=== PATIENT | male | born 1955 | race Caucasian/White ===

== ENCOUNTER 2023-02-16 06:42 | Outpatient (OUT) | payer MEDICARE, SELFPAY ==
[2023-02-16 07:19] LABS: Basophils Absolute Auto 0.1 10^3/uL (0.0-0.1); Basophils Percent Auto 0.9 % (0.2-2.0); Eosinophils Absolute Auto 0.4 10^3/uL (0.0-0.7); Hematocrit 44.3 % (42.0-54.0); Immature Granulocytes Abs Auto 0.02 10^3/uL (0.00-0.03); Immature Granulocytes Pct Auto 0.3 % (0.0-0.5); Lymphocytes Absolute Auto 2.1 10^3/uL (1.2-3.8); Lymphocytes Percent Auto 30.5 % (20.5-60.0); Mean Corpuscular HGB Conc 33.9 g/dL (29.9-35.2); Mean Corpuscular Hemoglobin 30.9 pg (25.9-34.0); Mean Corpuscular Volume 91.2 fL (80.0-94.0); Mean Platelet Volume 9.5 fL (9.5-13.5); Monocytes Absolute Auto 0.6 10^3/uL (0.3-0.8); Monocytes Percent Auto 8.7 % (1.7-12.0); Neutrophils Absolute Auto 3.6 10^3/uL (1.4-6.5); Neutrophils Percent Auto 53.6 % (43.0-75.0); Platelet Count 257 10^3/uL (150-450); Red Blood Count 4.86 10^6/uL (4.70-6.10); Red Cell Distribution Width 12.7 % (11.0-15.0); White Blood Count 6.8 10^3/uL (4.0-11.0)
[2023-02-16 07:27] LABS: Estimated Average Glucose 171 mg/dL; Glycohemoglobin A1C 7.6 % (4.5-6.2)
[2023-02-16 07:31] LABS: Alanine Aminotransferase 31 U/L (16-63); Albumin Globulin Ratio 1.1; Albumin Level 3.9 g/dL (3.4-5.0); Alkaline Phosphatase 103 U/L (46-116); Anion Gap 12.4; Aspartate Amino Transferase 15 U/L (15-37); BUN Creatinine Ratio 15.2; Bilirubin Total 0.6 mg/dL (0.2-1.0); Calcium 9.4 mg/dL (8.5-10.1); Chloride 101 mmol/L (98-107); Estimated GFR (African America >60 (>=60); Estimated GFR (Non-African Ame 58 (>=60); Globulin 3.5 g/dL; Glucose 194 mg/dL (74-106); Potassium 4.4 mmol/L (3.5-5.1); Sodium 138 mmol/L (136-145); Total Protein 7.4 g/dL (6.4-8.2)
[2023-02-16 08:20] LABS: Microalbumin Urine Random 4.7 mg/dL (<=30.0)
[2023-02-16 08:40] LABS: Prostate Specific Antigen Scrn <0.13 ng/mL (<=4.00)
[2023-02-16 08:49] LABS: Bilirubin Urine NEGATIVE (NEGATIVE); Blood Urine MODERATE (NEGATIVE); Clarity Urine CLEAR (CLEAR); Color Urine LT. YELLOW (YELLOW); Glucose Urine UA NEGATIVE (NEGATIVE); Ketones Urine NEGATIVE (NEGATIVE); Leukocyte Esterase Urine NEGATIVE (NEGATIVE); Nitrite Urine NEGATIVE (NEGATIVE); Protein Urine NEGATIVE (NEG/TRACE); Specific Gravity Urine >=1.030 (1.005-1.025); Urobilinogen Urine 0.2 EU/dL (0.2-1.0); pH Urine 5.5 (5.0-9.0)
[2023-02-16 08:59] LABS: Bacteria Urine NONE SEEN #/HPF (NONE SEEN); WBC Urine NONE SEEN #/HPF (NONE SEEN)
[2023-02-16 09:00] LABS: Crystals Seen? None Seen #/HPF (None Seen); Mucus Urine MODERATE (NONE SEEN); Squamous Epithelial Cell Urine FEW #/LPF (NONE/RARE)
[2023-02-16 09:01] LABS: Cast Seen? NONE SEEN #/LPF (NONE SEEN)
== END 2023-02-16 06:43 ==
LOC: LAB 06:46
PROVIDERS: PCP Nurse Practitioner; Visit Provider Nurse Practitioner
DX: I48.91 Unspecified atrial fibrillation (principal); E55.9 Vitamin D deficiency, unspecified; I10 Essential (primary) hypertension; Z12.5 Encounter for screening for malignant neoplasm of prostate
CPT/HCPCS: 36415; 80053; 81001; 82043; 82306; 83036; 85025; G0103

== ENCOUNTER 2024-02-25 06:40 | Outpatient (OUT) | payer MEDICARE, SELFPAY ==
[2024-02-25 07:11] LABS: Basophils Absolute Auto 0.1 10^3/uL (0.0-0.1); Basophils Percent Auto 0.9 % (0.2-2.0); Eosinophils Absolute Auto 0.6 10^3/uL (0.0-0.7); Eosinophils Percent Auto 8.1 % (0.9-7.0); Hematocrit 42.9 % (42.0-54.0); Hemoglobin 14.4 g/dL (14.0-18.0); Immature Granulocytes Abs Auto 0.02 10^3/uL (0.00-0.03); Immature Granulocytes Pct Auto 0.3 % (0.0-0.5); Lymphocytes Absolute Auto 2.3 10^3/uL (1.2-3.8); Lymphocytes Percent Auto 29.3 % (20.5-60.0); Mean Corpuscular HGB Conc 33.6 g/dL (29.9-35.2); Mean Corpuscular Hemoglobin 31.2 pg (25.9-34.0); Mean Corpuscular Volume 92.9 fL (80.0-94.0); Monocytes Absolute Auto 0.8 10^3/uL (0.3-0.8); Monocytes Percent Auto 10.1 % (1.7-12.0); Neutrophils Percent Auto 51.3 % (43.0-75.0); Platelet Count 273 10^3/uL (150-450); Red Blood Count 4.62 10^6/uL (4.70-6.10); Red Cell Distribution Width 12.4 % (11.0-15.0); White Blood Count 7.7 10^3/uL (4.0-11.0)
[2024-02-25 07:15] LABS: Bilirubin Urine NEGATIVE (NEGATIVE); Blood Urine SMALL (NEGATIVE); Clarity Urine CLEAR (CLEAR); Color Urine YELLOW (YELLOW); Glucose Urine UA NEGATIVE (NEGATIVE); Ketones Urine NEGATIVE (NEGATIVE); Leukocyte Esterase Urine NEGATIVE (NEGATIVE); Nitrite Urine NEGATIVE (NEGATIVE); Protein Urine NEGATIVE (NEG/TRACE); Specific Gravity Urine >=1.030 (1.005-1.025); Urobilinogen Urine 0.2 EU/dL (0.2-1.0)
[2024-02-25 07:21] LABS: Creatinine Urine Random 216.64 mg/dL (20.00-300.00); Microalbum Creatinine Ratio Ur 17.5 mg/g (0.0-29.9); Microalbumin Urine Random 3.8 mg/dL (<=30.0)
[2024-02-25 07:23] LABS: Estimated Average Glucose 160 mg/dL; Glycohemoglobin A1C 7.2 % (4.5-6.2)
[2024-02-25 07:30] LABS: Urine Microscopic Indicated YES
[2024-02-25 07:32] LABS: Bacteria Urine NONE SEEN #/HPF (NONE SEEN); WBC Urine NONE SEEN #/HPF (NONE SEEN)
[2024-02-25 07:33] LABS: Mucus Urine LARGE (NONE SEEN); Squamous Epithelial Cell Urine FEW #/LPF (NONE/RARE)
[2024-02-25 08:20] LABS: Alanine Aminotransferase 30 U/L (16-63); Albumin Globulin Ratio 1.2; Albumin Level 3.8 g/dL (3.4-5.0); Alkaline Phosphatase 89 U/L (46-116); Anion Gap 11.4; Aspartate Amino Transferase 16 U/L (15-37); BUN Creatinine Ratio 14.7; Bilirubin Total 0.8 mg/dL (0.2-1.0); Calcium 9.3 mg/dL (8.5-10.1); Carbon Dioxide 28.9 mmol/L (21.0-32.0); Chloride 103 mmol/L (98-107); Chol HDL Ratio 2.8; Cholesterol 132 mg/dL (<=200); Estimated GFR (African America >60 (>=60); Estimated GFR (Non-African Ame >60 (>=60); Globulin 3.3 g/dL; Glucose 161 mg/dL (74-106); HDL Cholesterol 47 mg/dL (40-60); Potassium 4.3 mmol/L (3.5-5.1); Sodium 139 mmol/L (136-145); Total Protein 7.1 g/dL (6.4-8.2); Triglycerides 135 mg/dL (<=150)
[2024-02-25 08:56] LABS: Prostate Specific Antigen Dx 0.16 ng/mL (<=4.00)
== END 2024-02-25 06:41 | disposition home or self-care (01) ==
LOC: LAB 06:40
PROVIDERS: PCP Nurse Practitioner; Visit Provider Nurse Practitioner
DX: E78.2 Mixed hyperlipidemia (principal); I48.20 Chronic atrial fibrillation, unspecified; Z12.5 Encounter for screening for malignant neoplasm of prostate; E55.9 Vitamin D deficiency, unspecified; E11.9 Type 2 diabetes mellitus without complications; K21.9 Gastro-esophageal reflux disease without esophagitis; I10 Essential (primary) hypertension
CPT/HCPCS: 36415; 80053; 80061; 81001; 82043; 82306; 82570; 83036; 84153; 85025

== ENCOUNTER 2024-07-31 07:49 | Outpatient (OUT) | payer MEDICARE, SELFPAY ==
--- NOTE | 2024-07-31 07:52 | VEIN_ITS ---
The [address] [address] Patient Name: EDGAR BARNEY MRN: [id number] date: 1955 Sex: M Assigned Patient Location: Current Patient Location: Accession/Order Number: [id number] Exam Date: 07/31/2024 07:54 Report Date: 08/02/2024 10:11 At the request of: KALANI MCKINNEY Procedure: VC SEGMENTAL PRESSURES EXAM: VC SEGMENTAL PRESSURES HISTORY: Peripheral arterial disease I73.9 COMPARISON: None. TECHNIQUE: Resting ABIs and segmental limb pressures FINDINGS: Right resting RAFA normal at 1.24. Left resting RAFA normal at 1.18. Toe pressure gradients were seen. Waveforms multiphasic. VEIN/VC SEGMENTAL PRESSURES IMPRESSION: Normal resting ABIs. No pressure gradients. Electronically authenticated by: Mark CÁRDENAS Date: 08/02/2024 10:11
--- OUTSIDE RECORDS SUMMARY | 2024-07-31 08:10 | XMS_ITS | CCD ---
Author Organization [facility] Care Team Providers Care Junior Art Director Name Role Phone CANDIDO BLOOD Admitting Unavailable CANDIDO BLOOD Attending Unavailable AICHHOLZ, DANIELA Primary Care Unavailable AICHHOLZ, DANIELA Referring Unavailable AICHHOLZ, DANIELA J Primary Care Physician [phone] DR ELIZABETH CROW Admitting Unavailabl e MIGNON, DR ELIZABETH Palma Attending Unavailabl e AICHHOLZ, BARIATRIC PHYSICIAN DANIELA Primary Care Unavailable DR ELIZABETH CROW Consulting UnavailDR ENID Gutierrez V Consulting Unavailable DR PEÑA BRONSON Consulting Unavailable AICHHOLZ, BARIATRIC PHYSICIAN DANIELA Admitting Unavailable AICHHOLZ, BARIATRIC PHYSICIAN DANIELA Attending Unavailable AICHHOLZ, BARIATRIC PHYSICIAN DANIELA Primary Care Unavailable AICHHOLZ, BARIATRIC PHYSICIAN DANIELA Consulting Unavailable AICHHOLZ, BARIATRIC PHYSICIAN DANIELA Admitting Unavailable AICHHOLZ, BARIATRIC PHYSICIAN DANIELA Attending Unavailable AICHHOLZ, BARIATRIC PHYSICIAN DANIELA Primary Care Unavailable AICHHOLZ, BARIATRIC PHYSICIAN DANIELA Consulting Unavailable AICHHOLZ, BARIATRIC PHYSICIAN DANIELA Admitting Unavailable AICHHOLZ, BARIATRIC PHYSICIAN DANIELA Attending Unavailable AICHHOLZ, BARIATRIC PHYSICIAN DANIELA Primary Care Unavailable DR ENID LONGORIA V Consulting Unavailable AICHHOLZ, BARIATRIC PHYSICIAN DANIELA Consulting Unavailable LUE ., MILAGRO M Admitting Unavailable LUE ., MILAGRO M Attending Unavailable AICHHOLZ, BARIATRIC PHYSICIAN DANIELA Primary Care Unavailable LUE ., MILAGRO M Consulting Unavailable KRISTOFER ALLEN Consulting Unavailable AICHHOLZ, BARIATRIC PHYSICIAN DANIELA Admitting Unavailable AICHHOLZ, BARIATRIC PHYSICIAN DANIELA Attending Unavailable AICHHOLZ, BARIATRIC PHYSICIAN DANIELA Primary Care Unavailable DR ENID LONGORIA V Consulting Unavailable AICHHOLZ, BARIATRIC PHYSICIAN DANIELA Consulting Unavailable LUE ., MILAGRO M Consulting Unavailable RASHI GRAFF Attending Unavailable Aichholz SENIOR LEAD PROJECT MANAGER, Daniela Unavailable AICHHOLZ, DANIELA Attending Unavailable AICHHOLZ, DANIELA Attending Unavailable Medications Current Medications Medication Drug Class(es) Dates Sig (Normalized) Sig (Original) apixaban 5 mg oral tablet (3 sources) Factor Xa Inhibitor Start: 10-13-2023 End: 10-12-2024 take 1 tablet by mouth in the morning apixaban (Eliquis) 5 MG tablet Take 5 mg by mouth in the morning and 5 mg in the evening. 10/13/2023 10/12/2024 Active Start: 02-25-2022 Eliquis 5 mg o ral tablet Refills(s) 0 Start Date: 02/25/22 Status: Ordered aspirin 81 mg delayed release oral tablet (4 sources) Platelet Aggregation Inhibitor, Nonsteroidal Anti-inflammatory Drug Start: 04-05-2024 End: 10-03-2024 take 1 tablet by mouth once daily aspirin 81 MG EC tablet Indications: Chronic atrial fibrillation (HCC) (CMS/HCC) , Type 2 diabetes mellitus without complication, without long-term current use of insulin (CMS/HCC) Take 1 tablet (81 mg) by mouth Daily 90 tablet 1 07/05/2024 10/03/2024 Active Start: 02-25-2022 take 1 mg by mouth e very four hours aspirin 81 mg oral capsule mg cap(s), Oral, q4hr, Refills(s) 0 Start Date: 02/25/22 Status: Ordered atorvastatin 40 mg oral tablet (4 sources) HMG-CoA Reductase Inhibitor Start: 04-05-2024 End: 10-03-2024 take 1 tablet by mouth at bedtime atorvastatin (Lipitor) 40 MG tablet Indications: Mixed hyperlipidemia (CMS/HCC) Take 1 tablet (40 mg) by mouth at bedtime 90 tablet 1 07/05/2024 10/03/2024 Active Start: 02-25-2022 atorvastatin 4 0 mg Tab Refills(s) 0 Start Date: 02/25/22 Status: Ordered losartan potassium 100 mg oral tablet (4 sources) Angiotensin 2 Receptor Tita Start: 04-05-2024 End: 10-03-2024 take 1 tablet by mouth once daily losartan (Cozaar) 100 MG tablet Indications: Benign essential hypertension (CMS/HCC) Take 1 tablet (100 mg) by mouth Daily 90 tablet 1 07/05/2024 10/03/2024 Active Start: 02-25-2022 losartan 50 mg Tab Refills(s) 0 Start Date: 02/25/22 Status: Ordered metFORMIN hydrochloride 1000 mg oral tablet (4 sources) Biguanide Start: 04-05-2024 End: 10-03-2024 take 1 tablet by mouth in the morning metFORMIN (Glucophage) 1000 MG tablet Indications: Type 2 diabetes mellitus without complication, without long-term current use of insulin (CMS/HCC) Take 1 tablet (1,000 mg) by mouth in the morning and 1 tablet (1,000 mg) in the evening. Take with meals. 180 tablet 1 07/05/2024 10/03/2024 Active Start: 02-25-2022 metformin 1000 mg oral tablet Refills(s) 0 Start Date: 02/25/22 Status: Ordered metoprolol tartrate 50 mg oral tablet (4 sources) beta-Adrenergic Tita Start: 04-05-2024 End: 10-03-2024 take 1 tablet by mouth in the morning metoprolol tartrate (Lopressor) 50 MG tablet Indications: Chronic atrial fibrillation (HCC) (CMS/HCC) , Benign essential hypertension (CMS/HCC) Take 1 tablet (50 mg) by mouth in the morning and 1 tablet (50 mg) before bedtime. 180 tablet 1 07/05/2024 10/03/2024 Active Start: 02-25-2022 Metoprolol tar trate 50 mg Tab Refills(s) 0 Start Date: 02/25/22 Status: Ordered pioglitazone 45 mg oral tablet (4 sources) Peroxisome Proliferator Receptor alpha Agonist, Peroxisome Proliferator Receptor gamma Agonist, Thiazolidinedione Start: 06-12-2024 End: 10-03-2024 take 1 tablet by mouth once daily pioglitazone (Actos) 45 MG tablet Indications: Type 2 diabetes mellitus without complication, without long-term current use of insulin (CMS/HCC) Take 1 tablet (45 mg) by mouth Daily 90 tablet 1 07/05/2024 10/03/2024 Active Start: 02-25-2022 pioglitazone 3 0 mg Tab Refills(s) 0 Start Date: 02/25/22 Status: Ordered Completed/Discontinued Medications Medication Drug Class(es) Dates Sig (Normalized) Sig (Original) cephalexin 500 mg oral capsule (2 sources) Cephalosporin Antibacterial Start: 02-25-2022 take 1 capsule by mouth once daily Keflex 500 mg Cap 500 mg = 1 cap(s), Oral, q12hr, take 1 cap the evening prior to scheduled procedure, take 2nd capsule the day of scheduled procedure, # 2 cap(s), Refills(s) 0, Pharmacy: [facility] [id number], 174, cm, 02/25/22 8:28:00 EDT, Height/Length Dosing, 74... Start Date: 02/25/22 Status: Ordered Problems Active Problems Problem Classification Problem Date Documented Date Episodic/Chronic Cardiac dysrhythmias (5 sources) Unspecified atrial fibrillation; 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: [Paroxysmal atrial fibrillation] Onset: 01-23-2022 Chronic Diabetes mellitus without complication (7 sources) Type 2 diabetes mellitus without complications; 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: [Type 2 diabetes mellitus without complication] Onset: 01-23-2022 Chronic Disorders of lipid metabolism (4 sources) Mixed hyperlipidemia; 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: [Mixed hyperlipidemia] Onset: 09-29-2023 Chronic Esophageal disorders (1 source) Gastroesophageal reflux disease; 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: [Gastro-esophageal reflux disease without esophagitis] Onset: 04-09-2008 01-17-2024 Chronic Essential hypertension (6 sources) Essential (primary) hypertension; 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: [Benign essential hypertension] Onset: 01-21-2022 Chronic Nutritional deficiencies (2 sources) Vitamin D deficiency, unspecified; 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: [Vitamin D deficiency] Onset: 01-23-2022 01-17-2024 Chronic Other aftercare (1 source) Long-term current use of anticoagulant; 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: [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] Onset: 02-25-2022 Episodic Other nutritional; endocrine; and metabolic disorders (1 source) Hypercalcemia; 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: [Hypercalcemia] Onset: 01-17-2024 01-17-2024 Chronic Residual codes; unclassified (1 source) Obstructive sleep apnea syndrome; 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: [Obstructive sleep apnea (adult) (pediatric)] Onset: 04-09-2008 01-17-2024 Chronic Unclassified (1 source) Asymptomatic microscopic hematuria 03-03-2022 Unclassified (1 source) Drug therapy finding 03-03-2022 Unclassified (1 source) Patient encounter status 03-03-2022 Past or Other Problems Problem Classification Problem Date Documented Da te Episodic/Chronic Biliary tract disease (4 sources) Other specified diseases of gallbladder; 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: [OTHER SPEC DISEASES GALLBLADDER] Onset: 03-23-2022 Episodic Genitourinary symptoms and ill-defined conditions (9 sources) Microscopic hematuria; 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: [Asymptomatic microscopic hematuria] Onset: 02-25-2022 Episodic Mood disorders (1 source) Mood disorders Onset: 01-25-2024 01-25-2024 Other aftercare (1 source) Drug therapy finding; 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: [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] Onset: 01-25-2024 01-25-2024 Episodic Other screening for suspected conditions (not mental disorders or infectious disease) (7 sources) Encounter for screening for malignant neoplasm of prostate; 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: [Screening for malignant neoplasm done] Onset: 01-23-2022 Episodic Results Test Name Value Interpretation Reference Range Facility Office Visiton 09-29-2023 Follow-up visit [id number] Serg Velasquez 1955 [facility] Provider Department Center 09/29/2023 RASHI BRITO Family History Problem Relation Age of Onset Coronary artery disease Mother Hypertension Mother Hyperlipidemia Mother Diabetes Father Family Status - Relation Status Age at Mother Father Level of Service:97692 [place] OFFICE/OUTPATIENT ESTABLISHED LOW MDM 20 MIN Reason for Visit and Comments: Follow-up [033666] Normal [facility] Orders Onlyon 09-29-2023 Orders Only [id number] Serg Velasquez 1955 Provider Department Center 09/29/2023 CINDY SALOMON Family History Problem Relation Age of Onset Coronary artery disease Mother Hypertension Mother Hyperlipidemia Mother Diabetes Father Family Status - Relation Status Age at Mother Father Normal [facility] GLYCOHEMOGLOBIN A1Con 2021 ADA RECOMMENDATION SEE BELOW Normal [facility] [place] Comment on above: Result Comment: ADA RECOMMENDED LIMIT 4.0 - 6.0 ADA THERAPEUTIC TARGET < 7.0 ACTION SUGGESTED > 7.0 Performed By: #### A 1C ####[facility] [id number] [place] [address]Dr. Fern Caballero Glucose [Mass/Vol] 177 mg/dL Normal [facility] Comment on above: Performed By: #### A 1C ####[facility] [id number] [place] [address]DrViet Caballero HbA1c (Bld) [Mass fraction] 7.8 % Critically high 4.5-6.2 [facility] Comment on above: Performed By: #### A 1C ####[facility] [id number] [place], [place] [address]OuViet Caballero MRI ABDOMEN WO W CONon 04-02 MRI ABDOMEN WO W CON EXAMINATION: MRI ABDOMEN WO W CON, MRI ABDOMEN WO CON HISTORY: Abnormal findings diagnostic imaging of liver+biliary tract COMPARISON: No relevant comparison available. TECHNIQUE: A comprehensive MRI examination of the abdomen was performed to optimize visualization of suspected pathology. Images were obtained both before and after intravenous administration of 15 ml Dotarem contrast. FINDINGS: LIVER: No enlargement, atrophy, abnormal density, or significant focal lesion. BILIARY: Normal appearance of the intrahepatic and extrahepatic biliary ducts and visualized pancreatic ducts with no filling defect or stricture or occlusion. Heterogeneous 1.3 x 1.0 cm area of decreased signal in the gallbladder fundus seen best on axial SSFP image #21, this area does not demonstrate postcontrast enhancement PANCREAS: No lesion, fluid collection, ductal dilatation, or atrophy. SPLEEN: No enlargement or focal lesion. KIDNEYS: 2.1 cm right renal cortical cyst. No hydronephrosis. ADRENALS: No mass or enlargement. AORTA/VASCULAR: No aneurysm or dissection. RETROPERITONEUM: No mass or adenopathy. BOWEL/MESENTERY: No visible mass, obstruction, or bowel wall thickening. ABDOMINAL WALL: No mass or hernia. BONES: No bony lesion or fracture. LUNG BASES: No visible pleural disease. Lung bases not well assessed with MRI. OTHER: Negative. IMPRESSION: 1.3 cm area of nonenhancing signal abnormality in the gallbladder fundus corresponding to the ultrasound and CT findings. This is nonspecific. Consider one month follow-up ultrasound Electronically authenticated by: ENID LONGORIA Date: 2022-04-02 17:17 Normal [facility] XR FOREIGN BODY EYEon 2021 XR FOREIGN BODY EYE EXAMINATION: XR FOREIGN BODY EYE HISTORY: Foreign body in eye COMPARISON: No relevant comparison available. FINDINGS: ORBITS: Negative for a metallic foreign body. OTHER: Negative. IMPRESSION: 1. No metallic foreign body within the orbits. Electronically authenticated by: PEÑA BRONSON Date: 2022-04-02 07:47 Normal [facility] US SINGLE QUAD RT UPPERon US SINGLE QUAD RT UPPER EXAMINATION: US SINGLE QUAD RT UPPER HISTORY: Disorder of gallbladder COMPARISON: 03/02/2022 CT exam FINDINGS: The liver is normal in size and contour. Diffuse increase in hepatic echotexture. No focal hepatic mass. Area of hypoechogenicity at the gallbladder fossa, focal fatty sparing is favored Hepatopedal flow in the main portal vein with a velocity of 32 cm/s. The gallbladder is normal in size. Area of soft tissue attenuation is identified in the gallbladder fundus measuring 2.2 x 1.6 x 1.5 cm with areas of calcification. The gallbladder wall is thickened measuring 4 mm.. The common bile duct measures 3 mm, normal. The right kidney is normal in appearance measuring 9.8 x 5.2 x 5.7 cm per the cortex measures 1.4 cm, normal. No solid cortical mass or hydronephrosis. Area of anechoic echogenicity measuring 2.1 cm, simple cortical cyst IMPRESSION: 2.2 cm hypoechoic mass with calcification in the gallbladder fundus corresponding to the CT findings. Malignancy should be considered. Underlying gallbladder wall thickening measuring 4 mm Electronically authenticated by: ENID LONGORIA Date: 2022-03-23 08:19 Normal [facility] Consent for Procedure/Surger yon 03-04-2022 Consent for Procedure/Surgery [id number]# 1.00CD:127 Normal [facility] RAD - CT Reporton 03-04-2022 RAD - CT Report [id number]# 1.00CD:127 Normal [facility] Screenson 03-04-2022 Screens [id number]# 1.00CD:127 Normal [facility] Screens [id number]# 1.00CD:127 Normal [facility] Ambulatory Visit Summaryon 0 03-03-2022 Ambulatory Visit Summary SERG VELASQUEZ :1955 Visit Date:03/03/2022 Ambulatory Visit Instructions Your Diagnosis Asymptomatic microscopic hematuria Your Care Team Attending Physician - Nick CHAVES, Milagro Meyer Primary Care Physician - DANIELA MENDOZA CNP This Is Your Medications List cephalexin (Keflex 500 mg Cap) Contact prescribing physician if questions or concerns apixaban (Eliquis 5 mg oral tablet) aspirin (aspirin 81 mg oral capsule) atorvastatin (atorvastatin 40 mg Tab) losartan (losartan 50 mg Tab) metformin (metformin 1000 mg oral tablet) metoprolol (Metoprolol tartrate 50 mg Tab) pioglitazone (pioglitazone 30 mg Tab) Procedures Performed Colonoscopy, Hernia. Discharge Vitals Heart Rate (Peripheral) 75 Blood Pressure 126/81 Height 174.0 cm Height 174 cm Weight 74.0 kg Weight 74 kg BMI 24.44 Medications What How Much When Instructions Unchanged cephalexin (Keflex 500 mg Cap) 1 Capsules By Mouth Every 12 hours take 1 cap the evening prior to scheduled procedure, take 2nd capsule the day of scheduled procedure Unchanged apixaban (Eliquis 5 mg oral tablet) Contact prescribing physician if questions or concerns Unchanged aspirin (aspirin 81 mg oral capsule) By Mouth Every 4 hours Contact prescribing physician if questions or concerns Unchanged atorvastatin (atorvastatin 40 mg Tab) Contact prescribing physician if questions or concerns Unchanged losartan (losartan 50 mg Tab) Contact prescribing physician if questions or concerns Unchanged metformin (metformin 1000 mg oral tablet) Contact prescribing physician if questions or concerns Unchanged metoprolol (Metoprolol tartrate 50 mg Tab) Contact prescribing physician if questions or concerns Unchanged pioglitazone (pioglitazone 30 mg Tab) Contact prescribing physician if questions or concerns Allergies No Known Medication Allergies Problems Ongoing - Any problem that you are currently receiving treatment for. Anticoagulated Asymptomatic microscopic hematuria Microscopic hematuria Prostate cancer screening Education Materials Hematuria, Adult Hematuria is blood in the urine. Blood may be visible in the urine, or it may be identified with a test. This condition can be caused by infections of the bladder, urethra, kidney, or prostate. Other possible causes include: ? Kidney stones. ? Cancer of the urinary tract. ? Too much calcium in the urine. ? Conditions that are passed from parent to child (inherited conditions). ? Exercise that requires a lot of energy. Infections can usually be treated with medicine, and a kidney stone usually will pass through your urine. If neither of these is the cause of your hematuria, more tests may be needed to identify the cause of your symptoms. It is very important to tell your health care provider about any blood in your urine, even if it is painless or the blood stops without treatment. Blood in the urine, when it happens and then stops and then happens again, can be a symptom of a very serious condition, including cancer. There is no pain in the initial stages of many urinary cancers. Follow these instructions at home: Medicines ? Take gfhd-esh-ekmpnts and prescription medicines only as told by your health care provider. ? If you were prescribed an antibiotic medicine, take it as told by your health care provider. Do not stop taking the antibiotic even if you start to feel better. Eating and drinking ? Drink enough fluid to keep your urine clear or pale yellow. It is recommended that you drink 3?4 quarts (2.8?3.8 L) a day. If you have been diagnosed with an infection, it is recommended that you drink cranberry juice in addition to large amounts of water. ? Avoid caffeine, tea, and carbonated beverages. These tend to irritate the bladder. ? Avoid alcohol because it may irritate the prostate (men). General instructions ? If you have been diagnosed with a kidney stone, follow your health care provider's instructions about straining your urine to catch the stone. ? Empty your bladder often. Avoid holding urine for long periods of time. ? If you are female: ? After a bowel movement, wipe from front to back and use each piece of toilet paper only once. ? Empty your bladder before and after sex. ? Pay attention to any changes in your symptoms. Tell your health care provider about any changes or any new symptoms. ? It is your responsibility to get your test results. Ask your health care provider, or the department performing the test, when your results will be ready. ? Keep all follow-up visits as told by your health care provider. This is important. Contact a health care provider if: ? You develop back pain. ? You have a fever. ? You have nausea or vomiting. ? Your symptoms do not improve after 3 days. ? Your symptoms get worse. Get help right away if: ? You develop severe vomi (more content not included)... Normal [facility] Lab Reportson 03-03-2022 Lab Reports [id number] #1.00CD:127 Normal [facility] Patient Educationon 03-03-20 Patient Education Urology Hematuria, Adult Hematuria is blood in the urine. Blood may be visible in the urine, or it may be identified with a test. This condition can be caused by infections of the bladder, urethra, kidney, or prostate. Other possible causes include: ? Kidney stones. ? Cancer of the urinary tract. ? Too much calcium in the urine. ? Conditions that are passed from parent to child (inherited conditions). ? Exercise that requires a lot of energy. Infections can usually be treated with medicine, and a kidney stone usually will pass through your urine. If neither of these is the cause of your hematuria, more tests may be needed to identify the cause of your symptoms. It is very important to tell your health care provider about any blood in your urine, even if it is painless or the blood stops without treatment. Blood in the urine, when it happens and then stops and then happens again, can be a symptom of a very serious condition, including cancer. There is no pain in the initial stages of many urinary cancers. Follow these instructions at home: Medicines ? Take uunq-oml-pqxwnfw and prescription medicines only as told by your health care provider. ? If you were prescribed an antibiotic medicine, take it as told by your health care provider. Do not stop taking the antibiotic even if you start to feel better. Eating and drinking ? Drink enough fluid to keep your urine clear or pale yellow. It is recommended that you drink 3?4 quarts (2.8?3.8 L) a day. If you have been diagnosed with an infection, it is recommended that you drink cranberry juice in addition to large amounts of water. ? Avoid caffeine, tea, and carbonated beverages. These tend to irritate the bladder. ? Avoid alcohol because it may irritate the prostate (men). General instructions ? If you have been diagnosed with a kidney stone, follow your health care provider's instructions about straining your urine to catch the stone. ? Empty your bladder often. Avoid holding urine for long periods of time. ? If you are female: ? After a bowel movement, wipe from front to back and use each piece of toilet paper only once. ? Empty your bladder before and after sex. ? Pay attention to any changes in your symptoms. Tell your health care provider about any changes or any new symptoms. ? It is your responsibility to get your test results. Ask your health care provider, or the department performing the test, when your results will be ready. ? Keep all follow-up visits as told by your health care provider. This is important. Contact a health care provider if: ? You develop back pain. ? You have a fever. ? You have nausea or vomiting. ? Your symptoms do not improve after 3 days. ? Your symptoms get worse. Get help right away if: ? You develop severe vomiting and are unable take medicine without vomiting. ? You develop severe pain in your back or abdomen even though you are taking medicine. ? You pass a large amount of blood in your urine. ? You pass blood clots in your urine. ? You feel very weak or like you might faint. ? You faint. Summary ? Hematuria is blood in the urine. It has many possible causes. ? It is very important that you tell your health care provider about any blood in your urine, even if it is painless or the blood stops without treatment. ? Take eyyy-dqj-hiryvvr and prescription medicines only as told by your health care provider. ? Drink enough fluid to keep your urine clear or pale yellow. This information is not intended to replace advice given to you by your health care provider. Make sure you discuss any questions you have with your health care provider. Document Released: 08/30/2006 Document Revised: 01/24/2020 Document Reviewed: 10/02/2017 [employer] Patient Education ? 2019 CDP. Zahida [facility] Urology Office/Clinic Noteon 03-03-2022 Urology Office/Clinic Note Chief Complaint Pt is here for cystoscopy HPI Staff Ulrich is a 67 y.o. male here for a cystoscopy. ABX taken. History of Present Illness reviewed medical history no associated fever, chills, pain or blood. Review of Systems PHQ Score Initial Depression Screen Score: 0 ROS - Provider Constitutional: denies weight loss, denies hot flashes. Eyes: denies eye problems. Gastrointestinal: denies nausea, denies vomiting. Cardiovascular: denies chest pain or angina. Integumentary: no dryness Musculoskeletal: denies musculoskeletal symptoms. ENMT: denies otolaryngeal symptoms. Respiratory: no shortness of breath. Heme/Lymph: denies easy bleeding tendency, denies easy bruising tendency. Psychiatric: no confusion, no anxiety. Genitourinary: denies dysuria, denies hematuria, denies discharge, denies urinary frequency, denies urinary hesitancy, denies nocturia, denies incontinence, denies genital sores, denies decreased libido, and denies erectile dysfunction. Physical Exam Vitals & Measurements HR: 75(Peripheral) BP: 126/81 HT: 174.0 cm HT: 174 cm WT: 74.0 kg WT: 74 kg BMI: 24.44 Procedure Operative Information Anesthesia Type: Local Procedure: Local Cystoscopy Complications: None Surgical risks, benefits, details of the procedure have been explained to the patient. Full informed consent has been obtained. Intraoperative Information Prepped: Patient is brought back to the endoscopy suite. Patient is placed in supine position. Patient prepped in the usual fashion with Betadine solution. 2% Xylocaine Jelly is placed per Urethra. After waiting several minutes, the Cystoscope is introduced. The Urethra is: Normal The Prostatic Urethra is: Unobstructed, mild bilobar hypertrophy with elevated bladder neck, no intravesical component The Bladder: Normal, Trabeculated: None (0) No bladder tumors or lesions The Ureteral orifices: Show efflux of clear urine Removal: Cystoscope is removed. The patient tolerated it well. Postoperative Information Patient is discharged home with antibiotic coverage. Follow up arranged. Assessment/Plan 67 yo M with repeat asymptomatic microscopic hematuria 1. Asymptomatic microscopic hematuria (R31.21: Asymptomatic microscopic hematuria) CTU at [facility] on 03-02-2022 negative for filling defects or potential etiology for microhematuria Urine cytology negative Cystoscopy today negative No other concerning urologic issues. Cont rda screening with PCP, has been wnl Follow up prn Follow-up With When Contact Information Nick CHAVES, Milagro Meyer, URL, URO Only if needed [address] [place] [address]- [phone] Additional Instructions: Patient Education Hematuria, Adult I, Virgen Mcclelland, personally scribed for Dr. Romero on 03/03/2022 10:04:11. . Documentation recorded by the scribVirgen palma, accurately reflects the services(s) I performed and decisions made by me. Authenticated by Dr. Romero on 03/03/2022 10:21:55. Problem List/Past Medical History Ongoing Anticoagulated Asymptomatic microscopic hematuria Microscopic hematuria Prostate cancer screening Historical No qualifying data Procedure/Surgical History Colonoscopy, Hernia. Medications aspirin 81 mg oral capsule, Oral, q4hr atorvastatin 40 mg Tab Eliquis 5 mg oral tablet Keflex 500 mg Cap, 500 mg= 1 cap(s), Oral, q12hr losartan 50 mg Tab metformin 1000 mg oral tablet Metoprolol tartrate 50 mg Tab pioglitazone 30 mg Tab Allergies No Known Medication Allergies Social History Tobacco Former smoker, quit more than 30 days ago Tobacco Use:., 02/25/2022 Family History Diabetes mellitus type 2: Mother and Father. Heart disease: Mother. High blood pressure: Mother. High cholesterol: Mother. Immunizations Vaccine Date Status SARS-CoV-2 mRNA (tozinameran 5y-11y) vac 07/28/2021 Recorded SARS-CoV-2 mRNA (tozinameran 5y-11y) vac 11/20/2020 Recorded Normal [facility] Comment on above: Result Comment: Elec tronically Signed By: Milagro Romero MD\.br\Date and Time Signed: 03/03/22 10:22 EDT\.br\Electronically Co-Signed By: Virgen Mcclelland\.br\Date and Time Co-Signed: 03/03/22 10:04 EDT CREATININEon 03-02-2022 Creatinine [Mass/Vol] 1.23 mg/dL Normal 0.70-1.30 [facility] Comment on above: Performed By: #### C LYNN ####[facility] [address] [address]Dr. Fern Caballero EGFR-AF ISRAELI >60 Normal >=60 [facility] Comment on above: Performed By: #### C LYNN ####[facility] [address] [address]Dr. Fern Caballero EGFR-NON AF ISRAELI 59 mL/min/1.73m2 Critically low >=60 [facility] Comment on above: Performed By: #### C LYNN ####[facility] [address] [place], [place] [address]Dr. Fern Caballero CT ABD/PELV WO W CONon 03-02 CT ABD/PELV WO W CON CT ABD/PELV WO W CO N EXAM DATE: 03/02/2022 5:27 AM MDT COMPARISON: KUB 02/10/2022 INDICATION: Microscopic hematuria TECHNIQUE: Helically acquired multidetector CT of the abdomen and pelvis acquired without intravenous contrast and then in the nephro-pyelographic phase after the uneventful administration of 50 mL of Omnipaque 300 injected intravenously. Excretory phase was also obtained. No oral contrast was administered. Images were acquired in the axial plane and reformatted in coronal and sagittal planes. Dose reduction technique used: Automatic exposure control and/or adjustment of the mA and/or kV according to patient size and/or use of degenerative reconstruction technique. FINDINGS: URINARY COLLECTING SYSTEM: Renal stones: None. Ureteral stones: None. Bladder stones: None. Solid / enhancing renal mass: Right superior pole renal cyst measures up to 2.1 cm. Additional subcentimeter bilateral renal hypodensities are not definitively cystic, likely due to small size. No definitive solid enhancing mass. Renal enhancement: Symmetric enhancement of the kidneys. Hydronephrosis: None. Hydroureter: None. Renal collecting system: No intraluminal filling defects identified. Ureters: No intraluminal filling defects in the opacified segments of the ureters. Segments of the ureter that are not opacified do not show any wall thickening, suspicion of an enhancing mass, or focal or segmental dilatation. Urinary bladder: No focal or asymmetric bladder wall thickening, focal filling defects, or enhancing polypoid lesions. REMAINING ABDOMEN AND PELVIS: Lower Chest: Punctate right coronary artery calcification. Liver: Unremarkable. Bile Ducts: Unremarkable. Gallbladder: Masslike gallbladder fundal thickening measures up to 1.5 cm. Pancreas: Unremarkable. Spleen: Unremarkable. Adrenal Glands: Unremarkable. GI Tract: Unremarkable. Visualized appendix is unremarkable. Peritoneal Cavity: No free fluid or free air. Prostate and Seminal Vesicles: Left prostate calcification. Lymph Nodes: No lymphadenopathy. Major Vascular Structures: Vascular calcifications are present at the aorta and iliac vessels; no aneurysmal dilation. Soft Tissues: There is a 2.0 cm soft tissue density at the anterior left pelvis near the inguinal canal. Musculoskeletal: Unremarkable. IMPRESSION: 1. No cause for hematuria. No urolithiasis, renal mass, urinary tract dilation, or uroepithelial mass in the kidneys, ureters, or urinary bladder. Recommend follow-up with urology 2. Bilateral subcentimeter renal hypodensities are indeterminant due to small, subcentimeter size. 3. Masslike thickening of the gallbladder fundus suggestive of benign etiology such as adenomyomatosis. Gallbladder malignancy is considered less likely but not excluded on CT. Recommend further evaluation with dedicated right upper quadrant ultrasound. 4. Soft tissue density in the anterior left pelvis. Recommend for correlation with patient history such as prior left inguinal hernia repair with mesh. 5. RCA coronary artery calcification. Electronically authenticated by: KRISTOFER ALLEN Date: 2022-03-02 14:33 Normal [facility] Urine Cytology ( Labs)on 0 03-02-2022 Urine Cytology Diagnosis Info Invalid Interpretation Code [facility] Comment on above: Result Comment: A:Ur ine,Urine:Voided Interpretation - MicroScopic Description - Adequacy - Gross Description Site ID:A color Yellow fixative Alcohol Specimen designated Urine received in alcohol preservative and labeled with the patient?s name, consists of 110ml clear yellow fluid. One non-rv mechanic cytology slide prepared. Electronically signed by : on: 03/02/2022 13:28:25 Performed By: #### 1 [id number] ####[facility] [address] [place] [address] Formson 02-26-2022 Forms [id number] 7#1.00CD:127 Normal [facility] Physician Referralon 022 Physician Referral [id number] 6#[id number]:127 Normal [facility] Screenson 02-26-2022 Screens [id number] #1.00CD:127 Normal [facility] Urology Office/Clinic Noteon 02-26-2022 Urology Office/Clinic Note Chief Complaint Referred for microscopic hematuria HPI Staff Serg is here today as a new patient referred on Jan 27 2022 for asymptomatic microscopic hematuria, Pt saw PCP for a medicare annual check up on 01/12/22 , Previous urinalysis w microscopy on 01/07/21 showed moderate blood, urinalysis done on 01/21/21 showed small blood then on 01/21/22 still showed small blood. Previous PSA done on 01/07/21 was 0.13. Current PSA done on 01/21/22 was 0.13. Pt had IVP done in 1989. Pt could not give UA sample. Dysuria: _Denies Incomplete bladder emptying: _Denies Hematuria: _Denies Frequency: _Denies Urgency: _Denies Nocturia: _1 time a night due to water intake Stream: _Denies Leaking: _Denies Post void dripping: _Denies Wearing pads/ Depends: _Denies Urge incontinence: _Denies Stress incontinence: _Denies Incontinence without Sensory Awareness: _Denies Abdominal pain: _Denies Flank pain: _Denies Sexual complaints: _ History of Present Illness Tests Reviewed: Reviewed UA, external records and labs from PCP, new pt paperwork I have reviewed and verified the staff HPI to be accurate for this encounter. There have been no associated fever, chills, flank pain, or blood in the urine. Denies any urinary infections since last encounter. Review of Systems PHQ Score Initial Depression Screen Score: 0 ROS - Provider Constitutional: denies weight loss, denies hot flashes. Eyes: denies eye problems. Gastrointestinal: denies nausea, denies vomiting. Cardiovascular: denies chest pain or angina. Integumentary: no dryness Musculoskeletal: denies musculoskeletal symptoms. ENMT: denies otolaryngeal symptoms. Respiratory: no shortness of breath. Heme/Lymph: denies easy bleeding tendency, denies easy bruising tendency. Psychiatric: no confusion, no anxiety. Genitourinary: see HPI Physical Exam Vitals & Measurements HR: 65(Peripheral) BP: 151/78 HT: 174 cm HT: 174.0 cm WT: 74.0 kg WT: 74.0 kg BMI: 24.44 General Appearance: alert, no distress, well nourished, well developed male. Head: normocephalic . Eyes: normal orbit and globe. ENMT: normal examination of external ears. Chest: symmetric chest rise, respirations non labored. Cardiovascular: regular rate and rhythm. Abdomen: soft, non distended, no tenderness Genitourinary: Flank Pain: none. Bladder: nonpalpable. Prostate: normal prostate, mildly enlarged, smooth, flat, symmetric, no hard nodule observed. Skin: warm, dry, no bruising. Psychiatric: cooperative, affect appropriate for age, normal judgement, euthymic mood. Assessment/Plan 67 yo M with hx of DM2 and Afib s/p cardioversion on ASA and Eliquis presents for new pt evaluation of AMH Hx L IHR with mesh 1. Asymptomatic microscopic hematuria (R31.21: Asymptomatic microscopic hematuria) Pt saw his PCP for a annual check up on 01/12/22. 01/21/22- small, rbc 2-5 01/12/22- small, rbc 2-5 01/07/21- moderate, rbc 2-5 01/21/21- small, rbc 0-2 Pt was not able to give us a urine sample today, just voided. Pt was a former smoker < 20yrs, quit in . Denies gross hematuria. IVP back in for microhematuria- negative No self/family hx of related malignancies Discussed definition, implication and risk factors for microscopic hematuria. 3 reports of minimal microhematuria (RBC 2-5) over past year. Given history of tobacco use and high risk based solely on age per AUA guidelines, recommend proceeding with workup. Both patient and his agree to proceed. -Will order CT urogram, cystoscopy and urine cytology (today) given recurrence. The risks and benefits for cystoscopy have been discussed. The risks include bleeding, infection, and irritation of the bladder and urinary channel, among others. The patient, after being informed of procedural details and after questions have been answered, wishes to proceed. Full informed consent has been obtained. Will order Local anesthesia. 2. Anticoagulated (Z79.01: residential (current) use of anticoagulants) Eliquis and ASA for Afib. Currently rate and rhythm controlled. Elevated risk of periop complications 3. Prostate cancer screening (Z12.5: Encounter for screening for malignant neoplasm of prostate) PSA 01/21/22 -0.13 01/07/21 - 0.13 Followed by PCP. MARYANNE today benign IPSS- 1 no urinary complaints at this time. Cont screening with PCP Follow-up With When Contact Information Milagro Romero MD, URL, URO Additional Instructions: Schedule cysto, review CTU/cytology results Patient Education Hematuria, Adult I, Ruby Cervantes, personally scribed for Dr. Romero on 02/25/2022 08:56:11. . Documentation recorded by the scribe, Ruby Cervantes, accurately reflects the services(s) I performed and decisions made by me. Authenticated by Dr. Romero on 02/25/2022 23:25:29. Problem List/Past Medical History Ongoing No qualifying data Historical No qualifying data Procedure/S (more content not included)... [facility] Comment on above: Result Comment: Elec tronically Signed By: Milagro Romero MD\.br\Date and Time Signed: 02/25/22 23:26 EDT\.br\Electronically Co-Signed By: Ruby Cervantes\.br\Date and Time Co-Signed: 02/25/22 08:56 EDT Ambulatory Visit Summaryon 0 02-25-2022 Ambulatory Visit Summary SERG VELASQUEZ :1955 Visit Date:02/25/2022 Ambulatory Visit Instructions Your Diagnosis Asymptomatic microscopic hematuria Anticoagulated Prostate cancer screening Tests Performed CT Urogram -- Results Pending -- Please visit your patient portal for your results or contact your primary care physician. Your Care Team Attending Physician - Milagro Romero MD Primary Care Physician - DANIELA MENDOZA CNP This Is Your Medications List cephalexin (Keflex 500 mg Cap) Contact prescribing physician if questions or concerns apixaban (Eliquis 5 mg oral tablet) aspirin (aspirin 81 mg oral capsule) atorvastatin (atorvastatin 40 mg Tab) losartan (losartan 50 mg Tab) metformin (metformin 1000 mg oral tablet) metoprolol (Metoprolol tartrate 50 mg Tab) pioglitazone (pioglitazone 30 mg Tab) Procedures Performed Colonoscopy, Hernia. Discharge Vitals Heart Rate (Peripheral) 65 Blood Pressure 151/78 Height 174 cm Height 174.0 cm Weight 74.0 kg Weight 74.0 kg BMI 24.44 What to do next Scheduled Follow-Up Appointments Wednesday 9:30 AM EDT With: Milagro Romero MD Where: [facility] Patient Educationon 02-26-20 Patient Education Urology Hematuria, Adult Hematuria is blood in the urine. Blood may be visible in the urine, or it may be identified with a test. This condition can be caused by infections of the bladder, urethra, kidney, or prostate. Other possible causes include: ? Kidney stones. ? Cancer of the urinary tract. ? Too much calcium in the urine. ? Conditions that are passed from parent to child (inherited conditions). ? Exercise that requires a lot of energy. Infections can usually be treated with medicine, and a kidney stone usually will pass through your urine. If neither of these is the cause of your hematuria, more tests may be needed to identify the cause of your symptoms. It is very important to tell your health care provider about any blood in your urine, even if it is painless or the blood stops without treatment. Blood in the urine, when it happens and then stops and then happens again, can be a symptom of a very serious condition, including cancer. There is no pain in the initial stages of many urinary cancers. Follow these instructions at home: Medicines ? Take yvmb-hgs-xvoutda and prescription medicines only as told by your health care provider. ? If you were prescribed an antibiotic medicine, take it as told by your health care provider. Do not stop taking the antibiotic even if you start to feel better. Eating and drinking ? Drink enough fluid to keep your urine clear or pale yellow. It is recommended that you drink 3?4 quarts (2.8?3.8 L) a day. If you have been diagnosed with an infection, it is recommended that you drink cranberry juice in addition to large amounts of water. ? Avoid caffeine, tea, and carbonated beverages. These tend to irritate the bladder. ? Avoid alcohol because it may irritate the prostate (men). General instructions ? If you have been diagnosed with a kidney stone, follow your health care provider's instructions about straining your urine to catch the stone. ? Empty your bladder often. Avoid holding urine for long periods of time. ? If you are female: ? After a bowel movement, wipe from front to back and use each piece of toilet paper only once. ? Empty your bladder before and after sex. ? Pay attention to any changes in your symptoms. Tell your health care provider about any changes or any new symptoms. ? It is your responsibility to get your test results. Ask your health care provider, or the department performing the test, when your results will be ready. ? Keep all follow-up visits as told by your health care provider. This is important. Contact a health care provider if: ? You develop back pain. ? You have a fever. ? You have nausea or vomiting. ? Your symptoms do not improve after 3 days. ? Your symptoms get worse. Get help right away if: ? You develop severe vomiting and are unable take medicine without vomiting. ? You develop severe pain in your back or abdomen even though you are taking medicine. ? You pass a large amount of blood in your urine. ? You pass blood clots in your urine. ? You feel very weak or like you might faint. ? You faint. Summary ? Hematuria is blood in the urine. It has many possible causes. ? It is very important that you tell your health care provider about any blood in your urine, even if it is painless or the blood stops without treatment. ? Take rnhd-mvr-qxdllzl and prescription medicines only as told by your health care provider. ? Drink enough fluid to keep your urine clear or pale yellow. This information is not intended to replace advice given to you by your health care provider. Make sure you discuss any questions you have with your health care provider. Document Released: 08/30/2006 Document Revised: 01/24/2020 Document Reviewed: 10/02/2017 [employer] Patient Education ? 2019 [employer] Normal [facility] Urine Cytology ([facility])on 0 02-25-2022 Method of Extraction Voided Normal [facility] Comment on above: Performed By: #### 1 [id number] ####[facility] [address] [place] [address] Number of Jars 1 Invalid Interpretation Code [facility] Comment on above: Performed By: #### 1 [id number] ####[facility] [address] [place] [address] Specimen Clean Catch Normal [facility] Comment on above: Performed By: #### 1 [id number] ####[facility] [address] [place] [address] Type of Service Technical Only Normal [facility] Comment on above: Performed By: #### 1 [id number] ####[facility] [address] [place] [address] XR KUB 1 VIEWon 02-10-2022 XR KUB 1 VIEW EXAMINATION: XR KUB 1 VIEW HISTORY: Microscopic hematuria COMPARISON: No relevant comparison available. FINDINGS: KIDNEY/URETER - RIGHT: No visible renal or ureteral calcifications. KIDNEY/URETER - LEFT: No visible renal or ureteral calcifications. PELVIS: No visible ureteral calcifications. Any visible calcifications favor phleboliths. BOWEL: No abnormal dilation or deviation. BONES: No acute abnormality. OTHER: Negative. No abnormal gaseous collections. IMPRESSION: No urinary tract calculi Electronically authenticated by: ENID LONGORIA Date: 2022-02-10 08:00 Normal [facility] CBC AUTO DIFFon 01-21-2022 BASO # 0.1 103/ul Normal 0.0-0.1 [facility] Comment on above: Performed By: #### C BC #### [facility] [address] [place] [address] Dr. Fern Caballero Basophils/100 WBC (Bld) 1.0 % Normal 0.2-2.0 [facility] Comment on above: Performed By: #### C BC #### [facility] [address] [place] [address] Dr. Fern Caballero EO # 0.2 103/ul Normal 0.0-0.7 [facility] Comment on above: Performed By: #### C BC #### [facility] [address] [place] [address] Dr. Fern Caballero Eosinophils/100 WBC (Bld) 3.0 % Normal 0.9-7.0 [facility] Comment on above: Performed By: #### C BC #### [facility] [address] [place] [address] Dr. Fern Caballero Erythrocyte distribution width (RBC) [Ratio] 12.7 % Normal 11.0-15.0 [facility] Comment on above: Performed By: #### C BC #### [facility] [address] [place] [address] Dr. Fern Caballero Hematocrit (Bld) [Volume fraction] 45.2 % Normal 42.0-54.0 [facility] Comment on above: Performed By: #### C BC #### [facility] [address] [place] [address] Dr. Fern Caballero Hemoglobin (Bld) [Mass/Vol] 15.0 g/dL Normal 14.0-18.0 [facility] Comment on above: Performed By: #### C BC #### [facility] [address] [place] [address] Dr. Fern Caballero IG # 0.03 10e3/ul Normal 0.00-0.03 [facility] Comment on above: Performed By: #### C BC #### [facility] [address] [place] [address] Dr. Fern Caballero IG % 0.4 % Normal 0.0-0.5 [facility] Comment on above: Performed By: #### C BC #### [facility] [address] [place] [address] Dr. Fern Caballero LYMPH # 2.4 103/ul Normal 1.2-3.8 [facility] Comment on above: Performed By: #### C BC #### [facility] [address] [place] [address] Dr. Fern Caballero Lymphocytes/100 WBC (Bld) 30.7 % Normal 20.5-60.0 [facility] Comment on above: Performed By: #### C BC #### [facility] [address] [place] [address] Dr. Fern Caballero MANUAL DIFF REQ NO Normal [facility] Comment on above: Performed By: #### C BC #### [facility] [address] [place] [address] Dr. Fern Caballero MCH (RBC) [Entitic mass] 30.7 pg Normal 25.9-34.0 [facility] Comment on above: Performed By: #### C BC #### [facility] [address] [place] [address] Dr. Fern Caballero MCHC (RBC) [Mass/Vol] 33.2 g/dL Normal 29.9-35.2 [facility] Comment on above: Performed By: #### C BC #### [facility] [address] [place] [address] Dr. Fern Caballero MCV (RBC) [Entitic vol] 92.4 fL Normal 80.0-94.0 [facility] Comment on above: Performed By: #### C BC #### [facility] [address] [place] [address] Dr. Fern Caballero MONO # 0.9 103/ul Critically high 0.3-0.8 [facility] Comment on above: Performed By: #### C BC #### [facility] [address] [place] [address] Dr. Fern Caballero Monocytes/100 WBC (Bld) 10.8 % Normal 1.7-12.0 [facility] Comment on above: Performed By: #### C BC #### [facility] [address] [place] [address] Dr. Fern Caballero NEUT # 4.3 103/ul Normal 1.4-6.5 [facility] Comment on above: Performed By: #### C BC #### [facility] [address] [place] [address] Dr. Fern Caballero Neutrophils/100 WBC (Bld) 54.1 % Normal 43.0-75.0 [facility] Comment on above: Performed By: #### C BC #### [facility] [address] [place] [address] Dr. Fern Caballero Platelet mean volume (Bld) [Entitic vol] 10.3 fL Normal 9.5-13.5 [facility] Comment on above: Performed By: #### C BC #### [facility] [address] [place] [address] Dr. Fern Caballero PLT 286 103/ul Normal 150-450 [facility] Comment on above: Performed By: #### C BC #### [facility] [address] [place], [place] [id number] Dr. Fern Caballero RBC 4.89 106/ul Normal 4.70-6.10 [facility] Comment on above: Performed By: #### C BC #### [facility] [address] [place] [address] Dr. Fern Caballero WBC 7.9 103/ul Normal 4.0-11.0 [facility] Comment on above: Performed By: #### C BC #### [facility] [address] [address] [address] Fern Caballero GLYCOHEMOGLOBIN A1Con 2021 ADA RECOMMENDATION SEE BELOW Normal [facility] [place] Comment on above: Result Comment: ADA RECOMMENDED LIMIT 4.0 - 6.0 ADA THERAPEUTIC TARGET < 7.0 ACTION SUGGESTED > 7.0 Performed By: #### A 1C ####[facility] [id number] [address]Dr. Fern Caballero Glucose [Mass/Vol] 171 mg/dL Normal [facility] Comment on above: Performed By: #### A 1C ####[facility] [id number] [address]Dr. Fern Caballero HbA1c (Bld) [Mass fraction] 7.6 % Critically high 4.5-6.2 [facility] Comment on above: Performed By: #### A 1C ####[facility] [id number] [address]Dr. Fern Caballero LIPID PROFILEon 01-21-2022 CHOL-HDL RATIO NORM SEE BELOW Normal [facility] Comment on above: Result Comment: 3.3 - 4.4 LOW RISK 4.4 - 7.1 AVERAGE RISK 7.1 - 11.0 MODERATE RISK >11.0 HIGH RISK Performed By: #### C MP, LIPID #### [facility] [address] [address] [address] Fern Caballero Cholesterol [Mass/Vol] 122 mg/dL Normal <=200 [facility] Comment on above: Performed By: #### C MP, LIPID #### [facility] [address] [address] [address] Fern Caballero Cholesterol in HDL [Mass/Vol] 36 mg/dL Critically low 40-60 [facility] Comment on above: Performed By: #### C MP, LIPID #### [facility] [address] [address] [address] Fern Caballero Cholesterol in LDL [Mass/Vol] 56.4 mg/dL Normal [facility] Comment on above: Performed By: #### C MP, LIPID #### [facility] [address] [place] [address] Dr. Fern Caballero Cholesterol.total/Ch olesterol in HDL [Mass ratio] 3.4 {ratio} Normal [facility] Comment on above: Performed By: #### C MP, LIPID #### [facility] [address] [place] [address] Dr. Fern Caballero HDL NORMAL > or = 60 mg/dl - LOW CARDIOVASCULAR RISK <40 mg/dl - HIGH CARDIOVASCULAR RISK Normal [facility] Comment on above: Performed By: #### C MP, LIPID #### [facility] [address] [place] [address] Dr. Fern Caballero LDL CALC NORMAL SEE BELOW Normal [facility] Comment on above: Result Comment: <100 mg/dl OPTIMAL 100 - 129 mg/dl NEAR OR ABOVE OPTIMAL 130 - 159 mg/dl BORDERLINE HIGH 160 - 189 mg/dl HIGH >190 mg/dl VERY HIGH Performed By: #### C MP, LIPID #### [facility] [address] [place] [address] Dr. Fern Caballero Triglyceride [Mass/Vol] 148 mg/dL Normal <=150 [facility] Comment on above: Performed By: #### C MP, LIPID #### [facility] [address] [place] [address] Dr. Fern Caballero VLDL CALC 29.6 mg/dL Normal [facility] Comment on above: Performed By: #### C MP, LIPID #### [facility] [address] [place] [address] Dr. Fern Caballero MICROALBUMIN, RAND URon 01-11 mALB 3.2 mg/L Normal <=30.0 [facility] Comment on above: Performed By: #### M ALBR #### [facility] [address] [place] [address] Dr. Fern Caballero PROF 14(COMP METB)on 022 Albumin [Mass/Vol] 4.1 g/dL Normal 3.4-5.[address] [facility] Comment on above: Performed By: #### C MP, LIPID #### [facility] [address] [place] [address] Dr. Fern Caballero Albumin/Globulin [Mass ratio] 1.3 {ratio} Normal [facility] Comment on above: Performed By: #### C MP, LIPID #### [facility] [address] [address] [address] Fern Caballero ALP [Catalytic activity/Vol] 81 U/L Normal 46-116 [facility] Comment on above: Performed By: #### C MP, LIPID #### [facility] [address] [place] [address] Dr. Fern Caballero ALT [Catalytic activity/Vol] 43 U/L Normal 16-63 [facility] Comment on above: Performed By: #### C MP, LIPID #### [facility] [address] [place] [address] Dr. Fern Caballero Anion gap [Moles/Vol] 10.5 mmol/L Normal [facility] Comment on above: Performed By: #### C MP, LIPID #### [facility] [address] [place] [address] Dr. Fern Caballero AST [Catalytic activity/Vol] 20 U/L Normal 15-37 [facility] Comment on above: Performed By: #### C MP, LIPID #### [facility] [address] [place] [address] Dr. Fern Caballero Bilirubin [Mass/Vol] 0.7 mg/dL Normal 0.2-1.0 [facility] Comment on above: Performed By: #### C MP, LIPID #### [facility] [address] [place] [address] Dr. Fern Caballero Calcium [Mass/Vol] 9.5 mg/dL Normal 8.5-10.[address] [facility] Comment on above: Performed By: #### C MP, LIPID #### [facility] [address] [place] [address] Dr. Fern Caballero Chloride [Moles/Vol] 101 mmol/L Normal 98-107 [facility] Comment on above: Performed By: #### C MP, LIPID #### [facility] [address] [place], [place] [id number] Dr. Fern Caballero CO2 [Moles/Vol] 27.9 mmol/L Normal 21.0-32.0 [facility] Comment on above: Performed By: #### C MP, LIPID #### [facility] [address] [place] [address] Dr. Fern Caballero Creatinine [Mass/Vol] 1.19 mg/dL Normal 0.70-1.30 [facility] Comment on above: Performed By: #### C MP, LIPID #### [facility] [address] [place] [address] Dr. Fern Caballero EGFR-AF ISRAELI >60 Normal >=60 [facility] Comment on above: Performed By: #### C MP, LIPID #### [facility] [address] [place] [address] Dr. Fern Caballero EGFR-NON AF ISRAELI >60 Normal >=60 [facility] Comment on above: Performed By: #### C MP, LIPID #### [facility] [address] [place] [address] Dr. Fern Caballero Globulin (S) [Mass/Vol] 3.2 g/dL Normal [facility] Comment on above: Performed By: #### C MP, LIPID #### [facility] [address] [place] [address] Dr. Fern Caballero Glucose [Mass/Vol] 175 mg/dL Critically high 74-106 [facility] Comment on above: Performed By: #### C MP, LIPID #### [facility] [address] [place] [address] Dr. Fern Caballero Potassium [Moles/Vol] 4.4 mmol/L Normal 3.5-5.1 [facility] Comment on above: Performed By: #### C MP, LIPID #### [facility] [address] [place] [address] Dr. Fern Caballero Protein [Mass/Vol] 7.3 g/dL Normal 6.4-8.2 [facility] [place] Comment on above: Performed By: #### C MP, LIPID #### [facility] [address] [place] [address] Dr. Fern Caballero Sodium [Moles/Vol] 135 mmol/L Critically low 136-145 [facility] Comment on above: Performed By: #### C MP, LIPID #### [facility] [address] [place] [address] Dr. Fern Caballero Urea nitrogen [Mass/Vol] 18.0 mg/dL Normal 7.0-18.0 [facility] Comment on above: Performed By: #### C MP, LIPID #### [facility] [address] [place] [address] Dr. Fern Caballero Urea nitrogen/Creatinine [Mass ratio] 15.1 mg/mg Normal [facility] Comment on above: Performed By: #### C MP, LIPID #### [facility] [address] [place] [address] Dr. Fern Caballero UA RANDOM W/MICROSCOPICon BACTERIA NONE SEEN Normal NONE SEEN [facility] Comment on above: Performed By: #### U AMIC #### [facility] [address] [place] [address] Dr. Fern Caballero Bilirubin Ql (U) Negative Normal NEGATIVE [facility] Comment on above: Performed By: #### U AMIC #### [facility] [address] [place] [address] Dr. Fern Caballero CAST NONE SEEN Normal NONE SEEN [facility] Comment on above: Performed By: #### U AMIC #### [facility] [address] [place] [address] Dr. Fern Caballero Clarity (U) CLEAR Normal CLEAR [facility] Comment on above: Performed By: #### U AMIC #### [facility] [address] [place] [address] Dr. Fern Caballero Color (U) LT. YELLOW Normal YELLOW [facility] Comment on above: Performed By: #### U AMIC #### [facility] [address] [place] [address] Dr. Fern Caballero Crystals LM Nom (Urine sed) NONE SEEN Normal NONE SEEN [facility] Comment on above: Performed By: #### U AMIC #### [facility] [address] [address] [address] Fern Caballero Epithelial cells LM Ql (Urine sed) RARE Normal NONE SEEN /RARE [facility] Comment on above: Performed By: #### U AMIC #### [facility] [address] [place] [address] Dr. Fern Caballero Glucose Ql (U) Negative Normal NEGATIVE [facility] Comment on above: Performed By: #### U AMIC #### [facility] [address] [address] [address] Fern Caballero Hemoglobin Ql (U) SMALL Abnormal NEGATIVE [facility] Comment on above: Performed By: #### U AMIC #### [facility] [address] [place] [address] Dr. Fern Caballero Ketones Ql (U) Negative Normal NEGATIVE [facility] Comment on above: Performed By: #### U AMIC #### [facility] [address] [place] [address] Dr. Fern Caballero LEUKOCYTES Negative Normal NEGATIVE [facility] Comment on above: Performed By: #### U AMIC #### [facility] [address] [address] [address] Fern Caballero MUCOUS NONE SEEN Normal NONE SEEN [facility] Comment on above: Performed By: #### U AMIC #### [facility] [address] [place] [address] Dr. Fern Caballero Nitrite Ql (U) Negative Normal NEGATIVE [facility] Comment on above: Performed By: #### U AMIC #### [facility] [address] [place] [address] Dr. Fern Caballero pH (U) 5.5 [pH] Normal 5-9 [facility] Comment on above: Performed By: #### U AMIC #### [facility] [address] [place] [address] Dr. Fern Caballero RBC 2-5 Abnormal 0-2 [facility] Comment on above: Performed By: #### U AMIC #### [facility] [address] [place] [address] Dr. Fren Caballero SPEC GRAVITY >=1.030 Abnormal 1.005-<=1.025 [facility] Comment on above: Performed By: #### U AMIC #### [facility] [address] [address] [address] Fern Caballero UA PROTEIN Negative Normal NEGATIVE/ TRACE [facility] Comment on above: Performed By: #### U AMIC #### [facility] [address] [id number] Fern Caballero Urobilinogen Qn (U) 0.2 {Prudencio'U}/dL Normal 0.2 - 1. 0 [facility] Comment on above: Performed By: #### U AMIC #### [facility] [address] [address] [address] Fern Caballero WBC NONE SEEN Normal NONE SEEN [facility] Comment on above: Performed By: #### U AMIC #### [facility] [id number] Fern Caballero VITAMIN D 25 OHon 01-21-2022 VIT D 25-OH 34.0 ng/mL Normal [facility] Comment on above: Performed By: #### V LANE PSASC ####[facility] [address] [id number] Fern Caballero VIT D RANGES SEE BELOW Normal [facility] Comment on above: Result Comment: <20 ng/mL Vit D deficient 20 - <30 ng/mL Vit D insufficient 30 - 100 ng/mL Vit D sufficient >100 ng/mL Potential Toxicity Performed By: #### V LANE PSASC ####[facility] [address] [id number] Fern Caballero Cardiovascular Lab Reporton 01-18-2021 Cardiovascular Lab Report [facility] MR #: [id number] Department of Physician: Sanam So M.D. Division of Service Date: 01/17/2021 Cardiology Birthdate: 1955 Adult Cardiovascular Room #: [address] [address] Cardiovascular Laboratory Report PROCEDURE: Synchronized cardioversion for atrial fibrillation. INDICATION: Atrial fibrillation with rapid ventricular rate. CLINICAL PRESENTATION: The patient is a 66-year-old male with history of paroxysmal atrial fibrillation, hypertension, type 2 diabetes, hyperlipidemia. He has a history of atrial fibrillation, had a prior cardioversion in 2016. He recently had fatigue and palpitations and was found to be back in atrial fibrillation. He had a Holter monitor, which showed episodes of atrial fibrillation with rapid ventricular rate. He is referred for a cardioversion procedure. FINAL IMPRESSION: Successful cardioversion at 360 joules biphasic. PLAN: 1. Continue current medical therapy. The patient is already on Eliquis anticoagulation 5 mg twice daily. If he has a further recurrence of atrial fibrillation, then discuss atrial fibrillation with electrophysiology. 2. Outpatient followup with Cardiology. PROCEDURE TECHNIQUE: The patient was brought to the catheterization lab in a fasting state. Informed written consent was obtained. He was given conscious sedation with a total of Versed 4 mg and fentanyl 100 mcg. First, I tried a synchronized cardioversion at 150 joules. This was unsuccessful. Then, we repeated at 360 joules biphasic and this was successfully converted to normal sinus rhythm. He tolerated the procedure well. There were no apparent complications. The patient was already on Eliquis anticoagulation, so transesophageal echocardiogram was not needed. Electronically Signed by: Candido Blood M.D. 01/20/2021 05:00 P Candido Blood M.D. Date Dict: 01/17/2021/12:37 P/Candido Blood M.D. Date Trans: 01/18/2021 03:02 A/christine [id number] cc: Daniela Mendoza N.P. [facility] [address] [address] Elayne Infante, BARIATRIC PHYSICIAN [address] [facility] [address] [place] [address] [facility] Vital Signs Date Time Vital Sign Value Performing Clinician Hallie garrison 03-03-2022 09:12-0400 Blood Pressure Location Milagro Lue [facility] [place] 03-03-2022 09:12-0400 Diastolic blood pressure 81 mm[Hg] Milagro Lue [facility] [place] 03-03-2022 09:12-0400 Heart rate 75 /min Milagro Lue [facility] [place] 03-03-2022 09:12-0400 Systolic blood pressure 126 mm[Hg] Milagro Lue [facility] [place] 02-25-2022 08:26-0400 Blood Pressure Location [facility] [place] 02-25-2022 08:26-0400 Diastolic blood pressure 78 mm[Hg] Milagro Lue [facility] [place] 02-25-2022 08:26-0400 Heart rate 65 /min [facility] 02-25-2022 08:26-0400 Systolic blood pressure 151 mm[Hg] Milagro Lue [facility] Encounters Encounter Date Encounter Type Care Provider Facility Start: 07-25-2024 End: 07-25-2024 ambulatory DANIELA MENDOZA Not Available Start: 07-05-2024 End: 07-05-2024 Refill Daniela Mendoza [employer]GER Work Phone: [facility] Comment on above: Chronic atrial fibri llation (HCC) ([facility]/HCC); Type 2 diabetes mellitus without complication, without long-term current use of insulin (CMS/HCC); Mixed hyperlipidemia (CMS/HCC); Benign essential hypertension (CMS/HCC) Start: 01-25-2024 Patient encounter procedure Daniela Phylliscelinadontrell SENIOR LEAD PROJECT MANAGER Work Phone: [facility] Start: 01-25-2024 End: 01-25-2024 ambulatory DANIELA AICHHOLZ Not Available Start: 09-29-2023 End: 09-29-2023 ambulatory [facility] Start: 07-15-2022 End: 07-16-2022 ambulatory BARIATRIC PHYSICIAN DANIELA AICHHOLZ Facility:[facility] Start: 04-02-2022 End: 04-03-[address] ELIZABETH CROW Facility:[facility] Start: 03-23-2022 End: 03-24-2022 ambulatory BARIATRIC PHYSICIAN DANIELA PHYLLISHDONTRELL Facility:[facility] Start: 03-03-2022 End: 03-03-2022 Patient encounter procedure Milagro Romero [facility] [employer] Start: 03-02-2022 End: 03-03-2022 ambulatory MILAGRO ROMERO . Facility:[facility] Start: 02-25-2022 End: 02-25-2022 Patient encounter procedure Milagro Romero [facility] [place] Start: 02-10-2022 End: 02-11-2022 ambulatory BARIATRIC PHYSICIAN DANIELA AICHHOLZ Facility:[facility] Start: 01-21-2022 End: 01-22-2022 ambulatory BARIATRIC PHYSICIAN DANIELA AICHHOLZ Facility:[facility] Start: 01-17-2021 End: 01-18-2021 ambulatory CANDIDO BLOOD Facility:[facility] Procedures Date Procedure Procedure Detail Performing Clinician Start: 01-21-[address] DOUGIE CROW Comment on above: Performed By: #### V ITAD, PSASC ####[facility] [address] [place], [place] [address]Zf. Fern Caballero Start: 04-17-2015 Colonoscopy Daniela montiel [employer]AD PROJECT MANAGER Work Phone: Colonoscopy Milagro Nick Hernia of abdominal cavity (disorder) Milagro Romero Plan of Treatment Date Care Activity Detail Author Start: 04-17-2025 Screening for malign ant neoplasm of colon [facility] Start: 07-25-2024 End: 07-25-2024 Patient encounter procedure 07/25/2024 8:40 AM EST Office Visit [facility] [address] [place] [phone] Daniela Menodza NP [address] [place] [phone] [facility] Start: 05-14-2024 Influenza vaccination Influenza Vacc ine (#1) [facility] Start: 1955 Screening for malign ant neoplasm of colon [facility] Immunizations Immunization Date Immunization Notes Care Provider Fa cility 07-21-2023 Influenza, High-dose Seasonal, Quadrivalent, Preservative Free Daniela Mendoza [employer] PRO[employer] MANAGER Work Phone: [facility] 07-21-2023 influenza virus vacc ine, unspecified formulation Daniela Mendoza [employer]ENIOR LEAD PROJECT MANAGER Work Phone: [facility] 01-21-2023 zoster vaccine recombinant Daniela Reji [employer]IOR LEAD PROJECT MANAGER Work Phone: [facility] 10-22-2022 Pneumococcal Conjuga te PCV 20 Daniela Mendoza [employer]ENIOR LEAD PROJECT MANAGER Work Phone: [facility] 10-22-2022 zoster vaccine recombinant Daniela Drewz SENIOR LEAD PROJECT MANAGER Work Phone: [facility] 07-28-2021 SARS-CoV-2 mRNA (tozinameran 5y-11y) vaccine Milagro Padillaminerva [facility] 11-20-2020 SARS-CoV-2 mRNA (tozinameran 5y-11y) vaccine Milagro Romero [facility] 07-11-2015 influenza, seasonal, injectable, preservative free Daniela Aichholz [employer]IOR LEAD PROJECT MANAGER Work Phone: [facility] 06-18-2015 influenza, seasonal, injectable Daniela Aichholz SENIOR LEAD PROJECT MANAGER Work Phone: [facility] 06-05-2014 influenza, seasonal, injectable, preservative free Daniela Aichholz [employer]ENIOR LEAD PROJECT MANAGER Work Phone: [facility] 06-05-2014 pneumococcal polysaccharide vaccine, 23 valent Daniela Aichholz SENIOR LEAD PROJECT MANAGER Work Phone: [facility] 06-27-2013 influenza, seasonal, injectable, preservative free Daniela Aichholz SENIOR LEAD PROJECT MANAGER Work Phone: [facility] 09-09-2012 seasonal influenza, intradermal, preservative free Daniela Aichholz SENIOR LEAD PROJECT MANAGER Work Phone: [facility] 07-14-2011 influenza virus vacc ine, whole virus Daniela Aichholz SENIOR LEAD PROJECT MANAGER Work Phone: [facility] 09-13-2005 tetanus and diphther ia toxoids, adsorbed, preservative free, for adult use (5 Lf of tetanus toxoid and 2 Lf of diphtheria toxoid) Daniela Aichholz SENIOR LEAD PROJECT MANAGER Work Phone: [facility] 09-13-2005 tetanus toxoid, redu brittany diphtheria toxoid, and acellular pertussis vaccine, adsorbed Daniela Aichholz SENIOR LEAD PROJECT MANAGER Work Phone: [facility] Payers Date Payer Category Payer Medicare MEDICARE [id number] 2019 Unknown [id number] 1957 Medicare [id number] 1957 Private Health Insurance [facility] [id number] 1955 Unknown [id number] 1955 Unknown [id number] 1955 Unknown [id number] 1955 Unknown [id number] 1955 Unknown [id number] 1955 Unknown [id number] 1955 Unknown [id number] 1955 Unknown [id number] 1955 Unknown [id number] Social History Date Type Detail Facility Start: 02-25-2022 End: 01-25-2024 Tobacco smoking status Ex-smoker (finding) [facility] Start: 01-25-2024 Sex Assigned At Male [facility] End: 09-13-1989 History of tobacco use Current smoker [facility] End: 09-13-1989 History of tobacco use Cigarette Smoker [facility] Start: 01-25-2024 Tobacco use and exposure Smokeless tobacco non-user [facility] Start: 01-25-2024 Alcoholic beverage intake Lifetime non-drinker (finding) [facility] Start: 01-25-2024 History of Social function [facility] Start: 1955 Sex assigned at Not on file [facility] NEGATED: Highlighted rowStart: NINF History of tobacco use Passive smoker [facility] Functional Status Date Assessment Result Facility 03-03-2022 Functional Status N/A [facility] [place] 02-25-2022 Functional Status N/A [facility] Progress note 09-29-2023 Note Date & Type Note Facility 09-29-2023 Note [id number]= 3- HTN , DM, Age Continue eliquis anticoagulation, denied bleeding tendencies Continue lopressor 50 mg bid- currently EKG shows in rhythm- Sinus bradycardia [facility] Progress note 09-29-2023 Note Date & Type Note Facility 09-29-2023 Note Continue lipitor 40 mg Script for annual labs provided [facility] Progress note 09-29-2023 Note Date & Type Note Facility 09-29-2023 Note Hypertension is well controlled Continue losartan, metoprolol [facility] Progress note 09-29-2023 Note Date & Type Note Facility 09-29-2023 Note [facility] PROGR ESS NOTE HPI: Serg Velasquez is a 68 y.o. male here for f/U paroxysmal a fib, HTN, HPL HPI 68 y.o. male with a past medical history including a.fib with history of CV 2015 and 01/20/2021, HTN, HLD. Presents to cardiology clinic for routine follow-up. Currently pt is doing very well without concerning symptoms. Remains rather active and walks daily. Denied any activity limiting symptoms. Review of Systems Constitutional: Negative. Respiratory: Negative. Cardiovascular: Negative. Neurological: Negative. All other systems reviewed and are negative. Visit Vitals BP 130/80 (BP Location: Left arm, Patient Position: Sitting, BP Cuff Size: Adult) Pulse 58 Resp 12 Ht 1.727 m (5' 8 ) Wt 77.6 kg (171 lb) SpO2 98% BMI 26.00 kg/m??? Smoking Status Former BSA 1.93 m??? No Known Allergies Medications: Current Outpatient Medications on File Prior to Visit Medication Sig Dispense Refill apixaban (Eliquis) 5 mg tablet Take 1 tablet (5 mg) by mouth in the morning and at bedtime. 60 tablet 11 aspirin 81 mg capsule Take by mouth. atorvastatin (Lipitor) 40 mg tablet Take 40 mg by mouth at bedtime. losartan (Cozaar) 50 mg tablet Take 50 mg by mouth in the morning and at bedtime. metFORMIN (Glucophage) 1,000 mg tablet Take 1,000 mg by mouth with breakfast and with evening meal. metoprolol tartrate (Lopressor) 50 mg tablet Take 50 mg by mouth in the morning and at bedtime. pioglitazone (Actos) 45 mg tablet Take 45 mg by mouth in the morning. No current facility-administered medications on file prior to visit. Physical Exam: Constitutional: Appearance: Normal appearance. Without apparent distress HENT: Head: Normocephalic and atraumatic. Nose: Nose normal. Mouth/Throat: Mouth: Mucous membranes are moist. Eyes: Extraocular Movements: Extraocular movements intact. Conjunctiva/sclera: Conjunctivae normal. Neck: Vascular: No JVD. Cardiovascular: Rate and Rhythm: Normal rate and regular rhythm. Pulses: Dorsalis pedis pulses are 3 on the right side and 3on the left side. Posterior tibial pulses are 3 on the right side and 3 on the left side. Heart sounds: Normal heart sounds, S1 normal and S2 normal. Pulmonary: Effort: Pulmonary effort is normal. Breath sounds: Normal breath sounds. Abdominal: General: Bowel sounds are normal. Palpations: Abdomen is soft. Musculoskeletal: General: Normal range of motion. Cervical back: Normal range of motion. Right lower leg: No edema. Left lower leg: No edema. Skin: General: Skin is warm and dry. Capillary Refill: Capillary refill takes less than 2 seconds. Neurological: General: No focal deficit present. Mental Status: he is alert and oriented to person, place, and time. Psychiatric: Mood and Affect: Mood normal. Behavior: Behavior normal. Thought Content: Thought content normal. Judgment: Judgment normal. Labs: 02/16/23 CBC normal BUN 19, CR 1.25- normal GFR 58 A1C- 7.6 elevated Liver function normal Last lab values have been reviewed CV Testing: EKG today- sinus bradycardia- 50 bpm NM stress test 01/29/2021: no ischemia ABIs 01/08/21: normal to B/L lower extremities ECHO 12/18/19: EF 60-65%, abnormal septum movement consistent with RV volume and/or pressure overload, normal RV function with moderately enlarged RV, normal right sided pressures, LA mildly enlarged, mild MR, mild to mod TR ECHO 05/2016 Global left ventricular systolic function is normal (Visually estimated EF 60-65%). Normal right ventricular systolic function. The right ventricle is mildly enlarged. Mild tricuspid regurgitation. Doppler studies suggest normal right sided pressures. Atria are normal in size. No echocardiogram results found for the past 12 months Assessment/Plan: Primary hypertension Hypertension is well controlled Continue losartan, metoprolol Mixed hyperlipidemia Continue lipitor 40 mg Script for annual labs provided Atrial fibrillation (CMS/[facility]) [id number]= 3- HTN, DM, Age Continue eliquis anticoagulation, denied bleeding tendencies Continue lopressor 50 mg bid- currently EKG shows in rhythm- Sinus bradycardia RTC 6months to [address] Mims- EP [facility] Hospital Discharge instructions 03-03-2022 Note Date & Type Note Facility 03-03-2022 Hospital Discharg e instructions Patient Education 03/03/2022 09:53:00 Hematuria, Adult Hematuria, Adult Hematuria is blood in the urine. Blood may be visible in the urine, or it may be identified with a test. This condition can be caused by infections of the bladder, urethra, kidney, or prostate. Other possible causes include: Kidney stones. Cancer of the urinary tract. Too much calcium in the urine. Conditions that are passed from parent to child (inherited conditions). Exercise that requires a lot of energy. Infections can usually be treated with medicine, and a kidney stone usually will pass through your urine. If neither of these is the cause of your hematuria, more tests may be needed to identify the cause of your symptoms. It is very important to tell your health care provider about any blood in your urine, even if it is painless or the blood stops without treatment. Blood in the urine, when it happens and then stops and then happens again, can be a symptom of a very serious condition, including cancer. There is no pain in the initial stages of many urinary cancers. Follow these instructions at home: Medicines Take dpgn-ezd-[id number] and prescription medicines only as told by your health care provider. If you were prescribed an antibiotic medicine, take it as told by your health care provider. Do not stop taking the antibiotic even if you start to feel better. Eating and drinking Drink enough fluid to keep your urine clear or pale yellow. It is recommended that you drink 3 4 quarts (2.8 3.8 L) a day. If you have been diagnosed with an infection, it is recommended that you drink cranberry juice in addition to large amounts of water. Avoid caffeine, tea, and carbonated beverages. These tend to irritate the bladder. Avoid alcohol because it may irritate the prostate (men). General instructions If you have been diagnosed with a kidney stone, follow your health care provider's instructions about straining your urine to catch the stone. Empty your bladder often. Avoid holding urine for long periods of time. If you are female: ?After a bowel movement, wipe from front to back and use each piece of toilet paper only once. ?Empty your bladder before and after sex. Pay attention to any changes in your symptoms. Tell your health care provider about any changes or any new symptoms. It is your responsibility to get your test results. Ask your health care provider, or the department performing the test, when your results will be ready. Keep all follow-up visits as told by your health care provider. This is important. Contact a health care provider if: You develop back pain. You have a fever. You have nausea or vomiting. Your symptoms do not improve after 3 days. Your symptoms get worse. Get help right away if: You develop severe vomiting and are unable take medicine without vomiting. You develop severe pain in your back or abdomen even though you are taking medicine. You pass a large amount of blood in your urine. You pass blood clots in your urine. You feel very weak or like you might faint. You faint. Summary Hematuria is blood in the urine. It has many possible causes. It is very important that you tell your health care provider about any blood in your urine, even if it is painless or the blood stops without treatment. Take hbfp-qzp-sktixpv and prescription medicines only as told by your health care provider. Drink enough fluid to keep your urine clear or pale yellow. This information is not intended to replace advice given to you by your health care provider. Make sure you discuss any questions you have with your health care provider. Document Released: 08/30/2006 Document Revised: 01/24/2020 Document Reviewed: 10/02/2017 [employer] Patient Education 2019 [place] Follow Up Care 02/25/2022 09:04:37 With:Nick CHAVES, SHAHRZAD Palacios, URO Address: [address] [place] [address] [phone] When: only if needed [facility] Hospital Discharge instructions 02-25-2022 Note Date & Type Note Facility 02-25-2022 Hospital Discharg e instructions Patient Education 02/25/2022 08:47:16 Hematuria, Adult Hematuria, Adult Hematuria is blood in the urine. Blood may be visible in the urine, or it may be identified with a test. This condition can be caused by infections of the bladder, urethra, kidney, or prostate. Other possible causes include: Kidney stones. Cancer of the urinary tract. Too much calcium in the urine. Conditions that are passed from parent to child (inherited conditions). Exercise that requires a lot of energy. Infections can usually be treated with medicine, and a kidney stone usually will pass through your urine. If neither of these is the cause of your hematuria, more tests may be needed to identify the cause of your symptoms. It is very important to tell your health care provider about any blood in your urine, even if it is painless or the blood stops without treatment. Blood in the urine, when it happens and then stops and then happens again, can be a symptom of a very serious condition, including cancer. There is no pain in the initial stages of many urinary cancers. Follow these instructions at home: Medicines Take kyzj-xij-hbwjnec and prescription medicines only as told by your health care provider. If you were prescribed an antibiotic medicine, take it as told by your health care provider. Do not stop taking the antibiotic even if you start to feel better. Eating and drinking Drink enough fluid to keep your urine clear or pale yellow. It is recommended that you drink 3 4 quarts (2.8 3.8 L) a day. If you have been diagnosed with an infection, it is recommended that you drink cranberry juice in addition to large amounts of water. Avoid caffeine, tea, and carbonated beverages. These tend to irritate the bladder. Avoid alcohol because it may irritate the prostate (men). General instructions If you have been diagnosed with a kidney stone, follow your health care provider's instructions about straining your urine to catch the stone. Empty your bladder often. Avoid holding urine for long periods of time. If you are female: ?After a bowel movement, wipe from front to back and use each piece of toilet paper only once. ?Empty your bladder before and after sex. Pay attention to any changes in your symptoms. Tell your health care provider about any changes or any new symptoms. It is your responsibility to get your test results. Ask your health care provider, or the department performing the test, when your results will be ready. Keep all follow-up visits as told by your health care provider. This is important. Contact a health care provider if: You develop back pain. You have a fever. You have nausea or vomiting. Your symptoms do not improve after 3 days. Your symptoms get worse. Get help right away if: You develop severe vomiting and are unable take medicine without vomiting. You develop severe pain in your back or abdomen even though you are taking medicine. You pass a large amount of blood in your urine. You pass blood clots in your urine. You feel very weak or like you might faint. You faint. Summary Hematuria is blood in the urine. It has many possible causes. It is very important that you tell your health care provider about any blood in your urine, even if it is painless or the blood stops without treatment. Take cyzs-lev-ksbnult and prescription medicines only as told by your health care provider. Drink enough fluid to keep your urine clear or pale yellow. This information is not intended to replace advice given to you by your health care provider. Make sure you discuss any questions you have with your health care provider. Document Released: 08/30/2006 Document Revised: 01/24/2020 Document Reviewed: 10/02/2017 [employer] Patient Education 2020 CDP. Follow Up Care 01/28/2022 12:08:00 With:Nick CHAVES, Milagro M., URL, URO Address: When: Unknown [facility] Evaluation + Plan note Note Date & Type Note Facility Evaluation + Plan note Future Appointments Appointment Date:03/03/2022 09:30:00 AM Scheduled Provider:Milagro Romero MD Location:[facility] Appointment Type:URO Procedure 15 min Diagnostic Tests PendingUrine Cytology ([facility]) 02/25/22 [facility] Evaluation note Note Date & Type Note Facility Evaluation note Diagnosis Encounter for subsequent annual wellness visit (AWV) in Medicare patient- Primary Mixed hyperlipidemia (CMS/HCC) Mixed hyperlipidemia Vitamin D deficiency Type 2 diabetes mellitus without complication, without long-term current use of insulin (CMS/HCC) Gastroesophageal reflux disease without esophagitis Esophageal reflux Chronic atrial fibrillation (HCC) (CMS/HCC) Atrial fibrillation Benign essential hypertension (CMS/HCC) Essential hypertension, benign Screening for prostate cancer Special screening for malignant neoplasm of prostate Chronic atrial fibrillation (HCC) (CMS/HCC) Atrial fibrillation Type 2 diabetes mellitus without complication, without long-term current use of insulin (CMS/HCC) Mixed hyperlipidemia (CMS/HCC) Mixed hyperlipidemia Benign essential hypertension (CMS/HCC) Essential hypertension, benign documented in this encounter [facility] Hospital course Narrative Note Date & Type Note Facility Hospital course Narrative No data available for this section [facility] Progress note Note Date & Type Note Facility Progress note No data available for this section [facility] Summary Purpose Family History No Family History Records FoundNo Family History Records FoundNo Family History Records FoundNo Family History Records FoundNo Family History Records Found Advance Directives No Advanced Directives Records FoundNo Advanced Directives Records FoundNo Advanced Directives Records FoundNo Advanced Directives Records FoundNo Advanced Directives Records Found Additional Source Comments (unrecognized sect ion and content) No Status Records FoundNo Status Records FoundNo Status Records FoundNo Status Records FoundNo Status Records Found INFORMATION SOURCE (unrecogn ized section and content) DATE CREATED AUTHOR 02/08/2021 [facility] DATE CREATED AUTHOR AUTHOR'S ORGANIZ ATION 03/04/2022 [facility] DATE CREATED AUTHOR AUTHOR'S ORGANIZ ATION 07/20/2022 [facility] DATE CREATED AUTHOR AUTHOR'S ORGANIZ ATION 10/03/2023 [facility] DATE CREATED AUTHOR AUTHOR'S ORGANIZ ATION 07/26/2024 [facility] Care Team (unrecognized sect ion and content) Junior Art Director Relationship Specialty Start Date End Date Daniela Mendoza NP [address] [place] [address] Nurse Practitioner Family Medicine 07/19/23 FOR RECORDS PERTAINING TO PATIENTS WHO ARE OR HAVE BEEN ENROLLED IN A CHEMICAL DEPENDENCY/SUBSTANCEABUSE PROGRAM, SOME INFORMATION MAY BE OMITTED. This clinical summary was aggregated from multiple sources. Caution should be exercised in using it in the provision of clinical care. This summary normalizes information from multiple sources, and as a consequence, information in this document may materially change the coding, format and clinical context of patient data. In addition, data may be omitted in some cases. CLINICAL DECISIONS SHOULD BE BASED ON THE PRIMARY CLINICAL RECORDS. [employer] provides no warranty or guarantee of the accuracy or completeness of information in this document.
== END 2024-07-31 07:50 | disposition home or self-care (01) ==
LOC: VC 07:49
PROVIDERS: PCP Nurse Practitioner; Visit Provider Nurse Practitioner
DX: I73.9 Peripheral vascular disease, unspecified (principal)
CPT/HCPCS: 93923

== ENCOUNTER 2025-03-06 06:39 | Outpatient (OUT) | payer MEDICARE, SELFPAY ==
--- OUTSIDE RECORDS SUMMARY | 2025-03-06 06:44 | XMS_ITS | CCD ---
Author Organization [facility] CliniSysd Care Team Providers Care Data Reporting Analyst Name Role Phone CANDIDO BLOOD Admitting Unavailable CANDIDO BLOOD Attending Unavailable AICHHOLZ, DANIELA Primary Care Unavailable AICHHOLZ, DANIELA Referring Unavailable AICHHOLZ, DANIELA J Primary Care Physician DR ELIZABETH CROW Admitting Unavailabl e MIGNON, DR ELIZABETH Justin Attending Unavailabl e AICHHOLZ, HOUSE DESIGNER DANIELA Primary Care Unavailable MIGNON, DR ELIZABETH Justin Consulting UnavailDR ENID Gutierrez V Consulting Unavailable DR PEÑA BRONSON Consulting Unavailable AICHHOLZ, HOUSE DESIGNER DANIELA Admitting Unavailable AICHHOLZ, HOUSE DESIGNER DANIELA Attending Unavailable AICHHOLZ, HOUSE DESIGNER DANIELA Primary Care Unavailable AICHHOLZ, HOUSE DESIGNER DANIELA Consulting Unavailable AICHHOLZ, HOUSE DESIGNER DANIELA Admitting Unavailable AICHHOLZ, HOUSE DESIGNER DANIELA Attending Unavailable AICHHOLZ, HOUSE DESIGNER DANIELA Primary Care Unavailable AICHHOLZ, HOUSE DESIGNER DANIELA Consulting Unavailable AICHHOLZ, HOUSE DESIGNER DANIELA Admitting Unavailable AICHHOLZ, HOUSE DESIGNER DANIELA Attending Unavailable AICHHOLZ, HOUSE DESIGNER DANIELA Primary Care Unavailable DR ENID LONGORIA V Consulting Unavailable AICHHOLZ, HOUSE DESIGNER DANIELA Consulting Unavailable LUE ., MILAGRO M Admitting Unavailable LUE ., MILAGRO M Attending Unavailable AICHHOLZ, HOUSE DESIGNER DANIELA Primary Care Unavailable LUE ., MILAGRO M Consulting Unavailable KRISTOFER ALLEN Consulting Unavailable AICHHOLZ, HOUSE DESIGNER DANIELA Admitting Unavailable AICHHOLZ, HOUSE DESIGNER DANIELA Attending Unavailable AICHHOLZ, HOUSE DESIGNER DANIELA Primary Care Unavailable DR ENID LONGORIA V Consulting Unavailable AICHHOLZ, HOUSE DESIGNER DANIELA Consulting Unavailable LUE ., MILAGRO M Consulting Unavailable Aichholz SUPERVISOR COUNSELING AND GUIDANCE, Daniela Unavailable Jorge CHAVES, Zeeshan Primary Care Provider RASHI GRAFF Attending Unavailable DAVIS MIMS Attending Unavailable DANIELA MENDOZA Attending Unavailable DANIELA MENDOZA Attending Unavailable Medications Current Medications Medication Drug Class(es) Dates Sig (Normalized) Sig (Original) apixaban 5 mg oral tablet (13 sources) Factor Xa Inhibitor Start: 10-13-2023 End: 10-12-2024 take 1 tablet by mouth in the morning apixaban (Eliquis) 5 MG tablet Take 5 mg by mouth in the morning and 5 mg in the evening. 10/13/2023 Active Start: 02-25-2022 Eliquis 5 mg o ral tablet Refills(s) 0 Start Date: 02/25/22 Status: Ordered atorvastatin 40 mg oral tablet (15 sources) HMG-CoA Reductase Inhibitor Start: 04-05-2024 End: 04-02-2025 take 1 tablet by mouth at bedtime atorvastatin (Lipitor) 40 MG tablet Indications: Mixed hyperlipidemia (CMS/HCC) Take 1 tablet (40 mg) by mouth at bedtime 90 tablet 1 01/02/2025 04/02/2025 Active Start: 02-25-2022 atorvastatin 4 0 mg Tab Refills(s) 0 Start Date: 02/25/22 Status: Ordered losartan potassium 100 mg oral tablet (14 sources) Angiotensin 2 Receptor Tita Start: 04-05-2024 End: 10-03-2024 take 1 tablet by mouth once daily losartan (Cozaar) 100 MG tablet Indications: Benign essential hypertension (CMS/HCC) Take 1 tablet (100 mg) by mouth Daily 90 tablet 1 07/05/2024 Active Start: 02-25-2022 losartan 50 mg Tab Refills(s) 0 Start Date: 02/25/22 Status: Ordered metFORMIN hydrochloride 1000 mg oral tablet (15 sources) Biguanide Start: 04-05-2024 End: 01-01-2025 take 1 tablet by mouth in the morning metFORMIN (Glucophage) 1000 MG tablet Indications: Type 2 diabetes mellitus without complication, without long-term current use of insulin Take 1 tablet (1,000 mg) by mouth in the morning and 1 tablet (1,000 mg) in the evening. Take with meals. 180 tablet 1 10/03/2024 Active Start: 02-25-2022 metformin 1000 mg oral tablet Refills(s) 0 Start Date: 02/25/22 Status: Ordered metoprolol tartrate 50 mg oral tablet (15 sources) beta-Adrenergic Tita Start: 04-05-2024 End: 04-02-2025 take 1 tablet by mouth in the morning metoprolol tartrate (Lopressor) 50 MG tablet Indications: Chronic atrial fibrillation (HCC) (CMS/HCC) , Benign essential hypertension (CMS/HCC) Take 1 tablet (50 mg) by mouth in the morning and 1 tablet (50 mg) before bedtime. 180 tablet 1 01/02/2025 04/02/2025 Active Start: 02-25-2022 Metoprolol tar trate 50 mg Tab Refills(s) 0 Start Date: 02/25/22 Status: Ordered pioglitazone 45 mg oral tablet (15 sources) Peroxisome Proliferator Receptor alpha Agonist, Peroxisome Proliferator Receptor gamma Agonist, Thiazolidinedione Start: 01-06-2024 End: 10-03-2024 take 1 tablet by mouth once daily pioglitazone (Actos) 45 MG tablet Indications: Type 2 diabetes mellitus without complication, without long-term current use of insulin Take 1 tablet (45 mg) by mouth Daily 90 tablet 1 07/05/2024 Active Start: 02-25-2022 pioglitazone 3 0 mg Tab Refills(s) 0 Start Date: 02/25/22 Status: Ordered Completed/Discontinued Medications Medication Drug Class(es) Dates Sig (Normalized) Sig (Original) aspirin 81 mg delayed release oral tablet (13 sources) Platelet Aggregation Inhibitor, Nonsteroidal Anti-inflammatory Drug Start: 04-05-2024 End: 01-01-2025 take 1 tablet by mouth once daily aspirin 81 MG EC tablet Indications: Chronic atrial fibrillation (HCC) (CMS/HCC) , Type 2 diabetes mellitus without complication, without long-term current use of insulin (CMS/HCC) Take 1 tablet (81 mg) by mouth Daily 90 tablet 1 07/05/2024 10/03/2024 Discontinued (Reorder) Start: 02-25-2022 take 1 mg by mouth e very four hours aspirin 81 mg oral capsule mg cap(s), Oral, q4hr, Refills(s) 0 Start Date: 02/25/22 Status: Ordered cephalexin 500 mg oral capsule (2 sources) Cephalosporin Antibacterial Start: 02-25-2022 take 1 capsule by mouth once daily Keflex 500 mg Cap 500 mg = 1 cap(s), Oral, q12hr, take 1 cap the evening prior to scheduled procedure, take 2nd capsule the day of scheduled procedure, # 2 cap(s), Refills(s) 0, Pharmacy: [facility] [id number], 174, cm, 02/25/22 8:28:00 EDT, Height/Length Dosing, 74... 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 thrombophilia] Onset: 07-25-2024 07-25-2024 Chronic Diabetes mellitus without complication (20 sources) Type 2 diabetes mellitus without complications; 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: [Type 2 diabetes mellitus without complication] Onset: 01-23-2022 Chronic Disorders of lipid metabolism (17 sources) Mixed hyperlipidemia; 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: [Mixed hyperlipidemia] Onset: 09-29-2023 07-05-2024 Chronic Esophageal disorders (13 sources) Gastroesophageal reflux disease; 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: [Gastro-esophageal reflux disease without esophagitis] Onset: 04-09-2008 01-17-2024 Chronic Essential hypertension (20 sources) Essential (primary) hypertension; 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: [Benign essential hypertension] Onset: 01-21-2022 Chronic Nutritional deficiencies (14 sources) Vitamin D deficiency, unspecified; 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: [Vitamin D deficiency] Onset: 01-23-2022 01-17-2024 Chronic Other aftercare (1 source) Long-term current use of anticoagulant; 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: [jail (current) use of anticoagulants] Onset: 02-25-2022 Episodic Other nutritional; endocrine; and metabolic disorders (11 sources) Hypercalcemia; 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: [Hypercalcemia] Onset: 01-17-2024 01-17-2024 Chronic Other screening for suspected conditions (not mental disorders or infectious disease) (20 sources) Encounter for screening for malignant neoplasm of prostate; 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: [Screening for malignant neoplasm done] Onset: 01-23-2022 Episodic Peripheral and visceral atherosclerosis (11 sources) Peripheral vascular disease; 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: [Peripheral vascular disease, unspecified] Onset: 07-25-2024 4 Chronic Residual codes; unclassified (13 sources) Obstructive sleep apnea syndrome; 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: [Obstructive sleep [...] 03-23-2022 Episodic Genitourinary symptoms and ill-defined conditions (19 sources) Microscopic hematuria; 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: [Asymptomatic microscopic hematuria] Onset: 02-25-2022 Episodic Immunizations and screening for infectious disease (11 sources) Needs influenza immunization; 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: [Encounter for immunization] Onset: 07-25-2024 07-25-2024 Episodic Mood disorders (11 sources) Mood disorders Onset: 01-25-2024 Resolved: 01-30-2025 01-25-2024 Other aftercare (13 sources) Drug therapy finding; 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: [extermination inspector (current) use of anticoagulants] Onset: 01-25-2024 01-25-2024 Episodic Results Test Name Value Interpretation Reference Range Facility HbA1c (Bld) [Mass fraction]o n 01-30-2025 Interpretation and review of laboratory results Abnormal [facility] - Hematology and Cell countson 01-30-2025 HbA1c (Bld) [Mass fraction] 7.8 % [facility] Healthcare Office Visiton 08-29-2024 Follow-up visit [id number] Serg Velasquez 1955 M Date Provider Department Center 08/29/2024 DAVIS BROOKE [facility] Family History Problem Relation Age of Onset Coronary artery disease Mother Hypertension Mother Hyperlipidemia Mother Diabetes Father Family Status - Relation Status Age at Mother Father Level of Service:92943 MA OFFICE/OUTPATIENT NEW MODERATE MDM 45 MINUTES Normal [facility] HbA1c (Bld) [Mass fraction]o n 07-25-2024 Interpretation and review of laboratory results Abnormal [facility] - Hematology and Cell countson 07-25-2024 HbA1c (Bld) [Mass fraction] 8.1 % [facility] Office Visiton 09-29-2023 Follow-up visit [id number] Serg Velasquez T 1955 M Date Provider Department Center 09/29/2023 RASHI BRITO [facility] Family History Problem Relation Age of Onset Coronary artery disease Mother Hypertension Mother Hyperlipidemia Mother Diabetes Father Family Status - Relation Status Age at Mother Father Level of Service:43566 MA OFFICE/OUTPATIENT ESTABLISHED LOW MDM 20 MIN Reason for Visit and Comments: Follow-up [374737] Normal [facility] Orders Onlyon 09-29-2023 Orders Only [id number] Serg Velasquez T 1955 M Date Provider Department Center 09/29/2023 CINDY SALOMON Family History Problem Relation Age of Onset Coronary artery disease Mother Hypertension Mother Hyperlipidemia Mother Diabetes Father Family Status - Relation Status Age at Mother Father Normal [facility] GLYCOHEMOGLOBIN A1Con 2021 ADA RECOMMENDATION SEE BELOW Normal [facility] Comment on above: Result Comment: ADA RECOMMENDED LIMIT 4.0 - 6.0 ADA THERAPEUTIC TARGET < 7.0 ACTION SUGGESTED > 7.0 Performed By: #### A 1C ####[facility] [address] [place] [address]Dr. Fern Caballero Glucose [Mass/Vol] 177 mg/dL Normal [facility] Comment on above: Performed By: #### A 1C ####[facility] [address] [id number]. Fern Caballero HbA1c (Bld) [Mass fraction] 7.8 % Critically high 4.5-6.2 [facility] Comment on above: Performed By: #### A 1C ####[facility] [address] [place] [address]Dr. Fern Caballero MRI ABDOMEN WO W CONon 04-02 [...] ENID LONGORIA Date: 2022-04-02 17:17 Normal [facility] XR FOREIGN BODY EYEon 2021 XR FOREIGN BODY EYE EXAMINATION: XR FOREIGN BODY EYE HISTORY: Foreign body in eye COMPARISON: No relevant comparison available. FINDINGS: ORBITS: Negative for a metallic foreign body. OTHER: Negative. IMPRESSION: 1. No metallic foreign body within the orbits. Electronically authenticated by: PEÑA BRONSON Date: 2022-04-02 07:47 Normal [facility] US SINGLE QUAD RT UPPERon [...] by: ENID LONGORIA Date: 2022-03-23 08:19 Normal [facility] Consent for Procedure/Surger yon 03-04-2022 Consent for Procedure/Surgery [id number]# 1.00CD:127 Normal [facility] RAD - CT Reporton 03-04-2022 RAD - CT Report [id number]# 1.00CD:127 Normal [facility] Screenson 03-04-2022 Screens [id number]# 1.00CD:127 Normal [facility] Screens [id number]# 1.00CD:127 Normal [facility] Ambulatory Visit Summaryon 0 03-03-2022 Ambulatory Visit [...] these instructions at home: Medicines ? Take jycv-lbe-ialxhfw and prescription medicines only as told by [...] severe vomi (more content not included)... Normal [facility] Lab Reportson 03-03-2022 Lab Reports [id number] #1.00CD:127 Normal [facility] Patient Educationon 03-03-20 Patient Education Urology Hematuria, [...] these instructions at home: Medicines ? Take yrmw-xhu-upcrcjg and prescription medicines only as told by [...] the blood stops without treatment. ? Take kzsn-dyo-lyactte and prescription medicines only as told by your health care provider. ? Drink enough fluid to keep your urine clear or pale yellow. This information is not intended to replace advice given to you by your health care provider. Make sure you discuss any questions you have with your health care provider. Document Released: 08/30/2006 Document Revised: 01/24/2020 Document Reviewed: 10/02/2017 [employer] Patient Education ? 2019 [employer]. Normal [facility] Urology Office/Clinic Noteon 03-03-2022 Urology Office/Clinic Note Chief Complaint Pt is here for cystoscopy HPI Staff Serg is a 67 y.o. male here for [...] hematuria (R31.21: Asymptomatic microscopic hematuria) CTU at [facility] on 03-02-2022 negative for filling defects or potential etiology for microhematuria Urine cytology negative Cystoscopy today negative No other concerning urologic issues. 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 Romero on 03/03/2022 10:04:11. . Documentation recorded by the scribeVirgen, accurately reflects the services(s) I performed and [...] (tozinameran 5y-11y) vac 07/28/2021 Recorded SARS-CoV-2 mRNA (cj 5y-11y) vac 11/20/2020 Recorded Normal [facility] Comment on above: Result Comment: Elec tronically Signed By: Milagro Romero MD\.br\Date and Time Signed: 03/03/22 10:22 EDT\.br\Electronically Co-Signed By: Virgen Mcclelland\.br\Date and Time Co-Signed: 03/03/22 10:04 EDT CREATININEon 03-02-2022 Creatinine [Mass/Vol] 1.23 mg/dL Normal 0.70-1.30 [facility] Comment on above: Performed By: #### C LYNN ####[facility] [address] [address]Dr. Fern Caballero EGFR-AF FAROESE >60 Normal >=60 [facility] Comment on above: Performed By: #### C LYNN ####[facility] [address] [place] [address]Dr. Fern Federico EGFR-NON AF FAROESE 59 mL/min/1.73m2 Critically low >=60 [facility] Comment on above: Performed By: #### C LYNN ####[facility] [address] [place] [address]Dr. Fern Cab[address]ero CT ABD/PELV WO W CONon 03-02 CT ABD/PELV WO W CON CT ABD/PELV WO W CO N EXAM DATE: 03/02/2022 5:27 AM MDT COMPARISON: KUMolina 02/10/2022 INDICATION: Microscopic hematuria TECHNIQUE: Helically acquired [...] by: KRISTOFER ALLEN Date: 2022-03-02 14:33 Normal [facility] Urine Cytology ([facility])on 0 03-02-2022 Urine Cytology Diagnosis Info Invalid Interpretation Code [facility] Comment on above: Result Comment: A:Ur ine,Urine:Voided Interpretation - MicroScopic Description - Adequacy - Gross Description Site ID:A color Yellow fixative Alcohol Specimen designated Urine received in alcohol preservative and labeled with the patient?s name, consists of 110ml clear yellow fluid. One non-manager beauty cytology slide prepared. Electronically signed by : on: 03/02/2022 13:28:25 Performed By: #### 1 [id number] ####[facility] [address] [place] [address] Formson 02-26-2022 Forms [id number]#1.00CD:127 Normal [facility] Physician Referralon 022 Physician Referral [id number]#1.00CD:127 Normal [facility] Screenson 02-26-2022 Screens [id number] #1.00CD:127 Normal [facility] Urology Office/Clinic Noteon 02-26-2022 Urology Office/Clinic Note [...] Will order Local anesthesia. 2. Anticoagulated (Z79.01: jail (current) use of anticoagulants) Eliquis and ASA [...] 02/25/2022 08:56:11. . Documentation recorded by the scribeRuby, accurately reflects the services(s) I performed and decisions made by me. Authenticated by Dr. Romero on 02/25/2022 23:25:29. Problem List/Past Medical History Ongoing No qualifying data Historical No qualifying data Procedure/S (more content not included)... Normal [facility] Comment on above: Result Comment: Elec tronically [...] What to do next Scheduled Follow-Up Appointments Wednesday. 2021 9:30 AM EDT With: Milagro Romero MD Where: [facility] Patient Educationon 02-26-20 22 Patient Education Urology Hematuria, Adult Hematuria is [...] these instructions at home: Medicines ? Take lisi-udv-cgxntmp and prescription medicines only as told by [...] the blood stops without treatment. ? Take root-mxd-lyztpvk and prescription medicines only as told by your health care provider. ? Drink enough fluid to keep your urine clear or pale yellow. This information is not intended to replace advice given to you by your health care provider. Make sure you discuss any questions you have with your health care provider. Document Released: 08/30/2006 Document Revised: 01/24/2020 Document Reviewed: 10/02/2017 [employer] Patient Education ? 2019 [employer] Normal [facility] Urine Cytology ([facility])on 0 02-25-2022 Method of Extraction Voided Normal [facility] Comment on above: Performed By: #### 1 [id number] ####[facility] [address] [place] [address] Number of Jars 1 Invalid Interpretation Code [facility] Comment on above: Performed By: #### 1 [id number] ####[facility] [address] [place] [address] Specimen Clean Catch Normal [facility] Comment on above: Performed By: #### 1 [id number] ####[facility] [address] [place] [address] Type of Service Technical Only Normal [facility] Comment on above: Performed By: #### 1 [id number] ####[facility] [address] [place] [address] XR KUB 1 VIEWon 02-10-2022 XR KUB [...] by: ENID LONGORIA Date: 2022-02-10 08:00 Normal [facility] CBC AUTO DIFFon 01-21-2022 BASO # 0.1 103/ul Normal 0.0-0.1 [facility] Comment on above: Performed By: #### C BC #### [facility] [address] [address] [address] Fern Caballero Basophils/100 WBC (Bld) 1.0 % Normal 0.2-2.0 [facility] Comment on above: Performed By: #### C BC #### [facility] [address] [address] [address] Fern Caballero EO # 0.2 103/ul Normal 0.0-0.7 [facility] Comment on above: Performed By: #### C BC #### [facility] [address] [place] [address] Dr. Fern Caballero Eosinophils/100 WBC (Bld) 3.0 % Normal 0.9-7.0 [facility] Comment on above: Performed By: #### C BC #### [facility] [address] [place] [address] Dr. Fern Caballero Erythrocyte distribution width (RBC) [Ratio] 12.7 % Normal 11.0-15.0 [facility] Comment on above: Performed By: #### C BC #### [facility] [address] [place] [address] Dr. Fern Caballero Hematocrit (Bld) [Volume fraction] 45.2 % Normal 42.0-54.0 [facility] Comment on above: Performed By: #### C BC #### [facility] [address] [place] [address] Dr. Fern Caballero Hemoglobin (Bld) [Mass/Vol] 15.0 g/dL Normal 14.0-18.0 [facility] Comment on above: Performed By: #### C BC #### [facility] [address] [place] [address] Dr. Fern Caballero IG # 0.03 10e3/ul Normal 0.00-0.03 [facility] Comment on above: Performed By: #### C BC #### [facility] [address] [place] [address] Dr. Fern Caballero IG % 0.4 % Normal 0.0-0.5 [facility] Comment on above: Performed By: #### C BC #### [facility] [address] [address] [address] Fern Caballero LYMPH # 2.4 103/ul Normal 1.2-3.8 [facility] Comment on above: Performed By: #### C BC #### [facility] [address] [place] [address] Dr. Fern Caballero Lymphocytes/100 WBC (Bld) 30.7 % Normal 20.5-60.0 [facility] Comment on above: Performed By: #### C BC #### [facility] [address] [place] [address] Dr. Fern Caballero MANUAL DIFF REQ NO Normal [facility] Comment on above: Performed By: #### C BC #### [facility] [address] [place] [address] Dr. Fern Caballero MCH (RBC) [Entitic mass] 30.7 pg Normal 25.9-34.0 [facility] Comment on above: Performed By: #### C BC #### [facility] [address] [place] [address] Dr. Fern Caballero MCHC (RBC) [Mass/Vol] 33.2 g/dL Normal 29.9-35.2 [facility] Comment on above: Performed By: #### C BC #### [facility] [address] [place] [address] Dr. Fern Caballero MCV (RBC) [Entitic vol] 92.4 fL Normal 80.0-94.0 [facility] Comment on above: Performed By: #### C BC #### [facility] [address] [place] [address] Dr. Fern Caballero MONO # 0.9 103/ul Critically high 0.3-0.8 [facility] Comment on above: Performed By: #### C BC #### [facility] [address] [place] [address] Dr. Fern Caballero Monocytes/100 WBC (Bld) 10.8 % Normal 1.7-12.0 [facility] Comment on above: Performed By: #### C BC #### [facility] [address] [address] [address] Fern Caballero NEUT # 4.3 103/ul Normal 1.4-6.5 [facility] Comment on above: Performed By: #### C BC #### [facility] [address] [address] [address] Fern Caballero Neutrophils/100 WBC (Bld) 54.1 % Normal 43.0-75.0 [facility] Comment on above: Performed By: #### C BC #### [facility] [address] [address] [address] Fern Caballero Platelet mean volume (Bld) [Entitic vol] 10.3 fL Normal 9.5-13.5 [facility] Comment on above: Performed By: #### C BC #### [facility] [address] [place] [address] Dr. Fern Caballero PLT 286 103/ul Normal 150-450 [facility] Comment on above: Performed By: #### C BC #### [facility] [address] [place] [address] Dr. Fern Caballero RBC 4.89 106/ul Normal 4.70-6.10 [facility] Comment on above: Performed By: #### C BC #### [facility] [address] [place] [address] Dr. Fern Caballero WBC 7.9 103/ul Normal 4.0-11.0 [facility] Comment on above: Performed By: #### C BC #### [facility] [address] [place] [address] Dr. Fern Caballero GLYCOHEMOGLOBIN A1Con 2021 ADA RECOMMENDATION SEE BELOW Normal [facility] Comment on above: Result Comment: ADA RECOMMENDED LIMIT 4.0 - 6.0 ADA THERAPEUTIC TARGET < 7.0 ACTION SUGGESTED > 7.0 Performed By: #### A 1C ####[facility] [id number] [place] [address]Dr. Fern Caballero Glucose [Mass/Vol] 171 mg/dL Normal [facility] Comment on above: Performed By: #### A 1C ####[facility] [id number] [place], [place] [address]MxDr. Fern Caballero HbA1c (Bld) [Mass fraction] 7.6 % Critically high 4.5-6.2 [facility] Comment on above: Performed By: #### A 1C ####[facility] [id number] [place] [address]Dr. Fern Caballero LIPID PROFILEon 01-21-2022 CHOL-HDL RATIO NORM SEE BELOW Normal [facility] Comment on above: Result Comment: 3.3 - 4.4 LOW RISK 4.4 - 7.1 AVERAGE RISK 7.1 - 11.0 MODERATE RISK >11.0 HIGH RISK Performed By: #### C MP, LIPID #### [facility] [address] [address] [address] Fern Caballero Cholesterol [Mass/Vol] 122 mg/dL Normal <=200 [facility] Comment on above: Performed By: #### C MP, LIPID #### [facility] [address] [address] [address] Fern Caballero Cholesterol in HDL [Mass/Vol] 36 mg/dL Critically low 40-60 [facility] Comment on above: Performed By: #### C MP, LIPID #### [facility] [address] [address] [address] Fern Caballero Cholesterol in LDL [Mass/Vol] 56.4 mg/dL Normal [facility] Comment on above: Performed By: #### C MP, LIPID #### [facility] [address] [address] [address] Fern Caballero Cholesterol.total/Ch olesterol in HDL [Mass ratio] 3.4 {ratio} Normal [facility] Comment on above: Performed By: #### C MP, LIPID #### [facility] [address] [address] [address] Fern Caballero HDL NORMAL > or = 60 mg/dl - LOW CARDIOVASCULAR RISK <40 mg/dl - HIGH CARDIOVASCULAR RISK Normal [facility] Comment on above: Performed By: #### C MP, LIPID #### [facility] [address] [address] [address] Fern Caballero LDL CALC NORMAL SEE BELOW Normal [facility] Comment on above: Result Comment: <100 mg/dl OPTIMAL 100 - 129 mg/dl NEAR OR ABOVE OPTIMAL 130 - 159 mg/dl BORDERLINE HIGH 160 - 189 mg/dl HIGH >190 mg/dl VERY HIGH Performed By: #### C MP, LIPID #### [facility] [address] [address] [address] Fern Caballero Triglyceride [Mass/Vol] 148 mg/dL Normal <=150 [facility] Comment on above: Performed By: #### C MP, LIPID #### [facility] [address] [address] [address] Fern Caballero VLDL CALC 29.6 mg/dL Normal [facility] Comment on above: Performed By: #### C MP, LIPID #### [facility] [address] [place] [address] Dr. Fern Caballero MICROALBUMIN, RAND URon 01-11 mALB 3.2 mg/L Normal <=30.0 [facility] Comment on above: Performed By: #### M ALBR #### [facility] [address] [place] [address] Dr. Fern Caballero PROF 14(COMP METB)on 022 Albumin [Mass/Vol] 4.1 g/dL Normal 3.4-5.0 [facility] Comment on above: Performed By: #### C MP, LIPID #### [facility] [address] [place] [address] Dr. Fern Caballero Albumin/Globulin [Mass ratio] 1.3 {ratio} Normal [facility] Comment on above: Performed By: #### C MP, LIPID #### [facility] [address] [place] [address] Dr. Fern Caballero ALP [Catalytic activity/Vol] 81 U/L Normal 46-116 [facility] Comment on above: Performed By: #### C MP, LIPID #### [facility] [address] [place] [address] Dr. Fern Caballero ALT [Catalytic activity/Vol] 43 U/L Normal 16-63 [facility] Comment on above: Performed By: #### C MP, LIPID #### [facility] [address] [address] [address] Fern Caballero Anion gap [Moles/Vol] 10.5 mmol/L Normal [facility] Comment on above: Performed By: #### C MP, LIPID #### [facility] [address] [address] [address] Fern Caballero AST [Catalytic activity/Vol] 20 U/L Normal 15-37 [facility] Comment on above: Performed By: #### C MP, LIPID #### [facility] [address] [address] [address] Fern Caballero Bilirubin [Mass/Vol] 0.7 mg/dL Normal 0.2-1.0 [facility] Comment on above: Performed By: #### C MP, LIPID #### [facility] [address] [place] [address] Dr. Fern Caballero Calcium [Mass/Vol] 9.5 mg/dL Normal 8.5-10.1 [facility] Comment on above: Performed By: #### C MP, LIPID #### [facility] [address] [place] [address] Dr. Fern Caballero Chloride [Moles/Vol] 101 mmol/L Normal 98-107 [facility] Comment on above: Performed By: #### C MP, LIPID #### [facility] [address] [address] [address] Fern Caballero CO2 [Moles/Vol] 27.9 mmol/L Normal 21.0-32.0 [facility] Comment on above: Performed By: #### C MP, LIPID #### [facility] [address] [place] [address] Dr. Fern Caballero Creatinine [Mass/Vol] 1.19 mg/dL Normal 0.70-1.30 [facility] Comment on above: Performed By: #### C MP, LIPID #### [facility] [address] [place] [address] Dr. Fern Caballero EGFR-AF FAROESE >60 Normal >=60 [facility] Comment on above: Performed By: #### C MP, LIPID #### [facility] [address] [address] [address] Fern Caballero EGFR-NON AF FAROESE >60 Normal >=60 [facility] Comment on above: Performed By: #### C MP, LIPID #### [facility] [address] [address] [address] Fern Caballero Globulin (S) [Mass/Vol] 3.2 g/dL Normal [facility] Comment on above: Performed By: #### C MP, LIPID #### [facility] [address] [address] [address] Fern Caballero Glucose [Mass/Vol] 175 mg/dL Critically high 74-106 [facility] Comment on above: Performed By: #### C MP, LIPID #### [facility] [address] [address] [address] Fern Caballero Potassium [Moles/Vol] 4.4 mmol/L Normal 3.5-5.1 [facility] Comment on above: Performed By: #### C MP, LIPID #### [facility] [address] [address] [address] Fern Caballero Protein [Mass/Vol] 7.3 g/dL Normal 6.4-8.2 [facility] Comment on above: Performed By: #### C MP, LIPID #### [facility] [address] [address] [address] Fern Caballero Sodium [Moles/Vol] 135 mmol/L Critically low 136-145 [facility] Comment on above: Performed By: #### C MP, LIPID #### [facility] [address] [address] [address] Fern Caballero Urea nitrogen [Mass/Vol] 18.0 mg/dL Normal 7.0-18.0 [facility] Comment on above: Performed By: #### C MP, LIPID #### [facility] [address] [address] [address] Fern Caballero Urea nitrogen/Creatinine [Mass ratio] 15.1 mg/mg Normal [facility] Comment on above: Performed By: #### C MP, LIPID #### [facility] [address] [address] [address] Fern Caballero UA RANDOM W/MICROSCOPICon BACTERIA NONE SEEN Normal NONE SEEN [facility] Comment on above: Performed By: #### U AMIC #### [facility] [address] [place] [address] Dr. Fern Caballero Bilirubin Ql (U) Negative Normal NEGATIVE [facility] Comment on above: Performed By: #### U AMIC #### [facility] [address] [place] [address] Dr. Fern Caballero CAST NONE SEEN Normal NONE SEEN [facility] Comment on above: Performed By: #### U AMIC #### [facility] [address] [place] [address] Dr. Fern Caballero Clarity (U) CLEAR Normal CLEAR [facility] Comment on above: Performed By: #### U AMIC #### [facility] [address] [place] [address] Dr. Fern Caballero Color (U) LT. YELLOW Normal YELLOW [facility] Comment on above: Performed By: #### U AMIC #### [facility] [address] [address] [address] Fern Caballero Crystals LM Nom (Urine sed) NONE SEEN Normal NONE SEEN [facility] Comment on above: Performed By: #### U AMIC #### [facility] [address] [place] [address] Dr. Fern Caballero Epithelial cells LM Ql (Urine sed) RARE Normal NONE SEEN /RARE [facility] Comment on above: Performed By: #### U AMIC #### [facility] [address] [place] [address] Dr. Fern Caballero Glucose Ql (U) Negative Normal NEGATIVE [facility] Comment on above: Performed By: #### U AMIC #### [facility] [address] [place] [address] Dr. Fern Caballero Hemoglobin Ql (U) SMALL Abnormal NEGATIVE [facility] Comment on above: Performed By: #### U AMIC #### [facility] [address] [address] [address] Fern Caballero Ketones Ql (U) Negative Normal NEGATIVE [facility] Comment on above: Performed By: #### U AMIC #### [facility] [address] [address] [address] Fern Caballero LEUKOCYTES Negative Normal NEGATIVE [facility] Comment on above: Performed By: #### U AMIC #### [facility] [address] [address] [address] Fern Caballero MUCOUS NONE SEEN Normal NONE SEEN [facility] Comment on above: Performed By: #### U AMIC #### [facility] [address] [place] [address] Dr. Fern Caballero Nitrite Ql (U) Negative Normal NEGATIVE [facility] Comment on above: Performed By: #### U AMIC #### [facility] [address] [place] [address] Dr. Fern Caballero pH (U) 5.5 [pH] Normal 5-9 [facility] Comment on above: Performed By: #### U AMIC #### [facility] [address] [address] [address] Fern Caballero RBC 2-5 Abnormal 0-2 [facility] Comment on above: Performed By: #### U AMIC #### [facility] [address] [place] [address] Dr. Fenr Caballero SPEC GRAVITY >=1.030 Abnormal 1.005-<=1.025 [facility] Comment on above: Performed By: #### U AMIC #### [facility] [address] [place] [address] Dr. Fern Caballero UA PROTEIN Negative Normal NEGATIVE/ TRACE [facility] Comment on above: Performed By: #### U AMIC #### [facility] [address] [place] [address] Dr. Fern Caballero Urobilinogen Qn (U) 0.2 {Prudencio'U}/dL Normal 0.2 - 1. 0 [facility] Comment on above: Performed By: #### U AMIC #### [facility] [address] [place], [place] [address] Dr. Fern Caballero WBC NONE SEEN Normal NONE SEEN [facility] Comment on above: Performed By: #### U AMIC #### [facility] [address] [place], [place] [address] Dr. Fern Caballero VITAMIN D 25 OHon 01-21-2022 VIT D 25-OH 34.0 ng/mL Normal [facility] Comment on above: Performed By: #### V ITAD, PSASC ####[facility] [address] [place], [place] [address]ZqDr. Fern Caballero VIT D RANGES SEE BELOW Normal [facility] Comment on above: Result Comment: <20 ng/mL Vit D deficient 20 - <30 ng/mL Vit D insufficient 30 - 100 ng/mL Vit D sufficient >100 ng/mL Potential Toxicity Performed By: #### V ITAD, PSASC ####[facility] [address] [place], [place] [address]HtDr. Fern Caballero Cardiovascular Lab Reporton 01-18-2021 Cardiovascular Lab Report [facility] Patient Name: [facility] Serg Lara MR #: [id number] Department of Physician: Sanam So M.D. Division of Service Date: 01/17/2021 Cardiology Birthdate: 1955 Adult Cardiovascular Room #: [place] [address] Cardiovascular Laboratory Report PROCEDURE: Synchronized cardioversion for [...] Blood M.D. Date Trans: 01/18/2021 03:02 A/christine [id number] cc: Daniela Mendoza N.P. [facility] [address] [address] Elayne Infante, HOUSE DESIGNER [address] [id number] Normal [facility] Vital Signs Date Time Vital Sign Value Performing Clinician Facility 01-30-2025 10: Body mass index (BMI) [Ratio] 25.51 kg/m2 Daniela Mendoza [employer] Work Phone: [facility] 01-30-2025 10:22040 Body temperature 98.49 [degF] Daniela Mendoza [employer] Work Phone: [facility] 01-30-2025 10:22040 Body weight 76.11 kg Daniela Mendoza [employer] Work Phone: [facility] 01-30-2025 10:22-040 Diastolic blood pressure 78 mm[Hg] Daniela Mendoza [employer] Work Phone: [facility] 01-30-2025 10:22-0400 Heart rate 57 /min Daniela Aichholz [employer] Work Phone: [facility] 01-30-2025 10:22-0400 Respiratory rate 18 /min Daniela Aichholz [employer] Work Phone: [facility] 01-30-2025 10:22-0400 SaO2% (BldA) [Mass fraction] 97 % Daniela Aichholz [employer] Work Phone: [facility] 01-30-2025 10:22-0400 Systolic blood pressure 124 mm[Hg] Daniela Aichholz [employer] Work Phone: [facility] 07-25-2024 08:32-0500 Body height 172.7 cm Daniela Aichholz [employer] Work Phone: [facility] 07-25-2024 08:32-0500 Body mass index (BMI) [Ratio] 25.73 kg/m2 Daniela Aichholz [employer] Work Phone: [facility] 07-25-2024 08:32-0500 Body temperature 98.49 [degF] Daniela Aichholz [employer]PER[employer] Work Phone: [facility] 07-25-2024 08:32-0500 Body weight 76.75 kg Daniela Aichholz [employer] Work Phone: [facility] 07-25-2024 08:32-0500 Diastolic blood pressure 78 mm[Hg] Daniela Aichholz [employer] Work Phone: [facility] 07-25-2024 08:32-0500 Heart rate 60 /min Daniela Aichholz [employer] Work Phone: [facility] 07-25-2024 08:32-0500 Respiratory rate 18 /min Daniela Aichholz [employer] Work Phone: [facility] 07-25-2024 08:32-0500 SaO2% (BldA) [Mass fraction] 100 % Daniela Aichholz [employer]PER[employer] Work Phone: [facility] 07-25-2024 08:32-0500 Systolic blood pressure 140 mm[Hg] Daniela Reji [employer]PER[employer] Work Phone: [facility] 03-03-2022 09:12-0400 Blood Pressure Location Milagro Lue [facility] 03-03-2022 09:12-0400 Diastolic blood pressure 81 mm[Hg] Milagro Lue [facility] 03-03-2022 09:12-0400 Heart rate 75 /min Milagro Lue [facility] 03-03-2022 09:12-0400 Systolic blood pressure 126 mm[Hg] Milagro Lue [facility] 02-25-2022 08:26-0400 Blood Pressure Location [facility] 02-25-2022 08:26-0400 Diastolic blood pressure 78 mm[Hg] Milagro Lue [facility] 02-25-2022 08:26-0400 Heart rate 65 /min [facility] 02-25-2022 08:26-0400 Systolic blood pressure 151 mm[Hg] Milagro Lue [facility] Encounters Encounter Date Encounter Type Care Provider Facility Start: 01-30-2025 End: 01-30-2025 Bamboo flowsheet Daniela Mendoza [employer]ANCE Work Phone: [facility] Start: 01-30-2025 End: 01-30-2025 Bamboo flowsheet Danielanils Mendoza [employer]PER[employer]UIDANCE Work Phone: [facility] Start: 01-30-2025 End: 01-30-2025 Patient encounter procedure Daniela Reji [employer] Work Phone: [facility] Comment on above: Encounter for subseq uent annual wellness visit (AWV) in Medicare patient (Primary Dx); Benign essential hypertension (CMS/HCC); Chronic atrial fibrillation (HCC) (CMS/HCC); Type 2 diabetes mellitus without complication, without long-term current use of insulin; Mixed hyperlipidemia (CMS/HCC); Screening for prostate cancer; Vitamin D deficiency; Paroxysmal atrial fibrillation (CMS/HCC) Start: 01-30-2025 End: 01-30-2025 ambulatory DANIELA AICHHOLZ Not Available Start: 01-01-2025 End: 01-02-2025 Refill Zeeshan Patel MD Work Phone: [facility] Comment on above: Mixed hyperlipidemia (CMS/HCC); Chronic atrial fibrillation (HCC) (CMS/HCC); Benign essential hypertension (CMS/HCC) Start: 10-03-2024 End: 10-03-2024 Refill Daniela Phyllishayanz [employer]ANCE Work Phone: [facility] Comment on above: Chronic atrial fibri llation (HCC) (CMS/HCC); Type 2 diabetes mellitus without complication, without long-term current use of insulin (CMS/HCC) Start: 08-29-2024 End: 08-29-2024 ambulatory DVAIS [facility] Start: 08-14-2024 End: 08-14-2024 Telephone encounter Danielanils Mendoza [employer]ANCE Work Phone: [facility] Start: 07-25-2024 End: 07-25-2024 Bamboo flowsheet Daniela Aichholz [employer]PER[employer]UIDANCE Work Phone: [facility] Start: 07-25-2024 End: 07-25-2024 Bamboo flowsheet Daniela Aichholz [employer]PER[employer]ANCE Work Phone: [facility] Start: 07-25-2024 End: 07-25-2024 Office outpatient visit 25 minutes Danielanils Russellz [employer] Work Phone: [facility] Comment on above: Type 2 diabetes olivier itus without complication, without long- term current use of insulin (CMS/HCC) (Primary Dx); Other thrombophilia (CMS/HCC); Peripheral vascular disease, unspecified (CMS/HCC); Obstructive sleep apnea syndrome; Benign essential hypertension (CMS/HCC); Chronic atrial fibrillation (HCC) (CMS/HCC); Anticoagulated; Needs flu shot; Gastroesophageal reflux disease without esophagitis Start: 07-25-2024 End: 07-25-2024 ambulatory DANIEAL AICHHOLZ Not Available Start: 07-05-2024 End: 07-05-2024 Refill Daniela Aichholz [employer] Work Phone: [facility] Comment on above: Chronic atrial fibri llation (HCC) (CMS/HCC); Type 2 diabetes mellitus without complication, without long-term current use of insulin (CMS/HCC); Mixed hyperlipidemia (CMS/HCC); Benign essential hypertension (CMS/HCC) Start: 06-12-2024 End: 06-12-2024 Refill Daniela Aichholz [employer]ANCE Work Phone: [facility] Comment on above: Type 2 diabetes olivier itus without complication, without long- term current use of insulin (CMS/HCC) Start: 01-25-2024 Patient encounter procedure Daniela Aichholz [employer]ANCE Work Phone: [facility] Start: 09-29-2023 End: 09-29-2023 ambulatory [facility] Start: 07-15-2022 End: 07-16-2022 ambulatory HOUSE DESIGNER DANIELA AICHHOLZ Facility:[facility] Start: 04-02-2022 End: 04-03-[address] ELIZABETH CROW Facility:[facility] Start: 03-23-2022 End: 03-24-2022 ambulatory WIL DANIELA PHYLLISCelinaDONTRELL Facility:[facility] Start: 03-03-2022 End: 03-03-2022 Patient encounter procedure Milagro JarrettViet Padillamargoth [facility] Start: 03-02-2022 End: 03-03-2022 ambulatory MILAGRO Jarrett MILLAMargoth . Facility:[facility] Start: 02-25-2022 End: 02-25-2022 Patient encounter procedure Milagro JarrettViet Padillamargoth [facility] Start: 02-10-2022 End: 02-11-2022 ambulatory WIL URIARTE PHYLLISCelinaDONTRELL Facility:[facility] Start: 01-21-2022 End: 01-22-2022 ambulatory WIL URIARTE PHYLLISCelinaAYANCheri Facility:[facility] Start: 01-17-2021 End: 01-18-2021 ambulatory CANDIDO BLOOD Facility:[facility] Procedures Date Procedure Procedure Detail Performing Clinician Start: 01-30-2025 Hemoglobin glycosyla pete a1c Daniela Drewz [employer]ANCE Work Phone: Start: 07-25-2024 Hemoglobin glycosyla pete a1c Daniela Phylliscelinaholz [employer]PER[employer]UIDANCE Work Phone: Start: 01-21-[address] DOUGIE CROW Comment on above: Performed By: #### V ITAD, PSASC ####[facility] [address] [place], [place] [address]BmViet Caballero Start: 04-17-2015 Colonoscopy Daniela Ferdinand montiel [employer]PER[employer]UIDANCE Work Phone: Colonoscopy Milagro Romero Hernia of abdominal cavity (disorder) Milagro Romero Plan of Treatment Date Care Activity Detail Author Start: 02-05-2026 End: 02-05-2026 Patient encounter procedure 02/05/2026 10:00 AM EDT Office Visit [facility] [address] [place] [address] Daniela Mendoza, LUCILA [address] [place] [address] [facility] Start: 01-30-2026 Medicare Annual Well ness (AWV) Medicare Annual Wellness (AWV) [facility] Start: 08-02-2025 End: 08-02-2025 Patient encounter procedure 08/02/2025 9:00 AM EST Office Visit [facility] [address] [place] [address] Daniela Mendoza, LUCILA [address] [place] [phone] [facility] Start: 05-02-2025 Hemoglobin A1c measurement Diabetes: Hemoglobin A1C [facility] Start: 04-17-2025 Screening for malign ant neoplasm of colon [facility] Start: 02-24-2025 Urine screening for protein Diabetes: Urine Protein Screening [facility] Start: 01-30-2025 End: 01-30-2026 25-hydroxyvitamin D3 [Mass/volume] in Serum or Plasma Vitamin D 25 hydroxy Lab Routine Vitamin D deficiency Expected: 01/30/2025 (Approximate), Expires: 01/30/2026 [facility] Comment on above: Expected: 01/30/2025 (Approximate), Expires: 01/30/2026 Start: 01-30-2025 End: 01-30-2026 CBC W Auto Differential panel - Blood CBC and differential Lab Routine Chronic atrial fibrillation (HCC) ([facility]/HCC) Expected: 01/30/2025 (Approximate), Expires: 01/30/2026 [facility] Comment on above: Expected: 01/30/2025 (Approximate), Expires: 01/30/2026 Start: 01-30-2025 End: 01-30-2026 Comprehensive metabolic 2000 panel - Serum or Plasma Comprehensive metabolic panel Lab Routine Benign essential hypertension (CMS/HCC) Type 2 diabetes mellitus without complication, without long-term current use of insulin Mixed hyperlipidemia (CMS/HCC) Vitamin D deficiency Expected: 01/30/2025 (Approximate), Expires: 01/30/2026 [facility] Comment on above: Expected: 01/30/2025 (Approximate), Expires: 01/30/2026 Start: 01-30-2025 End: 01-30-2026 Lipid 1996 panel - Serum or Plasma Lipid panel Lab Routine Mixed hyperlipidemia (CMS/HCC) Expected: 01/30/2025 (Approximate), Expires: 01/30/2026 [facility] Comment on above: Expected: 01/30/2025 (Approximate), Expires: 01/30/2026 Start: 01-30-2025 End: 01-30-2026 Microalbumin/Creatinine panel in random Urine Microalbumin / creatinine, urine ratio Lab Routine Benign essential hypertension (CMS/HCC) Type 2 diabetes mellitus without complication, without long-term current use of insulin Expected: 01/30/2025 (Approximate), Expires: 01/30/2026 [facility] Comment on above: Expected: 01/30/2025 (Approximate), Expires: 01/30/2026 Start: 01-30-2025 End: 01-30-2026 Prostate specific Ag [Mass/volume] in Serum or Plasma PSA Lab Routine Screening for prostate cancer Expected: 01/30/2025 (Approximate), Expires: 01/30/2026 [facility] Work Phone: Comment on above: Expected: 01/30/2025 (Approximate), Expires: 01/30/2026 Start: 01-30-2025 End: 01-30-2026 Urinalysis complete panel - Urine Urinalysis with reflex microscopic (clean catch) Lab Routine Benign essential hypertension (CMS/HCC) Type 2 diabetes mellitus without complication, without long-term current use of insulin Mixed hyperlipidemia (CMS/HCC) Expected: 01/30/2025 (Approximate), Expires: 01/30/2026 [facility] Comment on above: Expected: 01/30/2025 (Approximate), Expires: 01/30/2026 Start: 01-30-2025 End: 01-30-2025 Patient encounter procedure [facility] Comment on above: Benign essential hyp ertension ([facility]/HCC) (Primary Dx); Chronic atrial fibrillation (HCC) ([facility]); Type 2 diabetes mellitus without complication, without long-term current use of insulin; Encounter for subsequent annual wellness visit (AWV) in Medicare patient; Mixed hyperlipidemia ([facility]); Screening for prostate cancer; Vitamin D deficiency; Colon cancer screening Start: 01-24-2025 Medicare Annual Well ness (AWV) Medicare Annual Wellness (AWV) [facility] Start: 10-25-2024 Hemoglobin A1c measurement Diabetes: Hemoglobin A1C [facility] Start: 07-25-2024 End: 07-25-2025 Hemoglobin A1c/Hemoglobin.total in Blood Hemoglobin A1c Lab Routine Type 2 diabetes mellitus without complication, without long-term current use of insulin ([facility]) Expected: 07/25/2024 (Approximate), Expires: 07/25/2025 [facility] Work Phone: Comment on above: Expected: 07/25/2024 (Approximate), Expires: 07/25/2025 Start: 07-25-2024 End: 07-25-2024 Patient encounter procedure 07/25/2024 8:40 AM EST Office Visit [facility] [address] [place] [id number] Daniela Mendoza NP [address] [place] [address] [facility] Start: 05-14-2024 Influenza vaccination Influenza Vacc ine (#1) [facility] Start: 1965 Glaucoma screening Diabetes: R etinopathy Screening [facility] Start: 1955 Screening for malign ant neoplasm of colon [facility] Immunizations Immunization Date Immunization Notes Care Provider Fa cility 07-25-2024 Seasonal trivalent influenza vaccine, adjuvanted, preservative free Daniela Mendoza [employer] Work Phone: [facility] 07-21-2023 Influenza, High-dose Seasonal, Quadrivalent, Preservative Free Daniela Mendoza [employer] Work Phone: [facility] 07-21-2023 influenza virus vacc ine, unspecified formulation Daniela Aichholz [employer] Work Phone: [facility] 01-21-2023 zoster vaccine recombinant Daniela Aichholz [employer] Work Phone: [facility] 10-22-2022 Pneumococcal Conjuga te PCV 20 Daniela Aichholz [employer] Work Phone: [facility] 10-22-2022 zoster vaccine recombinant Daniela Aichholz [employer] Work Phone: [facility] 07-28-2021 Jane SARS-CoV-2 Daniela Aich dontrell [employer] Work Phone: [facility] 07-28-2021 SARS-CoV-2 mRNA (tozinameran 5y-11y) vaccine Milagro Lue [facility] 11-20-2020 Jane SARS-CoV-2 Daniela Aich dontrell [employer] Work Phone: [facility] 11-20-2020 SARS-CoV-2 mRNA (tozinameran 5y-11y) vaccine Milagro Lue [facility] 07-11-2015 influenza, seasonal, injectable, preservative free Daniela Aichholz [employer] Work Phone: [facility] 06-18-2015 influenza, seasonal, injectable Daniela Aichholz [employer] Work Phone: [facility] 06-05-2014 influenza, seasonal, injectable, preservative free Daniela Aichholz [employer] Work Phone: [facility] 06-05-2014 pneumococcal polysaccharide vaccine, 23 valent Daniela Aichholz [employer] Work Phone: [facility] 06-27-2013 influenza, seasonal, injectable, preservative free Daniela Aichholz [employer] Work Phone: [facility] 09-09-2012 seasonal influenza, intradermal, preservative free Daniela Mendoza [employer] Work Phone: [facility] 07-14-2011 influenza virus vacc ine, whole virus Daniela Mendoza [employer] Work Phone: [facility] 09-13-2005 tetanus and diphther ia toxoids, adsorbed, preservative free, for adult use (5 Lf of tetanus toxoid and 2 Lf of diphtheria toxoid) Daniela Mendoza [employer] Work Phone: [facility] 09-13-2005 tetanus toxoid, redu brittany diphtheria toxoid, and acellular pertussis vaccine, adsorbed Daniela Mendoza [employer] Work Phone: [facility] Payers Date Payer Category Payer Medicare [id number] 2019 Unknown [id number] 1957 Medicare [id number] 1957 Private Health Insurance ACC [id number] 1955 Unknown [id number] 1955 Unknown [id number] 2.16.84 [id number] 1955 Unknown [id number] 2.16.84 [id number] 1957 Unknown [id number] 2.16.84 [id number] 1957 Unknown [id number] 2.16.84 [id number] 1957 Unknown [id number] 2.16.84 [id number] 1957 Unknown [id number] 2.16.84 [id number] 1957 Unknown [id number] 2.16.84 [id number] 1955 Unknown [id number] Social History Date Type Detail Facility Start: 02-25-2022 End: 07-25-2024 Tobacco smoking status Ex-smoker (finding) [facility] Start: 01-25-2024 End: 01-24-2025 Sex Assigned At Male [facility] End: 09-13-1989 History of tobacco use Current smoker [facility] End: 09-13-1989 History of tobacco use Cigarette Smoker [facility] Start: 01-25-2024 End: 07-25-2024 Tobacco use and exposure Smokeless tobacco non-user [facility] Start: 01-25-2024 End: 01-30-2025 Alcoholic beverage intake Lifetime non-drinker (finding) [facility] Start: 01-25-2024 End: 01-24-2025 History of Social function [facility] Start: 1955 Sex assigned at Not on file [facility] How often do you nee d to have someone help you when you read instructions, pamphlets, or other written material from your doctor or pharmacy [SILS] Never [facility] Within the last year , have you been afraid of your partner or ex-partner? No [facility] How often do you get together with friends or relatives? Patient declined [facility] Are you now , , , , never or living with a partner? [facility] NEGATED: Highlighted rowStart: NINF History of tobacco use Passive smoker [facility] Functional Status Date Assessment Result Facility 01-30-2025 Patient Health Quest ionnaire 2 item (PHQ-2) [Reported] [facility] 03-03-2022 Functional Status N/A [facility] 02-25-2022 Functional Status N/A [facility] Clinical Notes 02-25-2022 to 01-30-2025 Daniela Mendoza NP - 01/30/2025 11:32 AM Naveen Mendoza NP - 01/30/2025 10:00 AM Naveen Mendoza NP - 01/30/2025 6:20 AM Naveen Mendoza NP - 01/30/2025 6:20 AM EDTPatient Instructions Note Date & Type Note Facility 01-30-2025 History of Present illness Narrative Associated Problem(s): Paroxysmal atrial fibrillation ([facility]/HCC) On eliquis, cardiology is talking about taking him off eliquis and placing loop recorder Cont b tita Images from the original note were not included. Serg Velasquez is a 70 y.o. 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 He has type 2 diabetes mellitus. His disease course has been stable. There are no hypoglycemic associated symptoms. Pertinent negatives for hypoglycemia include no dizziness, nervousness/anxiousness, seizures or tremors. Pertinent negatives for diabetes include no chest pain, no foot paresthesias, no polydipsia, no polyphagia and no polyuria. There are no hypoglycemic complications. Symptoms are stable. Diabetic complications include heart disease. Pertinent negatives for diabetic complications include no nephropathy, peripheral neuropathy or PVD. Risk factors for coronary artery disease include diabetes mellitus, dyslipidemia, hypertension and male sex. Current diabetic treatment includes oral agent (dual therapy). He is following a generally healthy diet. His overall blood glucose range is 130-140 mg/dl. An FAZAL inhibitor/angiotensin II receptor tita is not being taken. Eye exam is current. Hypertension This is a chronic problem. The current episode started more than 1 year ago. The problem is unchanged. The problem is controlled. Pertinent negatives include no chest pain, palpitations, peripheral edema or shortness of breath. There are no associated agents to hypertension. Risk factors for coronary artery disease include diabetes mellitus, dyslipidemia and male gender. Past treatments include beta blockers and angiotensin blockers. The current treatment provides significant improvement. There are no compliance problems. Hypertensive end-organ damage includes CAD/[place]. There is no history of heart failure or PVD. SUBJECTIVE: MEDICATIONS: Current Outpatient Medications Medication Instructions apixaban (ELIQUIS) 5 mg, 2 times daily aspirin 81 mg, Daily atorvastatin (LIPITOR) 40 mg, Oral, Nightly losartan (COZAAR) 100 mg, Oral, Daily metFORMIN (GLUCOPHAGE) 1,000 mg, Oral, 2 times daily with meals metoprolol tartrate (LOPRESSOR) 50 mg, Oral, 2 times daily pioglitazone (ACTOS) 45 mg, Oral, Daily ALLERGIES: No Known Allergies REVIEW OF SYMPTOMS: Review of Systems Constitutional: Negative for activity change, appetite change and unexpected weight change. HENT: Negative for ear pain, nosebleeds, sneezing, trouble swallowing and voice change. Eyes: Negative for pain, discharge and visual disturbance. Respiratory: Negative for apnea, chest tightness, shortness of breath and wheezing. Cardiovascular: Negative for chest pain, palpitations and leg swelling. Gastrointestinal: Negative for abdominal distention, blood in stool, constipation and diarrhea. Genitourinary: Negative for decreased urine volume, difficulty urinating, dysuria and hematuria. Skin: Negative for color change. Neurological: Negative for dizziness, tremors and seizures. Psychiatric/Behavioral: Negative for agitation, decreased concentration, hallucinations, self-injury and suicidal ideas. The patient is not nervous/anxious. Hematological: Negative for adenopathy. Does not bruise/bleed easily. Endocrine: Negative for cold intolerance, heat intolerance, polydipsia, polyphagia and polyuria. Allergic/Immunologic: Negative for environmental allergies and food allergies. PAST MEDICAL HISTORY History reviewed. No pertinent past medical history. History reviewed. No pertinent surgical history. family history is not on file. OBJECTIVE: Visit Vitals BP 124/78 (BP Location: Left arm, Patient Position: Sitting, BP Cuff Size: Adult long) Pulse 57 Temp 98.5 F (Temporal) Resp 18 Wt 167 lb 12.8 oz SpO2 97% BMI 25.51 kg/m Smoking Status Former BSA 1.91 m Physical Exam Vitals and nursing note reviewed. Constitutional: Appearance: Normal appearance. HENT: Head: Normocephalic. Right Ear: External ear normal. Left Ear: External ear normal. Nose: Nose normal. Mouth/Throat: Mouth: Mucous membranes are moist. Pharynx: Oropharynx is clear. Eyes: Extraocular Movements: Extraocular movements intact. Conjunctiva/sclera: Conjunctivae normal. Neck: Vascular: No carotid bruit. Cardiovascular: Rate and Rhythm: Normal rate and regular rhythm. Pulses: Normal pulses. Heart sounds: Normal heart sounds. No murmur heard. Pulmonary: Effort: Pulmonary effort is normal. Breath sounds: Normal breath sounds. No wheezing or rhonchi. Abdominal: General: Bowel sounds are normal. Palpations: Abdomen is soft. Musculoskeletal: Cervical back: Neck supple. Right lower leg: No edema. Left lower leg: No edema. Skin: General: Skin is warm and dry. Capillary Refill: Capillary refill takes 2 to 3 seconds. Neurological: General: No focal deficit present. Mental Status: He is alert. Psychiatric: Mood and Affect: Mood normal. Behavior: Behavior normal. Thought Content: Thought content normal. Judgment: Judgment normal. ASSESSMENT AND PLAN: Follow up in about 6 months (around 08/02/2025) for Recheck. Problem List Items Addressed This Visit Benign essential hypertension (CMS/HCC) - Primary Please check blood pressure daily and record DASH diet Limit caffeine Take medication as directed Contact office if chest pain, pressure, dizziness, shortness of breath, swelling legs Recommend slow position changes Relevant Orders Comprehensive metabolic panel Urinalysis with reflex microscopic (clean catch) Microalbumin / creatinine, urine ratio RESOLVED: Chronic atrial fibrillation (HCC) (CMS/HCC) Continue with Eliquis, as well as lopressor Follows with cardiology Relevant Orders CBC and differential DM w/o complication type II Check blood sugars daily, notify if <70 or >200. Take medications (pills or insulin) as directed. Monitor for s/s of hypoglycemia (sweaty, dizziness, nausea, vomiting, or shakiness). Watch for increase in thirst, urination, or appetite. Inspect feet frequently monitoring for open wounds , and also recommend yearly eye exam. Pt should attempt to remain as physically active as chronic conditions allow, as well as trying to follow a diet low in carbohydrates, and simple sugars. Current meds: statin, losartan, metformin, pioglitazone A1c: 7.8% 01/30/25 Would like to see less than 7.5%, consider jardiance, however cost may be a factor, will think about it Relevant Orders POCT glycosylated hemoglobin (Hb A1C) docked device (Completed) Comprehensive metabolic panel Urinalysis with reflex microscopic (clean catch) Microalbumin / creatinine, urine ratio Mixed hyperlipidemia (CMS/HCC) On statin therapy Check labs yearly and prn dose changes Relevant Orders Comprehensive metabolic panel Lipid panel Urinalysis with reflex microscopic (clean catch) Vitamin D deficiency Check labs Relevant Orders Comprehensive metabolic panel Vitamin D 25 hydroxy Screening for prostate cancer Relevant Orders PSA Encounter for subsequent annual wellness visit (AWV) in Medicare patient Reviewed Ht/Wt/BMI Recommend eye exam yearly Recommend dental exams twice a year Balance work/leisure activities Exercises is recommended most days of the week (appropriate as chronic conditions allow) Follow up yearly and prn Paroxysmal atrial fibrillation (CMS/HCC) On eliquis, cardiology is talking about taking him off eliquis and placing loop recorder Cont b tita Associated Problem(s): Vitamin D deficiency Check labs Associated Problem(s): Mixed hyperlipidemia (CMS/HCC) On statin therapy Check labs yearly and prn dose changes Associated Problem(s): Encounter for subsequent annual wellness visit (AWV) in Medicare patient Reviewed Ht/Wt/BMI Recommend eye exam yearly Recommend dental exams twice a year Balance work/leisure activities Exercises is recommended most days of the week (appropriate as chronic conditions allow) Follow up yearly and prn Associated Problem(s): DM w/o complication type II Check blood sugars daily, notify if <70 or >200. Take medications (pills or insulin) as directed. Monitor for s/s of hypoglycemia (sweaty, dizziness, nausea, vomiting, or shakiness). Watch for increase in thirst, urination, or appetite. Inspect feet frequently monitoring for open wounds , and also recommend yearly eye exam. Pt should attempt to remain as physically active as chronic conditions allow, as well as trying to follow a diet low in carbohydrates, and simple sugars. Current meds: statin, losartan, metformin, pioglitazone A1c: 7.8% 01/30/25 Would like to see less than 7.5%, consider jardiance, however cost may be a factor, will think about it Associated Problem(s): Chronic atrial fibrillation (HCC) (CMS/HCC) (Resolved 01/30/2025) Continue with Eliquis, as well as lopressor Follows with cardiology Associated Problem(s): Benign essential hypertension (CMS/HCC) Please check blood pressure daily and record DASH diet Limit caffeine Take medication as directed Contact office if chest pain, pressure, dizziness, shortness of breath, swelling legs Recommend slow position changes documented in this encounter [facility] 01-30-2025 Instructions Daniela Mendoza NP - 01/30/2025 10:00 AM EDT Get labs fasting documented in this encounter [facility] 08-29-2024 Note [place] [facility] Consult Note [place] [facility] - [facility] Reason for visit: afib HPI: Serg Velasquez is a 69 y.o. year old with past medical history of HTN, HLD, paroxsymal atrial fibrillation on elliquis, s/p cardioversion in 2015 and most recent in 01/2021. Has maintained sinus rhythm since with no AAD. Currently takes Eliquis 5 mg BID. Patient states he is feeling well and stays active. He denies chest pain, SOB, palpitations, lightheadedness/syncope, and bleeding on Eliquis. Says his BP at home averages around 135/82. PMH: Past Medical History: Diagnosis Date Atrial fibrillation (CMS/HCC) Diabetes mellitus (CMS/HCC) Hyperlipidemia Hypertension PSH: Past Surgical History: Procedure Laterality Date CARDIOVERSION 07/22/2016 CHOLECYSTECTOMY HERNIA REPAIR SH: Social Determinants of Health Tobacco Use: Medium Risk (07/25/2024) Received from [facility] Patient History Smoking Tobacco Use: Former Smokeless Tobacco Use: Never Passive Exposure: Never Alcohol Use: Not on file Financial Resource Strain: Not on file Food Insecurity: Not on file Transportation Needs: Not on file Physical Activity: Not on file Stress: Not on file Social Connections: Not on file Intimate Partner Violence: Unknown (11/04/2023) [place] Safety & Environment Fear of Current or Ex-Partner: Not on file Emotionally Abused: Not on file Physically Abused: Not on file Sexually Abused: Not on file Physically or Sexually Abused: Not on file Depression: Not at risk (01/25/2024) Received from [facility] PHQ-2 Patient Health Questionnaire-2 Score: 0 Housing Stability: Not on file Utilities: Not on file Health Literacy: Not on file Allergies: No Known Allergies Weight: 75.3kg Visit Vitals BP 140/78 (BP Location: Right arm, Patient Position: Sitting) Pulse 60 Ht 1.727 m (5' 8 ) Wt 75.3 kg (166 lb) SpO2 96% BMI 25.24 kg/m??? Smoking Status Former BSA 1.9 m??? Meds: Current Outpatient Medications on File Prior to Visit Medication Sig Dispense Refill apixaban (Eliquis) 5 mg tablet Take 1 tablet (5 mg) by mouth in the morning and at bedtime. 180 tablet 3 aspirin 81 mg capsule Take by mouth. [...] facility-administered medications on file prior to visit. ROS: Review of Systems All other systems reviewed and are negative. Physical Exam: Constitutional General Appearance: well-nourished, well-developed, appears stated age Level of Distress: comfortable Psychiatric Mental Status: alert, normal affect Orientation: oriented to time, place, and person Insight: good judgement Eyes Lids and Conjunctivae: non-injected, no xanthelasma ENMT Ears: no lesions on external ear Nose: no lesions on external nose Oropharynx: no cyanosis, no pallor Neck Neck: supple, trachea midline Carotid Arteries: bilateral normal upstroke, no bruits Jugular Veins: normal jugular venous pressure Thyroid: not enlarged Lungs Respiratory Effort: unlabored Chest Exam: normal curvature, no thoracic deformity Auscultation: clear, no wheezing, no rales, no rhonchi Cardiovascular Rate And Rhythm: regular Heart Sounds: normal S1, normal s2, no gallop Systolic Murmur: not heard Diastolic Murmur: not heard Extremities: no cyanosis, no edema, no peripheral signs of emboli Peripheral Pulses Radial Pulse: normal Abdomen Inspection and Palpation: soft, non distended, no bruit, non tender Musculoskeletal Inspection: no joint swelling Neurologic Gait: normal gait Skin Inspection and Palpation: warm and dry Nails: no clubbing Labs: Labs 02/25/24 Hemoglobin 14.4., hematocrit 42.9, sodium 139, potassium 4.3, creatinine 1.16, hgA1c 7.2, AST 16, ALT 30 Lipids 02/25/24- cholesterol 132, LDL 58, HDL 47, tri 135 EKG: No results found for this or any previous visit (from the past 4464 hour(s)). Echo: 12/18/2019 Conclusions Left Ventricle: The left ventricle is normal size. Global left ventricular systolic function is normal. EF range is estimated at 60 % -65 %. Left ventricular wall thickness is normal. The septum is abnormal, consistent with RV volume and/or pressure overload. Unable to assess diastolic dysfunction. Right Ventricle: The right ventricle is moderately enlarged. Normal right ventricular systolic function. Doppler studies suggest normal right sided pressures. Left Atrium: The left atrium is mildly enlarged. Mitral Valve: Mild mitral regurgitation. Tricuspid Valve: Mild-moderate tricuspid regurgitation (more content not included)... [facility] 08-14-2024 Miscellaneous Notes Please contact patient regarding if he checked with his insurance about either adding Farxiga or possibly Jardiance to his medication for treatment of his diabetes? [place] documented in this encounter [facility] 08-14-2024 Telephone encounter Note Please contact patient regarding if he checked with his insurance about either adding Farxiga or possibly Jardiance to his medication for treatment of his diabetes? [place] [facility] 07-25-2024 History of Present illness Narrative Associated Problem(s): Obstructive sleep apnea syndrome Does not wear a machine Images from the original note were not included. Serg Velasquez is a 69 y.o. male presents with chief complaint of No chief complaint on file. HPI: Diabetes He presents for his follow-up diabetic visit. He has type 2 diabetes mellitus. His disease course has been stable. There are no hypoglycemic associated symptoms. Pertinent negatives for hypoglycemia include no dizziness, headaches, nervousness/anxiousness, seizures or tremors. Associated symptoms include polydipsia and polyphagia. Pertinent negatives for diabetes include no blurred vision, no chest pain, no fatigue, no polyuria, no visual change and no weakness. There are no hypoglycemic complications. Symptoms are stable. Diabetic complications include PVD. Risk factors for coronary artery disease include diabetes mellitus, dyslipidemia and hypertension. Current diabetic treatment includes oral agent (dual therapy). He is compliant with treatment all of the time. Exercise: no organized exercise, is active around the house. His overall blood glucose range is 140-180 mg/dl. An FAZAL inhibitor/angiotensin II receptor tita is being taken. He does not see a other sports coach or instructor.Eye exam is current. Hypertension This is a chronic problem. The current episode started more than 1 year ago. The problem is unchanged. The problem is controlled. Pertinent negatives include no blurred vision, chest pain, headaches, orthopnea, palpitations, peripheral edema or shortness of breath. There are no associated agents to hypertension. Risk factors for coronary artery disease include diabetes mellitus, dyslipidemia and male gender. Past treatments include beta blockers and angiotensin blockers. The current treatment provides significant improvement. There are no compliance problems. Hypertensive end-organ damage includes CAD/[place] and PVD. SUBJECTIVE: MEDICATIONS: Current Outpatient Medications Medication Instructions apixaban (ELIQUIS) 5 mg, Oral, 2 times daily aspirin 81 mg, Oral, Daily atorvastatin (LIPITOR) 40 mg, Oral, Nightly losartan (COZAAR) 100 mg, Oral, Daily metFORMIN (GLUCOPHAGE) 1,000 mg, Oral, 2 times daily with meals metoprolol tartrate (LOPRESSOR) 50 mg, Oral, 2 times daily pioglitazone (ACTOS) 45 mg, Oral, Daily ALLERGIES: No Known Allergies REVIEW OF SYMPTOMS: Review of Systems Constitutional: Negative for activity change, appetite change, chills, fatigue, fever and unexpected weight change. HENT: Negative for congestion, ear pain, nosebleeds, rhinorrhea, sinus pressure, sneezing, sore throat, trouble swallowing and voice change. Eyes: Negative for blurred vision, pain, discharge and visual disturbance. Respiratory: Negative for apnea, cough, chest tightness, shortness of breath and wheezing. Cardiovascular: Negative for chest pain, palpitations, orthopnea and leg swelling. Gastrointestinal: Negative for abdominal distention, abdominal pain, blood in stool, constipation, diarrhea, nausea and vomiting. Genitourinary: Negative for decreased urine volume, difficulty urinating, dysuria, flank pain and hematuria. Musculoskeletal: Negative for arthralgias, back pain, joint swelling and myalgias. Skin: Negative for color change, rash and wound. Neurological: Negative for dizziness, tremors, seizures, weakness, numbness and headaches. Psychiatric/Behavioral: Negative for agitation, decreased concentration, hallucinations, self-injury, sleep disturbance and suicidal ideas. The patient is not nervous/anxious. Hematological: Negative for adenopathy. Does not bruise/bleed easily. Endocrine: Positive for polydipsia and polyphagia. Negative for cold intolerance, heat intolerance and polyuria. Allergic/Immunologic: Negative for environmental allergies and food allergies. PAST MEDICAL HISTORY History reviewed. No pertinent past medical history. History reviewed. No pertinent surgical history. family history is not on file. OBJECTIVE: Visit Vitals BP 140/78 (BP Location: Left arm, Patient Position: Sitting, BP Cuff Size: Adult long) Pulse 60 Temp 98.5 F (Temporal) Resp 18 Ht 5' 8 Wt 169 lb 3.2 oz SpO2 100% BMI 25.73 kg/m Smoking Status Former BSA 1.92 m Physical Exam Vitals and nursing note reviewed. Constitutional: Appearance: Normal appearance. HENT: Head: Normocephalic. Right Ear: External ear normal. Left Ear: External ear normal. Nose: Nose normal. Mouth/Throat: Mouth: Mucous membranes are moist. Pharynx: Oropharynx is clear. Eyes: Extraocular Movements: Extraocular movements intact. Conjunctiva/sclera: Conjunctivae normal. Cardiovascular: Rate and Rhythm: Normal rate and regular rhythm. Pulses: Normal pulses. Heart sounds: Normal heart sounds. Pulmonary: Effort: Pulmonary effort is normal. Breath sounds: Normal breath sounds. Abdominal: General: Bowel sounds are normal. Palpations: Abdomen is soft. Musculoskeletal: Cervical back: Neck supple. Skin: General: Skin is warm and dry. Capillary Refill: Capillary refill takes 2 to 3 seconds. Neurological: General: No focal deficit present. Mental Status: He is alert. Psychiatric: Mood and Affect: Mood normal. Behavior: Behavior normal. Thought Content: Thought content normal. Judgment: Judgment normal. ASSESSMENT AND PLAN: Follow up in about 6 months (around 01/22/2025) for Recheck. Problem List Items Addressed This Visit Benign essential hypertension (CMS/HCC) Please check blood pressure daily and record DASH diet Limit caffeine Take medication as directed Contact office if chest pain, pressure, dizziness, shortness of breath, swelling legs Recommend slow position changes Chronic atrial fibrillation (HCC) (CMS/HCC) Continue with Eliquis, as well as lopressor Follows with cardiology DM w/o complication type II (CMS/HCC) - Primary Check blood sugars daily, notify if <70 or >200. Take medications (pills or insulin) as directed. Monitor for s/s of hypoglycemia (sweaty, dizziness, nausea, vomiting, or shakiness). Watch for increase in thirst, urination, or appetite. Inspect feet frequently monitoring for open wounds , and also recommend yearly eye exam. Pt should attempt to remain as physically active as chronic conditions allow, as well as trying to follow a diet low in carbohydrates, and simple sugars. A1c is 8.1%, needs to have tighter blood sugar control, check sugars Will check with insurance on dobbs of SGLT-2 Relevant Orders POCT glycosylated hemoglobin (Hb A1C) docked device (Completed) Hemoglobin A1c Obstructive sleep apnea syndrome Does not wear a machine GERD (gastroesophageal reflux disease) Recommendations: freq small meals, nothing to eat or drink at least 2 hours prior to bed, limit caffeine, alcohol, as well as spicy foods Meds to limit or avoid if possible: NSAIDS Elevate HOB if possible Takes meds as needed Anticoagulated Continue with eliquis for treatment of afib Other thrombophilia (CMS/HCC) Peripheral vascular disease, unspecified (CMS/HCC) Continue with blood pressure and diabetes control Also is on eliquis as well Legs feel fatigued Will order RAFA's Needs flu shot Relevant Orders Flu vaccine, trivalent, adjuvanted, PF ([id number]) (Fluad trivalent single dose syringe) (Completed) Associated Problem(s): Peripheral vascular disease, unspecified (CMS/HCC) Continue with blood pressure and diabetes control Also is on eliquis as well Legs feel fatigued Will order RAFA's Associated Problem(s): Anticoagulated Continue with eliquis for treatment of afib Associated Problem(s): DM w/o complication type II (CMS/HCC) Check blood sugars daily, notify if <70 or >200. Take medications (pills or insulin) as directed. Monitor for s/s of hypoglycemia (sweaty, dizziness, nausea, vomiting, or shakiness). Watch for increase in thirst, urination, or appetite. Inspect feet frequently monitoring for open wounds , and also recommend yearly eye exam. Pt should attempt to remain as physically active as chronic conditions allow, as well as trying to follow a diet low in carbohydrates, and simple sugars. A1c is 8.1%, needs to have tighter blood sugar control, check sugars Will check with insurance on dobbs of SGLT-2 Associated Problem(s): GERD (gastroesophageal reflux disease) Recommendations: freq small meals, nothing to eat or drink at least 2 hours prior to bed, limit caffeine, alcohol, as well as spicy foods Meds to limit or avoid if possible: NSAIDS Elevate HOB if possible Takes meds as needed Associated Problem(s): Chronic atrial fibrillation (HCC) (CMS/HCC) Continue with Eliquis, as well as lopressor Follows with cardiology Associated Problem(s): Benign essential hypertension (CMS/HCC) Please check blood pressure daily and record DASH diet Limit caffeine Take medication as directed Contact office if chest pain, pressure, dizziness, shortness of breath, swelling legs Recommend slow position changes documented in this encounter [facility] 07-25-2024 Instructions Daniela Mendoza NP - 07/25/2024 8:40 AM EST Check in insurance if Farxiga 5mg daily or Jardiance 10mg daily: see how much does this cost for 30 day or 90 day Will check vascular test to see about legs documented in this encounter [facility] 09-29-2023 Note [id number] 3- HTN , DM, Age Continue eliquis anticoagulation, denied bleeding tendencies Continue lopressor 50 mg bid- currently EKG shows in rhythm- Sinus bradycardia [facility] 09-29-2023 Note Continue lipitor 40 mg Script for annual labs provided [facility] 09-29-2023 Note Hypertension is well controlled Continue losartan, metoprolol [facility] 09-29-2023 Note [facility] CARDIOLOGY PROGR ESS NOTE [...] Script for annual labs provided Atrial fibrillation ([facility]) [id number]= 3- HTN, DM, Age Continue eliquis anticoagulation, denied bleeding tendencies Continue lopressor 50 mg bid- currently EKG shows in rhythm- Sinus bradycardia RTC 6months to [address] Mims- LAZARO [facility] 03-03-2022 Hospital Discharge instructions Patient Education 03/03/2022 09:53:00 Hematuria, Adult [...] Follow these instructions at home: Medicines Take apqz-rur-fbgltiq and prescription medicines only as told by [...] or the blood stops without treatment. Take bjnr-ibs-cvfclmv and prescription medicines only as told by your health care provider. Drink enough fluid to keep your urine clear or pale yellow. This information is not intended to replace advice given to you by your health care provider. Make sure you discuss any questions you have with your health care provider. Document Released: 08/30/2006 Document Revised: 01/24/2020 Document Reviewed: 10/02/2017 [employer] Patient Education 2020 [employer]. Follow Up Care 02/25/2022 09:04:37 With:Nick CHAVES, SHAHRZAD Palacios, URO Address: [address] [place] [address]- [phone] When: only if needed [facility] 02-25-2022 Hospital Discharge instructions Patient Education 02/25/2022 08:47:16 Hematuria, Adult [...] Follow these instructions at home: Medicines Take nfbn-aqt-hpthafu and prescription medicines only as told by [...] or the blood stops without treatment. Take vley-oii-wucovbp and prescription medicines only as told by your health care provider. Drink enough fluid to keep your urine clear or pale yellow. This information is not intended to replace advice given to you by your health care provider. Make sure you discuss any questions you have with your health care provider. Document Released: 08/30/2006 Document Revised: 01/24/2020 Document Reviewed: 10/02/2017 [employer] Patient Education 2019 [employer]. Follow Up Care 01/28/2022 12:08:00 With:Nick CHAVES, Milagro Meyer, URL, URO Address: When: Unknown [facility] Evaluation + Plan note Future Appointments Appointment Date:03/03/2022 09:30:00 AM Scheduled Provider:Milagro Romero MD Location:[facility] Appointment Type:URO Procedure 15 min Diagnostic Tests PendingUrine Cytology ([facility]) 02/25/22 [facility] Evaluation note Diagnosis Encounter for subsequent annual [...] Essential hypertension, benign documented in this encounter [facility] HealthcareEvaluation note* Diagnosis Encounter for subsequent annual wellness visit [...] Special screening for malignant neoplasm of prostate Type 2 diabetes mellitus without complication, without long-term current use of insulin (CMS/HCC)- Primary Other thrombophilia (CMS/HCC) Peripheral vascular disease, unspecified (CMS/HCC) Peripheral vascular disease, unspecified Obstructive sleep apnea syndrome Obstructive sleep apnea (adult) (pediatric) Benign essential hypertension (CMS/HCC) Essential hypertension, benign Chronic atrial fibrillation (HCC) (CMS/HCC) Atrial fibrillation Anticoagulated Encounter for long-term (current) use of anticoagulants Needs flu shot Need for prophylactic vaccination and inoculation against influenza Gastroesophageal reflux disease without esophagitis Esophageal reflux documented in this encounter [facility] HealthcareEvaluation note* Diagnosis Type 2 diabetes mellitus without complication, without long-term current use of insulin (CMS/HCC) documented in this encounter [facility] HealthcareEvaluation note* Diagnosis Encounter for subsequent annual wellness visit [...] Special screening for malignant neoplasm of prostate Type 2 diabetes mellitus without complication, without long-term current use of insulin (CMS/HCC)- Primary Other thrombophilia (CMS/HCC) Peripheral vascular disease, unspecified (CMS/HCC) Peripheral vascular disease, unspecified Obstructive sleep apnea syndrome Obstructive sleep apnea (adult) (pediatric) Benign essential hypertension (CMS/HCC) Essential hypertension, benign Chronic atrial fibrillation (HCC) (CMS/HCC) Atrial fibrillation Anticoagulated Encounter for long-term (current) use of anticoagulants Needs flu shot Need for prophylactic vaccination and inoculation against influenza Gastroesophageal reflux disease without esophagitis Esophageal reflux Chronic atrial fibrillation (HCC) (CMS/HCC) Atrial fibrillation Type 2 diabetes mellitus without complication, without long-term current use of insulin (CMS/HCC) documented in this encounter [facility] HealthcareEvaluation note* Diagnosis Encounter for subsequent annual wellness visit (AWV) in Medicare patient- Primary Mixed hyperlipidemia (CMS/HCC) Mixed hyperlipidemia Vitamin D deficiency Type 2 diabetes mellitus without complication, without long-term current use of insulin Gastroesophageal reflux disease without esophagitis Esophageal reflux Chronic atrial fibrillation (HCC) (CMS/HCC) Atrial fibrillation Benign essential hypertension (CMS/HCC) Essential hypertension, benign Screening for prostate cancer Special screening for malignant neoplasm of prostate Type 2 diabetes mellitus without complication, without long-term current use of insulin- Primary Other thrombophilia Peripheral vascular disease, unspecified (CMS/HCC) Peripheral vascular disease, unspecified Obstructive sleep apnea syndrome Obstructive sleep apnea (adult) (pediatric) Benign essential hypertension (CMS/HCC) Essential hypertension, benign Chronic atrial fibrillation (HCC) (CMS/HCC) Atrial fibrillation Anticoagulated Encounter for long-term (current) use of anticoagulants Needs flu shot Need for prophylactic vaccination and inoculation against influenza Gastroesophageal reflux disease without esophagitis Esophageal reflux Mixed hyperlipidemia (CMS/HCC) Mixed hyperlipidemia Chronic atrial fibrillation (HCC) (CMS/HCC) Atrial fibrillation Benign essential hypertension (CMS/HCC) Essential hypertension, benign documented in this encounter [facility] HealthcareEvaluation note* Diagnosis Encounter for subsequent annual wellness visit (AWV) in Medicare patient- Primary Mixed hyperlipidemia (CMS/HCC) Mixed hyperlipidemia Vitamin D deficiency Type 2 diabetes mellitus without complication, without long-term current use of insulin Gastroesophageal reflux disease without esophagitis Esophageal reflux Chronic atrial fibrillation (HCC) (CMS/HCC) Atrial fibrillation Benign essential hypertension (CMS/HCC) Essential hypertension, benign Screening for prostate cancer Special screening for malignant neoplasm of prostate Type 2 diabetes mellitus without complication, without long-term current use of insulin- Primary Other thrombophilia Peripheral vascular disease, unspecified (CMS/HCC) Peripheral vascular disease, unspecified Obstructive sleep apnea syndrome Obstructive sleep apnea (adult) (pediatric) Benign essential hypertension (CMS/HCC) Essential hypertension, benign Chronic atrial fibrillation (HCC) (CMS/HCC) Atrial fibrillation Anticoagulated Encounter for long-term (current) use of anticoagulants Needs flu shot Need for prophylactic vaccination and inoculation against influenza Gastroesophageal reflux disease without esophagitis Esophageal reflux Encounter for subsequent annual wellness visit (AWV) in Medicare patient- Primary Benign essential hypertension (CMS/HCC) Essential hypertension, benign Chronic atrial fibrillation (HCC) (CMS/HCC) Atrial fibrillation Type 2 diabetes mellitus without complication, without long-term current use of insulin Mixed hyperlipidemia (CMS/HCC) Mixed hyperlipidemia Screening for prostate cancer Special screening for malignant neoplasm of prostate Vitamin D deficiency Paroxysmal atrial fibrillation (CMS/HCC) Atrial fibrillation documented in this encounter [facility] Narrative No data available for this section [facility] progress note No data available for this section [facility] Summary Purpose Family History No Family History [...] section and content) DATE CREATED AUTHOR 02/08/2021 [facility] DATE CREATED AUTHOR AUTHOR'S ORGANIZ ATION 03/04/2022 [facility] DATE CREATED AUTHOR AUTHOR'S ORGANIZ ATION 07/20/2022 [facility] DATE CREATED AUTHOR AUTHOR'S ORGANIZ ATION 09/01/2024 [facility] DATE CREATED AUTHOR AUTHOR'S ORGANIZ ATION 01/31/2025 [facility] EPIC Care Team (unrecognized sect ion and content) Data Reporting Analyst Relationship Specialty Start Date End Date Daniela Mendoza NP [address] [place] [address] Nurse Practitioner Family Medicine 07/19/23 Data Reporting Analyst Relationship Specialty Start Date End Date Zeeshan Patel MD [address] [place] [address] PCP - General Family Medicine 07/25/24 Daniela Mendoza NP [address] [place] [phone] Nurse Practitioner Family Medicine 07/19/23 Data Reporting Analyst Relationship Specialty Start Date End Date Zeeshan Patel MD [address] [place] [phone] PCP - General Family Medicine 07/25/24 Daniela Mendoza NP [address] [place] [phone] Nurse Practitioner Family Medicine 07/19/23 Data Reporting Analyst Relationship Specialty Start Date End Date Zeeshan Patel MD [address] [place] [phone] PCP - General Family Medicine 07/25/24 Daniela Mendoza NP [address] [place] [phone] Nurse Practitioner Family Medicine 07/19/23 Data Reporting Analyst Relationship Specialty Start Date End Date Daniela Mendoza NP [address] [place] [phone] Nurse Practitioner Family Medicine 07/19/23 Data Reporting Analyst Relationship Specialty Start Date End Date Zeeshan Patel MD [address] [place] [phone] PCP - General Family Medicine 07/25/24 Daniela Mendoza NP [address] [place] [phone] Nurse Practitioner Family Medicine 07/19/23 Data Reporting Analyst Relationship Specialty Start Date End Date Zeeshan Patel MD [address] [place] [phone] PCP - General Family Medicine 07/25/24 Daniela Mendoza NP [address] [place] [phone] Nurse Practitioner Family Medicine 07/19/23 Data Reporting Analyst Relationship Specialty Start Date End Date Zeeshan Patel MD [address] [place] [phone] PCP - General Family Medicine 07/25/24 Daniela Mendoza NP [address] [place] [phone] Nurse Practitioner Family Medicine 07/19/23 Data Reporting Analyst Relationship Specialty Start Date End Date Zeeshan Patel MD [address] [place] [phone] PCP - General Family Medicine 07/25/24 Daniela Mendoza NP [address] [place] [phone] Nurse Practitioner Family Medicine 07/19/23 Reason for Visit (unrecogniz ed section and content) Reason Onset Date Comments Med Refill 06/12/2024 Reason Onset Date Comments Med Refill 10/03/2024 Reason Onset Date Comments Med Refill 01/01/2025 Reason Comments Medicare Annual Wellness Visit Initial FOR RECORDS PERTAINING TO PATIENTS WHO ARE [...] BE BASED ON THE PRIMARY CLINICAL RECORDS. [facility] [employer] [facility]. provides no warranty or guarantee of the accuracy or completeness of information in this document.
--- OUTSIDE RECORDS SUMMARY | 2025-03-06 06:44 | XMS_ITS | Clinical Summary ---
Author Organization [employer] s tem Address [id number] [address] [place] [address] Care Team Providers Care Horticulture Instructor Name Role Phone PhylliscelinadontrellDaniela Mark MIXED [employer]ST[employer] FARMER-OUTREACH REP Primary Care Provider Allergies No known active allergies Medications ELIQUIS 5 mg tablet Take 1 tablet by mouth 2 (two) times a day. 03/23/2022 Active aspirin 81 mg Take 1 tablet by mouth in the morning. Active atorvastatin (LIPITOR) 40 mg tablet Take 1 tablet by mouth in the morning. 01/19/2022 Active metFORMIN (GLUCOPHAGE) 1000 mg tablet Take 1 tablet by mouth in the morning and 1 tablet before bedtime. 01/14/2022 Active metoprolol tartrate (LOPRESSOR) 50 mg tablet Take 1 tablet by mouth in the morning and 1 tablet before bedtime. 01/19/2022 Active pioglitazone (ACTOS) 30 mg tablet Take 1 tablet by mouth in the morning. 02/11/2022 Active losartan (COZAAR) 100 mg tablet Take 100 mg by mouth in the morning. Active Active Problems No known active problems Family History Medical History Relation Name Comments Diabetes Father Pneumonia Mother Relation Name Status Comments Father Mother Social History Tobacco Use Types Packs/Day Years Used Date Smoking Tobacco: Former Cigarettes 1 15 1 5 - 1989 Smokeless Tobacco: Former Chew Alcohol Use Standard Drinks/Week Comments Not Currently 0 (1 standard drink = 0.6 oz pur e alcohol) Childcare Answer Date Recorded Childcare Unknown 02/22/2019 Employment Answer Date Recorded Employment Unknown 02/22/2019 Purpose - Life Answer Date Recorded Purpose and direction in life Unknown Sex and Gender Information Value Date Recorded Sex Assigned at Not on file Legal Sex Male 11:24 AM EDT Gender Identity Not on file Sexual Orientation Not on file Last Filed Vital Signs Vital Sign Reading Time Taken Comments Blood Pressure 120/80 05/22/2022 9:19 AM EDT Pulse 60 05/12/2022 1:59 PM EDT Temperature 36.3 C (97.3 F) 05/22/2022 9:19 AM EDT Respiratory Rate 12 05/12/2022 1:59 PM EDT Oxygen Saturation 95% 05/12/2022 1:59 PM EDT Inhaled Oxygen Concentration - - Weight 75.6 kg (166 lb 9.6 oz) 05/22/2022 9:19 A M EDT Height 172.7 cm (5' 8 ) 05/22/2022 9:19 AM EDT Body Mass Index 25.33 05/22/2022 9:19 AM EDT Plan of Treatment Health Maintenance Due Date Last Done Comments Depression Screening 1969 Tobacco Screening 1967 DTaP,Tdap and Td Vaccines (1 - Tdap) 01/10/1976 Zoster (Shingles) Vaccine (1 of 2) 2007 Abdominal Aortic Aneurysm (AAA) Screen 2022 Fall Risk Screening 2022 Adult BMI Screening 05/22/2023 05/22/2022 Colonoscopy 04/13/2025 04/13/2015 Influenza Vaccine 05/14/2025 Medical Devices Not on file Insurance MEDICARE [employer] Advance Directives Documents on File Type Date Recorded Patient [employer] Worker Expl anation Durable Power of Security Sergeant 05/19/2022 5:11 AM Care Teams Horticulture Instructor Relationship Specialty Start Date End Date Daniela Mendoza, M[employer]ST[employer] FARMER-OUTREACH REP PCP - General Nurse Practitioner 03/23/22
--- OUTSIDE RECORDS SUMMARY | 2025-03-06 06:44 | XMS_ITS | Encounter Summary ---
Author Organization [facility] Address [address] [place] [address] Care Team Providers Care Fast Food Assistant Restaurant Manager Name Role Phone Daniela Mendoza MD Primary Care Provider [phone] Reason for Visit * Reason Comments Med Refill Encounter Details Date Type Department Care Team (Late st Contact Info) Description 10/13/2023 Refill [facility] [address] [place] [address] Lupe Pompa MD [address] [facility] [address] [place] [address] PAF (paroxysmal atrial fibrillation) (CMS/HCC) Social History Tobacco Use Types Packs/Day Years Used Date Smoking Tobacco: Former Cigarettes Smokeless Tobacco: Never Alcohol Use Standard Drinks/Week Comments Not Currently 0 (1 standard drink = 0.6 oz pur e alcohol) Sex and Gender Information Value Date Recorded Sex Assigned at Not on file Legal Sex Male 9:17 PM EDT Gender Identity Not on file Sexual Orientation Not on file documented as of this encounter Plan of Treatment Upcoming Encounters Date Type Department Care Team (Late st Contact Info) Description 03/20/2025 1:00 PM EDT Office Visit [facility] [address] [place] [address] Arnaud Mims MD [address] [place] [address] documented as of this encounter Visit Diagnoses Diagnosis PAF (paroxysmal atrial fibrillation) (CMS/FORMERLY [facility]) Atrial fibrillation documented in this encounter Care Teams Fast Food Assistant Restaurant Manager Relationship Specialty Start Date End Date Daniela Mendoza MD [address] [place] [address] PCP - General 09/15/22 documented as of this encounter
--- OUTSIDE RECORDS SUMMARY | 2025-03-06 06:44 | XMS_ITS | Encounter Summary ---
Author Organization [facility] Address [address] [facility] [place] [address] Care Team Providers Care Oil Dipper Name Role Phone Daniela Mendoza NP Unavailable [phone] Zeeshan Patel MD Primary Care Provider Encounter Details Date Type Department Care Team (Late st Contact Info) Description 09/10/2023 Abstract [facility] [address] [place] [address] Daniela Mendoza NP [address] [place] [address] Social History Tobacco Use Types Packs/Day Years Used Date Smoking Tobacco: Never Assessed Sex and Gender Information Value Date Recorded Sex Assigned at Not on file Legal Sex Male 6:55 PM EDT Gender Identity Not on file Sexual Orientation Not on file documented as of this encounter Plan of Treatment Upcoming Encounters Date Type Department Care Team (Late st Contact Info) Description 08/02/2025 9:00 AM EST Office Visit [facility] [address] [place] [phone] Daniela Mendoza NP [address] [place] [phone] 02/05/2026 10:00 AM EDT Office Visit [facility] [address] [place] [phone] Daniela Mendoza NP [address] [place] [phone] documented as of this encounter Visit Diagnoses Not on filedocumented in this encounter Care Teams Oil Dipper Relationship Specialty Start Date End Date Zeeshan Patel MD [address] [place] [address] PCP - General Family Medicine 07/25/24 Daniela Mendoza NP [address] [place] [address] Nurse Practitioner Family Medicine 07/19/23 documented as of this encounter
--- OUTSIDE RECORDS SUMMARY | 2025-03-06 06:44 | XMS_ITS | Referral Summary ---
Author Organization [facility] Address [address] [place] [address] Care Team Providers Care Guest Services Attendant Name Role Phone Daniela Mendoza MD Primary Care Provider [phone] Allergies No known active allergies Medications aspirin 81 mg capsule Take by mouth. 2 Active atorvastatin (Lipitor) 40 mg tablet Take 40 mg by mouth at bedtime. 2 Active losartan (Cozaar) 50 mg tablet Take 50 mg by mouth in the morning and at bedtime. 2 Active metFORMIN (Glucophage) 1,000 mg tablet Take 1,000 mg by mouth with breakfast and with evening meal. 2 Active pioglitazone (Actos) 45 mg tablet Take 45 mg by mouth in the morning. Active metoprolol tartrate (Lopressor) 50 mg tablet Take 50 mg by mouth in the morning and at bedtime. Active Eliquis 5 mg tabletIndicatio ns:PAF (paroxysmal atrial fibrillation) (CMS/HCC) TAKE 1 TABLET BY MOUTH EVERY MORNING AND TAKE 1 TABLET BY MOUTH AT BEDTIME 180 tablet 3 5 Active Active Problems Problem Noted Date Diagnosed Date Needs flu shot 07/25/2024 Other thrombophilia 07/25/2024 Peripheral vascular disease, unspecified 024 Anticoagulated 01/25/2024 Asymptomatic microscopic hematuria 01/25/2024 Encounter for subsequent [facility] wellness visit (AWV) in Medicare patient 01/25/2024 Screening for prostate cancer 01/25/2024 Overview (08/29/2024): 02/25/24 0.16 Hypercalcemia 01/17/2024 Vitamin D deficiency 01/17/2024 DM w/o complication type II 01/06/2024 GERD (gastroesophageal reflux disease) 8 Obstructive sleep apnea syndrome 04/09/2008 Primary hypertension Assessment & Plan (09/29/2023 10:01 AM EST): Hypertension is well controlled Continue losartan, metoprolol Mixed hyperlipidemia Assessment & Plan (09/29/2023 10:02 AM EST): Continue lipitor 40 mg Script for annual labs provided Atrial fibrillation Assessment & Plan (09/29/2023 11:09 AM EST): [id number]= 3- HTN, DM, Age Continue eliquis anticoagulation, denied bleeding tendencies Continue lopressor 50 mg bid- currently EKG shows in rhythm- Sinus bradycardia Social History Tobacco Use Types Packs/Day Years Used Date Smoking Tobacco: Former Cigarettes Smokeless Tobacco: Never Tobacco Cessation:Counseling Given: Not Answered Alcohol Use Standard Drinks/Week Comments Not Currently 0 (1 standard drink = 0.6 oz pur e alcohol) [place] Safety & Environment Answer Date Rec orded Fear of Current or Ex-Partner Not on file Emotionally Abused Not on file 11/04/2023 Physically Abused Not on file 11/04/2023 Sexually Abused Not on file 11/04/2023 Physically or Sexually Abused Not on file Sex and Gender Information Value Date Recorded Sex Assigned at Not on file Legal Sex Male 9:17 PM EDT Gender Identity Not on file Sexual Orientation Not on file Last Filed Vital Signs Vital Sign Reading Time Taken Comments Blood Pressure 140/78 08/29/2024 9:43 AM EST Pulse 60 08/29/2024 9:43 AM EST Temperature - - Respiratory Rate 12 09/29/2023 9:35 AM EST Oxygen Saturation 96% 08/29/2024 9:43 AM EST Inhaled Oxygen Concentration - - Weight 75.3 kg (166 lb) 08/29/2024 9:43 AM EST Height 172.7 cm (5' 8 ) 08/29/2024 9:43 AM EST Body Mass Index 25.24 08/29/2024 9:43 AM EST Plan of Treatment Upcoming Encounters Date Type Department Care Team (Late st Contact Info) Description 03/20/2025 1:00 PM EDT Office Visit [facility] [address] [place] [phone] Arnaud Mims MD [address] [place] [phone] Insurance MEDICARE [employer] Care Teams Guest Services Attendant Relationship Specialty Start Date End Date Daniela Mendoza MD [address] [place] [address] PCP - General 09/15/22
--- OUTSIDE RECORDS SUMMARY | 2025-03-06 06:44 | XMS_ITS | Clinical Summary ---
Author Organization [facility] Address [address] [place] [address] Care Team Providers Care B2B Sales Executive Name Role Phone Daniela Mendoza MD Primary Care Provider [phone] Allergies No known active allergies Medications aspirin [...] microscopic hematuria 01/25/2024 Encounter for subsequent [facility] wellness visit (AWV) in Medicare patient 01/25/2024 [...] Assessment & Plan (09/29/2023 11:09 AM EST): [id number]= 3- HTN, DM, Age Continue eliquis anticoagulation, denied bleeding tendencies Continue lopressor 50 mg bid- currently EKG shows in rhythm- Sinus bradycardia Family History Medical History Relation Name Comments Diabetes Father Coronary artery disease Mother Hyperlipidemia Mother Hypertension Mother Relation Name Status Comments Father Mother [...] Description 03/20/2025 1:00 PM EDT Office Visit [facility] [address] [place] [address] Arnaud Mims MD [address] [place] [phone] Health Maintenance Due Date Last Done Comments CT Colonography 1957 Diabetes: Hemoglobin A1C 1957 FIT-DNA 1957 FIT 1957 FOBT 1955 Medicare Annual Wellness (AWV) 1957 Sigmoidoscopy 1957 Diabetes: Retinopathy Screening 1967 Depression Screening 1969 Diabetes: Urine Protein Screening 01/10/1976 Adult Tetanus 09/13/2015 09/13/2005, 09/13/2005 Fall Risk Screening 2022 COVID-19 Vaccine ( season) 2024 07/09/2022, 07/28/2021, 07/28/2021, Additional history exists Colonoscopy 04/17/2025 04/17/2015 Colorectal Cancer Screening 04/17/2025 Pneumococcal Vaccine: 50+ Years Completed 10/22/2022, 06/05/2014 Zoster Vaccines Completed 01/21/2023, 10/22/2022 Influenza Vaccine Completed 07/25/2024, , 07/11/2015, Additional history exists HIB Vaccines Aged Out No longer eligi ble based on patient's age to complete this topic HPV Vaccines Aged Out No longer eligi ble based on patient's age to complete this topic IPV Vaccines Aged Out No longer eligi ble based on patient's age to complete this topic Meningococcal B Vaccine Aged Out No l onger eligible based on patient's age to complete this topic Meningococcal Vaccine Aged Out No juan suresh eligible based on patient's age to complete this topic Rotavirus Vaccines Aged Out No longer eligible based on patient's age to complete this topic Insurance MEDICARE [employer] Care Teams B2B Sales Executive Relationship Specialty Start Date End Date Daniela Mendoza MD [address] [place] [address] PCP - General 09/15/22
--- OUTSIDE RECORDS SUMMARY | 2025-03-06 06:44 | XMS_ITS | Clinical Summary ---
Author Organization [facility] Address [address] [place] [address] Care Team Providers Care Metal Drawer Name Role Phone Daniela Mendoza NP Unavailable [phone] Zeeshan Patel MD Primary Care Provider [phone] Allergies No known active allergies Medications apixaban (Eliquis) 5 MG tablet Take 5 mg by mouth in the morning and 5 mg in the evening. 4 Active losartan (Cozaar) 100 MG tabletIndications:B enign essential hypertension Take 1 tablet (100 mg) by mouth Daily 90 tablet 1 4 Active pioglitazone (Actos) 45 MG tabletIndications:T ype 2 diabetes mellitus without complication, without long-term current use of insulin (HCC) Take 1 tablet (45 mg) by mouth Daily 90 tablet 1 4 Active metFORMIN (Glucophage) 1000 MG tabletIndications:T ype 2 diabetes mellitus without complication, without long-term current use of insulin (HCC) Take 1 tablet (1,000 mg) by mouth in the morning and 1 tablet (1,000 mg) in the evening. Take with meals. 180 tablet 1 5 Active atorvastatin (Lipitor) 40 MG tabletIndications:M ixed hyperlipidemia Take 1 tablet (40 mg) by mouth at bedtime 90 tablet 1 5 04/02/20 25 Active metoprolol tartrate (Lopressor) 50 MG tabletIndications:C hronic atrial fibrillation (HCC),Benign essential hypertension Take 1 tablet (50 mg) by mouth in the morning and 1 tablet (50 mg) before bedtime. 180 tablet 1 5 04/02/20 25 Active aspirin 81 MG EC tablet Take 81 mg by mouth Daily Active Active Problems Problem Noted Date Diagnosed Date Colon cancer screening 01/30/2025 Paroxysmal atrial fibrillation 01/30/2025 Assessment & Plan (01/30/2025 11:32 AM EDT): On eliquis, cardiology is talking about taking him off eliquis and placing loop recorder Cont b keysha Other thrombophilia ([facility]) 07/25/2024 Peripheral vascular disease, unspecified 024 Assessment & Plan (07/25/2024 9:31 AM EST): Continue with blood pressure and diabetes control Also is on eliquis as well Legs feel fatigued Will order RAFA's Needs flu shot 07/25/2024 Screening for prostate cancer 01/25/2024 Overview (02/25/2024): 02/25/24 0.16 Anticoagulated 01/25/2024 Assessment & Plan (07/25/2024 6:24 AM EST): Continue with eliquis for treatment of afib Asymptomatic microscopic hematuria 01/25/2024 Encounter for subsequent [facility] wellness visit (AWV) in Medicare patient 01/25/2024 Assessment & Plan (01/30/2025 6:19 AM EDT): Reviewed Ht/Wt/BMI Recommend eye exam yearly Recommend dental exams twice a year Balance work/leisure activities Exercises is recommended most days of the week (appropriate as chronic conditions allow) Follow up yearly and prn Assessment & Plan (01/25/2024 11:03 AM EDT): Reviewed Ht/Wt/BMI Recommend eye exam yearly Recommend dental exams twice a year Balance work/leisure activities Exercises is recommended most days of the week (appropriate as chronic conditions allow) Follow up yearly and prn Vitamin D deficiency 01/17/2024 Assessment & Plan (01/30/2025 6:20 AM EDT): Check labs Hypercalcemia 01/17/2024 Benign essential hypertension 01/06/2024 Overview (01/06/2024): Last Assessment & Plan: Hypertension is well controlled Continue losartan, metoprolol Assessment & Plan (01/30/2025 6:17 AM EDT): Please check blood pressure daily and record DASH diet Limit caffeine Take medication as directed Contact office if chest pain, pressure, dizziness, shortness of breath, swelling legs Recommend slow position changes Assessment & Plan (07/25/2024 6:23 AM EST): Please check blood pressure daily and record DASH diet Limit caffeine Take medication as directed Contact office if chest pain, pressure, dizziness, shortness of breath, swelling legs Recommend slow position changes Assessment & Plan (01/25/2024 10:57 AM EDT): Stable cont losartan and metoprolol Check labs DM w/o complication type II 01/06/2024 Assessment & Plan (01/30/2025 11:33 AM EDT): Check blood sugars daily, notify if <70 [...] be a factor, will think about it Assessment & Plan (07/25/2024 9:56 AM EST): Check blood sugars daily, notify if <70 [...] check with insurance on dobbs of SGLT-2 Assessment & Plan (01/25/2024 10:58 AM EDT): Check blood sugars daily, notify if <70 [...] diet low in carbohydrates, and simple sugars. Check labs Mixed hyperlipidemia 01/06/2024 Overview (01/06/2024): Last Assessment & Plan: Continue lipitor 40 mg Script for annual labs provided Assessment & Plan (01/30/2025 6:20 AM EDT): On statin therapy Check labs yearly and prn dose changes Obstructive sleep apnea syndrome 04/09/2008 Assessment & Plan (07/25/2024 9:31 AM EST): Does not wear a machine GERD (gastroesophageal reflux disease) 8 Assessment & Plan (07/25/2024 9:32 AM EST): Recommendations: freq small meals, nothing to eat or drink at least 2 hours prior to bed, limit caffeine, alcohol, as well as spicy foods Meds to limit or avoid if possible: NSAIDS Elevate HOB if possible Takes meds as needed Resolved Problems Problem Noted Date Diagnosed Date Resolved Date Chronic atrial fibrillation 01/06/2024 01/30/2025 Overview (01/06/2024): Last Assessment & Plan: [id number]= 3- HTN, DM, Age Continue eliquis anticoagulation, denied bleeding tendencies Continue lopressor 50 mg bid- currently EKG shows in rhythm- Sinus bradycardia Assessment & Plan (01/30/2025 6:17 AM EDT): Continue with Eliquis, as well as lopressor Follows with cardiology Assessment & Plan (07/25/2024 6:23 AM EST): Continue with Eliquis, as well as lopressor Follows with cardiology Assessment & Plan (01/25/2024 10:57 AM EDT): Cont w b keysha, and eliquis Check labs Continue with cardiology Encounters Date Type Department Care Team Description 01/30/2025 10:00 AM EDT Office Visit [facility] [address] [place] [address] Daniela Mendoza NP Encounter for subsequent annual wellness visit (AWV) in Medicare patient (Primary Dx); Benign essential hypertension ; Chronic atrial fibrillation (HCC); Type 2 diabetes mellitus without complication, without long-term current use of insulin (HCC); Mixed hyperlipidemia ; Screening for prostate cancer; Vitamin D deficiency; Paroxysmal atrial fibrillation (HCC) 01/30/2025 Bamboo flowsheet [facility] [address] [place] [address] Daniela Mendoza NP 01/24/2025 Travel 01/01/2025 Refill [facility] [address] [place] [address] Zeeshan Patel MD Mixed hyperlipidemia ; Chronic atrial fibrillation (HCC); Benign essential hypertension from Last 3 Months Immunizations Immunization Administration Dates Next Due Influenza Whole 07/14/2011 Influenza, High-dose Seasona l, Quadrivalent, Preservative Free 07/21/2023 Influenza, seasonal, injectable 06/18/2015 Influenza, seasonal, injecta ble, preservative free 07/11/2015,06/05/2014,06/27/2013 Influenza, seasonal, intrade rmal, preservative free 09/09/2012 Influenza, trivalent, adjuvanted 07/25/2024 Jane SARS-CoV-2 07/28/2021,11/20/2020 Pfizer SARS-CoV-2 Vaccination 5-11 y.o. 07/28/20 21,11/20/2020 Pneumococcal Conjugate PCV 20 10/22/2022 Pneumococcal Polysaccharide PPSV23 06/05/2014 Td (adult), 5 Lf tetanus tox oid, preservative free, adsorbed 09/13/2005 Tdap 09/13/2005 Zoster, Recombinant 01/21/2023,10/22/2022 Social History Tobacco Use Types Packs/Day Years Used Date Smoking Tobacco: Former Cigarettes Q uit: 1989 Passive Smoke Exposure: Never Smokeless Tobacco: Never Tobacco Cessation:Counseling Given: Not Answered Alcohol Use Standard Drinks/Week Comments Never 0 (1 standard drink = 0.6 oz pur e alcohol) B1300 Health Literacy Answer Date Recor ded How often do you need to hav e someone help you when you read instructions, pamphlets, or other written material from your doctor or pharmacy? Never 01/24/2025 Humiliation, Afraid, Rape, and Kick questionnair e Answer Date Recorded Within the last year, have y ou been afraid of your partner or ex-partner? No 01/24/2025 Within the last year, have y ou been humiliated or emotionally abused in other ways by your partner or ex-partner? No Within the last year, have y ou been kicked, hit, slapped, or otherwise physically hurt by your partner or ex-partner? No 01/24/2025 Within the last year, have y ou been raped or forced to have any kind of sexual activity by your partner or ex-partner? No 01/24/2025 Social Connection and Isolat ion Panel [NHANES] Answer Date Recorded In a typical week, how many times do you talk on the phone with family, friends, or neighbors? Once a week 01/24/2025 How often do you get togethe r with friends or relatives? Patient declined 01/24/2025 How often do you attend [facility] or mandaeism services? More than 4 times per year 01/24/2025 Do you belong to any clubs o r organizations such as jew groups, unions, fraternal or athletic groups, or school groups? No 01/24/2025 How often do you attend meet ings of the clubs or organizations you belong to? Never 01/24/2025 Are you , , di vorced, , never , or living with a partner? 01/24/2025 AUDIT-C Answer Date Recorded Q1: How often do you have a drink containing alcohol? Never 01/24/2025 Q2: How many drinks containi ng alcohol do you have on a typical day when you are drinking? Patient does not drink Q3: How often do you have si x or more drinks on one occasion? Never 01/24/2025 Overall Financial Resource Strain (CARDIA) Answe r Date Recorded How hard is it for you to pa y for the very basics like food, housing, medical care, and heating? Patient declined 01/24/2025 PHQ-2 Answer Date Recorded Patient Health Questionnaire-2 Score 0 01/30/2025 Hunger Vital Sign Answer Date Recorded Within the past 12 months, y ou worried that your food would run out before you got the money to buy more. Patient declined Within the past 12 months, t he food you bought just didn't last and you didn't have money to get more. Patient declined PRAPARE - Transportation Answer Date Re corded In the past 12 months, has l ack of transportation kept you from medical appointments or from getting medications? No 01/11 In the past 12 months, has l ack of transportation kept you from meetings, work, or from getting things needed for daily living? No 01/24/2025 Housing Stability Vital Sign Answer Fabricio e Recorded In the last 12 months, was t here a time when you were not able to pay the mortgage or rent on time? No 01/24/2025 Number of Times Moved in the Last Year Not on fi le 01/24/2025 At any time in the past 12 m [facility], were you homeless or living in a care home (including now)? No 01/24/2025 Sex and Gender Information Value Date Recorded Sex Assigned at Not on file Legal Sex Male 6:55 PM EDT Gender Identity Not on file Sexual Orientation Not on file Last Filed Vital Signs Vital Sign Reading Time Taken Comments Blood Pressure 124/78 01/30/2025 10:22 AM EDT Pulse 57 01/30/2025 10:22 AM EDT Temperature 36.9 C (98.5 F) 01/30/2025 10:22 AM EDT Respiratory Rate 18 01/30/2025 10:2 2 AM EDT Oxygen Saturation 97% 01/30/2025 10: 22 AM EDT Inhaled Oxygen Concentration - - Weight 76.1 kg (167 lb 12.8 oz) 025 10:22 AM EDT Height 172.7 cm (5' 8 ) 07/25/2024 8:32 AM EST Body Mass Index 25.51 07/25/2024 8:32 AM EST Plan of Treatment Upcoming Encounters Date Type Department Care Team (Late st Contact Info) Description 08/02/2025 9:00 AM EST Office Visit [facility] [address] [place] [address] Daniela Mendoza NP [address] [place] [address] 02/05/2026 10:00 AM EDT Office Visit [facility] [address] [place] [address] Daniela Mendoza NP [address] [place] [address] Health Maintenance Due Date Last Done Comments CT Colonography 1957 FIT-DNA 1957 FIT 1957 FOBT 1957 Sigmoidoscopy 1957 Diabetes: Retinopathy Screening 1967 Diabetes: Urine Protein Screening 02/24/2025 024 Colonoscopy 04/17/2025 04/17/2015 Colorectal Cancer Screening 04/17/2025 Diabetes: Hemoglobin A1C 05/02/2025 01/30/2025, 07/14 Medicare Annual Wellness (AWV) 01/30/2026 0 01/30/2025, 01/30/2025, 01/25/2024 Pneumococcal Vaccine: 65+ Years Completed , 06/05/2014 Influenza Vaccine Completed 07/25/2024, , 07/11/2015, Additional history exists Procedures Procedure Name Priority Date/Time Associated Diagnosis Comments POCT GLYCOSYLATED HEMOGLOBIN (HGB A1C) Routine 01/30/2025 10:41 AM EDT Type 2 diabetes mellitus without complication, without long-term current use of insulin (HCC) COLONOSCOPY Routine 04/17/2015 from Last 3 Months or Most Recently Relevant to Health Maintenance Results * (ABNORMAL) POCT glycosylated hemoglobin (Hb A1C) docked device (01/30/2025 10:41 AM EDT) Hemoglobin A1C 7.8 Blood Venous blood specimen / Unknown 01/30/2025 10:41 AM EDT us Daniela Mendoza NP POINT OF CARE TEST ENTER/EDIT O RDERABLES Final Result * Colonoscopy (04/17/2015) Anatomical Region Laterality Modality Endoscopy 04/17/2015 Narrative 04/17/2015 12:00 AM EDT PERFORMED AT [facility] LOCATION:[facility] Op Procedure Note CONVERSION, GENERIC - 01/28/2023 PERFORMED AT [facility] LOCATION:[facility] Op us Radha Jameson MD ENDOSCOPY PROCEDURE ORDERABLE S Final Result from Last 3 Months or Most Recently Relevant to Health Maintenance Insurance MEDICARE [employer] Care Teams Metal Drawer Relationship Specialty Start Date End Date Zeeshan Patel MD [address] [place] [phone] PCP - General Family Medicine 07/25/24 Daniela Mendoza NP [address] [place] [address] Nurse Practitioner Family Medicine 07/19/23
[2025-03-06 07:06] LABS: Basophils Absolute Auto 0.1 10^3/uL (0.0-0.1); Basophils Percent Auto 0.9 % (0.2-2.0); Eosinophils Absolute Auto 0.3 10^3/uL (0.0-0.7); Eosinophils Percent Auto 3.2 % (0.9-7.0); Hematocrit 44.7 % (42.0-54.0); Immature Granulocytes Abs Auto 0.02 10^3/uL (0.00-0.03); Immature Granulocytes Pct Auto 0.2 % (0.0-0.5); Lymphocytes Absolute Auto 2.8 10^3/uL (1.2-3.8); Lymphocytes Percent Auto 34.9 % (20.5-60.0); Mean Corpuscular HGB Conc 33.6 g/dL (29.9-35.2); Mean Corpuscular Hemoglobin 30.7 pg (25.9-34.0); Mean Corpuscular Volume 91.6 fL (80.0-94.0); Mean Platelet Volume 9.5 fL (9.5-13.5); Monocytes Absolute Auto 0.7 10^3/uL (0.3-0.8); Monocytes Percent Auto 8.7 % (1.7-12.0); Neutrophils Absolute Auto 4.2 10^3/uL (1.4-6.5); Neutrophils Percent Auto 52.1 % (43.0-75.0); Platelet Count 273 10^3/uL (150-450); Red Blood Count 4.88 10^6/uL (4.70-6.10); Red Cell Distribution Width 12.3 % (11.0-15.0); White Blood Count 8.1 10^3/uL (4.0-11.0)
[2025-03-06 07:24] LABS: Microalbumin Urine Random <1.3 mg/dL (<=30.0)
[2025-03-06 07:30] LABS: Alanine Aminotransferase 39 U/L (16-63); Albumin Globulin Ratio 1.3; Alkaline Phosphatase 98 U/L (46-116); Anion Gap 11.4; Aspartate Amino Transferase 19 U/L (15-37); BUN Creatinine Ratio 16.2; Bilirubin Total 0.6 mg/dL (0.2-1.0); Calcium 9.6 mg/dL (8.5-10.1); Chloride 106 mmol/L (98-107); Chol HDL Ratio 2.7; Cholesterol 117 mg/dL (<=200); Estimated GFR (African America >60 (>=60 mL/min/1.73m^2); Estimated GFR (Non-African Ame 52 (>=60 mL/min/1.73m^2); Globulin 3.2 g/dL; Glucose 167 mg/dL (74-106); HDL Cholesterol 44 mg/dL (40-60); LDL Cholesterol Calculated 47.2 mg/dL; Potassium 4.4 mmol/L (3.5-5.1); Sodium 143 mmol/L (136-145); Total Protein 7.2 g/dL (6.4-8.2); Triglycerides 129 mg/dL (<=150); VLDL CHOLESTEROL 25.8 mg/dL
[2025-03-06 08:18] LABS: Bilirubin Urine NEGATIVE (NEGATIVE); Blood Urine TRACE-I (NEGATIVE); Clarity Urine CLEAR (CLEAR); Color Urine LT. YELLOW (YELLOW); Glucose Urine UA NEGATIVE (NEGATIVE); Ketones Urine NEGATIVE (NEGATIVE); Leukocyte Esterase Urine NEGATIVE (NEGATIVE); Nitrite Urine NEGATIVE (NEGATIVE); Protein Urine NEGATIVE (NEG/TRACE); Specific Gravity Urine 1.025 (1.005-1.025); Urobilinogen Urine 0.2 EU/dL (0.2-1.0)
[2025-03-06 08:21] LABS: Urine Microscopic Indicated YES
[2025-03-06 08:26] LABS: Bacteria Urine TRACE #/HPF (NONE SEEN); Cast Seen? NONE SEEN #/LPF (NONE SEEN); Crystals Seen? None Seen #/HPF (None Seen); Mucus Urine SMALL (NONE SEEN); RBC Urine 0-2 #/HPF (0-2); Squamous Epithelial Cell Urine RARE #/LPF (NONE/RARE); WBC Urine NONE SEEN #/HPF (NONE SEEN)
[2025-03-06 08:58] LABS: Prostate Specific Antigen Scrn 0.15 ng/mL (<=4.00)
== END 2025-03-06 06:40 | disposition home or self-care (01) ==
LOC: LAB 06:41
PROVIDERS: PCP Nurse Practitioner; Visit Provider Nurse Practitioner
DX: E78.2 Mixed hyperlipidemia (principal); I10 Essential (primary) hypertension; Z12.5 Encounter for screening for malignant neoplasm of prostate; I48.20 Chronic atrial fibrillation, unspecified; E11.9 Type 2 diabetes mellitus without complications; E55.9 Vitamin D deficiency, unspecified
CPT/HCPCS: 36415; 80053; 80061; 81001; 82043; 82306; 82570; 85025; G0103

== ENCOUNTER 2025-08-20 06:46 | Outpatient (OUT) | payer MEDICARE, SELFPAY ==
--- OUTSIDE RECORDS SUMMARY | 2025-08-20 06:50 | XMS_ITS | CCD ---
Author Organization [facility] Care Team Providers Care Fast Food Worker Name Role Phone CANDIDO BLOOD Admitting Unavailable CANDIDO BLOOD Attending Unavailable AICHHOLZ, DANIELA Primary Care Unavailable AICHHOLZ, DANIELA Referring Unavailable AICHHOLZ, DANIELA J Primary Care Physician [phone] MIGNON, DR ELIZABETH Justin Admitting Unavailabl e MIGNON, DR ELIZABETH Justin Attending Unavailabl e AICHHOLZ, BASEBALL PITCHER DANIELA Primary Care Unavailable DR ELIZABETH CROW Consulting Unavailscot LONGORIA, DR ENID Josue Consulting Unavailable DR PEÑA BRONSON Consulting Unavailable AICHHOLZ, BASEBALL PITCHER DANIELA Admitting Unavailable AICHHOLZ, BASEBALL PITCHER DANIELA Attending Unavailable AICHHOLZ, BASEBALL PITCHER DANIELA Primary Care Unavailable AICHHOLZ, BASEBALL PITCHER DANIELA Consulting Unavailable AICHHOLZ, BASEBALL PITCHER DANIELA Admitting Unavailable AICHHOLZ, BASEBALL PITCHER DANIELA Attending Unavailable AICHHOLZ, BASEBALL PITCHER DANIELA Primary Care Unavailable AICHHOLZ, BASEBALL PITCHER DANIELA Consulting Unavailable AICHHOLZ, BASEBALL PITCHER DANIELA Admitting Unavailable AICHHOLZ, BASEBALL PITCHER DANIELA Attending Unavailable AICHHOLZ, BASEBALL PITCHER DANIELA Primary Care Unavailable DR ENID LONGORIA V Consulting Unavailable AICHHOLZ, BASEBALL PITCHER DANIELA Consulting Unavailable LUE ., MILAGRO M Admitting Unavailable LUE ., MILAGRO M Attending Unavailable AICHHOLZ, BASEBALL PITCHER DANIELA Primary Care Unavailable LUE ., MILAGRO M Consulting Unavailable KRISTOFER ALLEN Consulting Unavailable AICHHOLZ, BASEBALL PITCHER DANIELA Admitting Unavailable AICHHOLZ, BASEBALL PITCHER DANIELA Attending Unavailable AICHHOLZ, BASEBALL PITCHER DANIELA Primary Care Unavailable DR ENID LONGORIA V Consulting Unavailable AICHHOLZ, BASEBALL PITCHER DANIELA Consulting Unavailable LUE ., MILAGRO M Consulting Unavailable Aichholz CREDENTIALS SPECIALIST, Daniela Unavailable Jorge CHAVES, Zeeshan Primary Care Provider DANIELA MENDOZA Attending Unavailable DANIELA MENDOZA Attending Unavailable DAVIS BAIG Attending Unavailable DAVIS BAIG Attending Unavailable Reji GAYTAN, Daniela Unavailable Zeeshan Patel MD Primary Care Provider Medications Current Medications MedicationDrug Class(es)DatesSig (Normalized)Sig (Original)apixaban 5 mg oral tablet (15 sources)Factor Xa InhibitorStart: 10-13-2023 End: 44-06-3182oxna 1 tablet by mouth in the morningapixaban (Eliquis) 5 MG tablet Take 5 mg by mouth in the morning and 5 mg in the evening. 10/13/2023 ActiveStart: 22-44-0862Nxdvsxx 5 mg oral tablet Refills(s) 0 Start Date: 02/25/22 Status: Orderedatorvastatin 40 mg oral tablet (16 sources)HMG-CoA Reductase InhibitorStart: 04-05-2024 End: 65-89-9976ksju 1 tablet by mouth at bedtimeatorvastatin (Lipitor) 40 MG tablet Indications: Mixed hyperlipidemia Take 1 tablet (40 mg) by mouth at bedtime 90 tablet 1 01/02/2025 04/02/2025 ActiveStart: 03-41-6632zbvctzifygwi 40 mg Tab Refills(s) 0 Start Date: 02/25/22 Status: Orderedlosartan potassium 100 mg oral tablet (16 sources)Angiotensin 2 Receptor BlockerStart: 04-05-2024 End: 38-17-8587lrrs 1 tablet by mouth once dailylosartan (Cozaar) 100 MG tablet Indications: Benign essential hypertension Take 1 tablet (100 mg) by mouth Daily 90 tablet 1 07/05/2024 ActiveStart: 97-89-9213bxgxaqos 50 mg Tab Refills(s) 0 Start Date: 02/25/22 Status: OrderedmetFORMIN hydrochloride 1000 mg oral tablet (16 sources)BiguanideStart: 04-05-2024 End: 54-89-9610uwpp 1 tablet by mouth in the morningmetFORMIN (Glucophage) 1000 MG tablet Indications: Type 2 diabetes mellitus without complication, without long-term current use of insulin (HCC) Take 1 tablet (1,000 mg) by mouth in the morning and 1tablet (1,000 mg) in the evening. Take with meals. 180 tablet 1 10/03/2024 ActiveStart: 18-13-6517yfwjznqox 1000 mg oral tablet Refills(s) 0 Start Date: 02/25/22 Status: Orderedmetoprolol tartrate 50 mg oral tablet (16 sources)beta-Adrenergic BlockerStart: 04-05-2024 End: 70-35-6464mvyc 1 tablet by mouth in the morningmetoprolol tartrate (Lopressor) 50 MG tablet Indications: Chronic atrial fibrillation (HCC) , Benign essential hypertension Take 1 tablet (50 mg) by mouth in the morning and 1 tablet (50 mg) before bedtime. 180 tablet 1 01/02/2025 04/02/2025 ActiveStart: 74-53-3434Wdgfskwqmu tartrate 50 mg Tab Refills(s) 0 Start Date: 02/25/22 Status: Orderedpioglitazone 45 mg oral tablet (17 sources)Peroxisome Proliferator Receptor alpha Agonist, Peroxisome Proliferator Receptor gamma Agonist, ThiazolidinedioneStart: 01-06-2024 End: 93-46-2855pyis 1 tablet by mouth once dailypioglitazone (Actos) 45 MG tablet Indications: Type 2 diabetes mellitus without complication, without long- term current use of insulin (HCC) Take 1 tablet (45 mg) by mouth Daily 90 tablet 1 07/05/2024 ActiveStart: 08-95-4535dghtixtilrlz 30 mg Tab Refills(s) 0 Start Date: 02/25/22 Status: Ordered Completed/Discontinued Medications MedicationDrug Class(es)DatesSig (Normalized)Sig (Original)aspirin 81 mg delayed release oral tablet (14 sources)Platelet Aggregation Inhibitor, Nonsteroidal Anti-inflammatory Drug Start: 04-05-2024 End: 42-76-5226ioph 1 tablet by mouth once dailyaspirin 81 MG EC tablet Indications: Chronic atrial fibrillation (HCC) (CMS/HCC) , Type 2 diabetes m ellitus without complication, without long-term current use of insulin (CMS/HCC) Take 1 tablet (81 mg) by mouth Daily 90 tablet 1 07/05/2024 10/03/2024 Discontinued (Reorder)Start: 69-76-0025zvlo 1 mg by mouth every four hours aspirin 81 mg oral capsule mg cap(s), Oral, q4hr, Refills(s) 0 Start Date: 02/25/22 Status: Orderedcephalexin 500 mg oral capsule (2 sources)Cephalosporin AntibacterialStart: 78-79-2030tgin 1 capsule by mouth once dailyKeflex 500 mg Cap 500 mg = 1 cap(s), Oral, q12hr, take 1 cap the evening prior to scheduled procedure, take 2nd capsule the day of scheduled procedure, # 2 cap(s), Refills(s) 0, Pharmacy: [facility] [id number], 174, cm, 02/25/22 8:28:00 EDT, Height/Length Dosing, 74... 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]Onset: 07-25-2024 08-05-1081KwzwtfoYibjablu mellitus without complication (20 sources)Type 2 diabetes mellitus without complications; 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: [Type 2 diabetes mellitus without complication]Onset: 50-91-4039SjftksjHwkcpxtle of lipid metabolism (17 sources)Mixed hyperlipidemia; 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: [Mixed hyperlipidemia]Onset: 467368-27-3020HvadzjrBdqskzlcie disorders (15 sources)Gastroesophageal reflux disease; 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: [Gastro-esophageal reflux disease without esophagitis]Onset: 084241-68-4176DnhmqeqPcvxbhuec hypertension (20 sources)Essential (primary) hypertension; 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: [Benign essential hypertension]Onset: 34-39-2355NhtveutMkeymqdwqyn deficiencies (16 sources)Vitamin D deficiency, unspecified; 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: [Vitamin D deficiency]Onset: 269003-76-5011XcgckbqEzeaa aftercare (1 source)Long-term current use of anticoagulant; 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: [residential (current) use of anticoagulants]Onset: 68-63-3645LmgwbexjOzfls nutritional; endocrine; and metabolic disorders (13 sources)Hypercalcemia; 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: [Hypercalcemia]Onset: 01-17-2024 47-72-8775NxevzqhYcyfxlhjqo and visceral atherosclerosis (13 sources)Peripheral vascular disease; 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: [Peripheral vascular disease, unspecified]Onset: 450423-01-7328FtnxrndGucwposz codes; unclassified (15 sources)Obstructive sleep apnea syndrome; 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: [Obstructive sleep apnea (adult) (pediatric)]Onset: 206670-61-4339TpfofztVcvnayhqxnkk (1 source)Asymptomatic microscopic whgqpsiol85-84-2342Oieszwenbpim (1 source)Drug therapy vqxovtr08-29-9143Pxzkawgyxqxk (1 source)Patient encounter [phone] Past or Other Problems Problem ClassificationProblemDateDocumented DateEpisodic/ChronicBiliary tract disease (4 sources)Other specified diseases of gallbladder; 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: [OTHER SPEC DISEASES GALLBLADDER]Onset: 39-04-1666HshfmjslZvsndyvvkbqgx symptoms and ill- defined conditions (20 sources)Microscopic hematuria; 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: [Asymptomatic microscopic hematuria]Onset: 43-98-6597NktydyokZvuwfaycgeyaf and screening for infectious disease (13 sources)Needs influenza immunization; 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: [Encounter for immunization]Onset: 341471-23-8234TfkgsoyfZzqw disorders (13 sources)Mood disordersOnset: 01-25-2024 Resolved: Other aftercare (15 sources)Drug therapy finding; 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: [energy projects lead (current) use of anticoagulants]Onset: 163108-45-6439BpgrbegbUcjqs screening for suspected conditions (not mental disorders or infectious disease) (20 sources)Encounter for screening for malignant neoplasm of prostate; 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: [Screening for malignant neoplasm done]Onset: 34-39-6399Ympttbrl Results Test NameValueInterpretationReference RangeFacilityOffice Visiton 03-20-2025 Follow-up [id number] Serg Velasquez 1955 M Date Provider Department Center 03/20/2025 DAVIS BROOKE [facility] Yousif Hos Family History Problem Relation Age of Onset Coronary artery disease Mother Hypertension Mother Hyperlipidemia Mother Diabetes Father Family Status - Relation Status Age at Mother Father Level of Service:68287 [place] OFFICE/OUTPATIENT ESTABLISHED LOW MDM 20 [facility] HospitalOrders Onlyon 87-53-2997Nwimrj [id number] Serg Velasquez 1955 M Date Provider Department Whately 03/20/2025 [id number], HISTORICAL CARD Yousif Hos Family History Problem Relation Age of Onset Coronary artery disease Mother Hypertension Mother Hyperlipidemia Mother Diabetes Father Family Status - Relation Status Age at Mother Father DeceasedNormalUniversOhioHealth Southeastern Medical CenterALL CBC WITH AUTO DIFFon 97-81-9896ZHSFKZFRB ABSOLUTE AUTO0.1NOMS HealthcareBasophils/100 WBC (Bld)0.9 % 0.2 - 2.0 %NOMS HealthcareEosinophils/100 WBC (Bld)3.2 %0.9 - 7.0 %NOMS HealthcareErythrocyte distribution width (RBC) [Ratio]12.3 %11.0 - 15.0 %NOMS HealthcareHematocrit (Bld) [Volume fraction]44.7 %42.0 - 54.0 %NOM Healthcare Hemoglobin (Bld) [Mass/Vol]15 g/dL14.0 - 18.0 g/dLNOND HealthcareIMMATURE GRANULOCYTES ABS AUTO0.02NOMS HealthcareImmature granulocytes/100 WBC (Bld)0.2 % 0.0 - 0.5 %NOMS HealthcareLYMPHOCYTES ABSOLUTE AUTO2.8[facility] Lymphocytes/100 WBC (Bld)34.9 %20.5 - 60.0 %NOMCenterpoint Medical CenterH (RBC) [Entitic mass]30.7 pg25.9 - 34.0 pgNOPerry County Memorial HospitalHC (RBC) [Mass/Vol]33.6 g/dL29.9 - 35.2 g/dLNOCox MonettMCV (RBC) [Entitic vol]91.6 fL80.0 - 94.0 fLNOND HealthcareMONOCYTES ABSOLUTE AUTO0.7NOMS HealthcareMonocytes/100 WBC (Bld)8.7 % 1.7 - 12.0 %NOMS HealthcareNEUTROPHILS ABSOLUTE AUTO4.2[facility] Neutrophils/100 WBC (Bld)52.1 %43.0 - 75.0 %NOMS HealthcarePlatelet mean volume (Bld) [Entitic vol]9.5 fL9.5 - 13.5 fLNOMS HealthcareTB EO #0.3N[facility] Healthcare TBH [id number] HealthcareTB RBC4.88NOMS HealthcareTB WBC8.1N[facility] Healthcare CLINISYNCNOMS XgwdxzvwmaOtM6d (Bld) [Mass fraction]on 93-56-8008Wxitepdpdidafx and review of laboratory resultsAbnormalDeaconess Incarnate Word Health System HealthcareLaboratory - Hematology and Cell countson 59-66-2870KrH8f (Bld) [Mass fraction]7.8 %[facility] HealthcareOffice Visiton 20-89-1831Pmpwdu-up [id number] Serg Velasquez 1955 M Date Provider Department Center 08/29/2024 DAVIS BROOKE [facility] Family History Problem Relation Age of Onset Coronary artery disease Mother Hypertension Mother Hyperlipidemia Mother Diabetes Father Family Status - Relation Status Age at Mother Father Level of Service:48264 [place] OFFICE/OUTPATIENT NEW MODERATE MDM 45 MINUTESNormal [facility] HospitalEGMENTAL BLOOD PRESSUREon 28-81-3960QhfC[place] [address] Vein Report Signed Patient: SERG VELASQUEZ MR#: [id number] : 1955 Acct:[id number] Age/Sex: 69 / M ADM Date: 07/31/24 Loc: VC Attending Dr: Daniela Mendoza NP Ordering Physician: Daniela Mendoza NP Date of Service: 07/31/24 Procedure(s): VC SEGMENTAL PRESSURES Accession Number(s): [id number] cc: Daniela Mendoza NP [address] [address] Patient Name: SERG VELASQUEZ MRN: [facility]:[id number] date: 1955 Sex: M Assigned Patient Location: Current Patient Location: Accession/Order Number: [id number] Exam Date: 07/31/2024 07:54 Report Date: 08/02/2024 10:11 At the request of: DANIELA MENDOZA Procedure: VC SEGMENTAL PRESSURES EXAM: VC SEGMENTAL PRESSURES HISTORY: Peripheral arterial disease I73.9 COMPARISON: None. TECHNIQUE: Resting ABIs and segmental limb pressures FINDINGS: Right resting RAFA normal at 1.24. Left resting RAFA normal at 1.18. Toe pressure gradients were seen. Waveforms multiphasic. VEIN/VC SEGMENTAL PRESSURES IMPRESSION: Normal resting ABIs. No pressure gradients. Electronically authenticated by: Mark CÁRDENAS Date: 08/02/2024 10:11 Dictated By: Mark Cárdenas M.D. Signed By: 08/02/24 1014 DD/ 1011 TD/TT: Solar Installation Manager:THOMPSONHRadiology, Radiologist, - 08/02/2024 [place] [address] Vein Report Signed Patient: SERG VELASQUEZ MR#: [id number] : 1955 Acct:[id number] Age/Sex: 69 / M ADM Date: 07/31/24 Loc: VC Attending Dr: Daniela Mendoza NP Ordering Physician: Daniela Mendoza NP Date of Service: 07/31/24 Procedure(s): VC SEGMENTAL PRESSURES Accession Number(s): [id number] cc: Daniela Mendoza NP The [address] [address] Patient Name: SERG VELASQUEZ MRN: [facility]:[id number] date: 1955 Sex: M Assigned Patient Location: VC Current Patient Location: Accession/Order Number: [id number] Exam Date: 07/31/2024 07:54 Report Date: 08/02/2024 10:11 At the request of: DANIELA MENDOZA Procedure: VC SEGMENTAL PRESSURES EXAM: VC SEGMENTAL PRESSURES HISTORY: Peripheral arterial disease I73.9 COMPARISON: None. TECHNIQUE: Resting ABIs and segmental limb pressures FINDINGS: Right resting RAFA normal at 1.24. Left resting RAFA normal at 1.18. Toe pressure gradients were seen. Waveforms multiphasic. VEIN/VC SEGMENTAL PRESSURES IMPRESSION: Normal resting ABIs. No pressure gradients. Electronically authenticated by: Mark CÁRDENAS Date: 08/02/2024 10:11 Dictated By: Mark Cárdenas M.D. Signed By: 08/02/24 1014 DD/ 1011 TD/TT: Solar Installation Manager: [facility] MEDICAL CENTERJay Jay Community Memorial HospitalRadiology Study observation (narrative)[facility] BLOOD PRESSUREOrdered By: Radiologist Radiology on 52-62-4650CFXHWashington University Medical Center Work Phone: HbA1c (Bld) [Mass fraction]on 43-24-7962Gfxknfczdeaqob and review of laboratory resultsAbUNC HealthLaboratory - Hematology and Cell countson 90-24-0441EpG5m (Bld) [Mass fraction]8.1 %[facility] University Medical CenterGLYCOHEMOGLOBIN A1Con 60-61-7239FXP RECOMMENDATIONSEE BELOWDayton VA Medical CenterComment on above:Result Comment: ADA RECOMMENDED LIMIT 4.0 - 6.0 ADA THERAPEUTIC TARGET < 7.0 ACTION SUGGESTED > 7.0Performed By: #### A1C ####[facility] [address] [address]Dr. Ashleighjames ChangGlucose [Mass/Vol]177 mg/dLDayton VA Medical CenterComment on above:Performed By: #### A1C ####[facility] [address] [address]Dr.Fern ZuuhsTyD2p (Bld) [Mass fraction]7.8 % Critically high4.5-6.2The [facility] HospitalComment on above:Performed By: #### A1C ####[facility] [address] [address]Dr. Fern ChangMRI ABDOMEN WO W CONon 39-33-9634HSM ABDOMEN WO W CONEXAMINATION: MRI ABDOMEN WO W CON, MRI ABDOMEN [...] Electronically authenticated by: ENID LONGORIA Date: 2022-04-02 17:17[facility] CenterXR FOREIGN BODY EYEon 87-49-4707EW FOREIGN BODY EYEEXAMINATION: XR FOREIGN BODY EYE HISTORY: Foreign body in eye COMPARISON: No relevant comparison available. FINDINGS: ORBITS: Negative for a metallic foreign body. OTHER: Negative. IMPRESSION: 1. No metallic foreign body within the orbits. Electronically authenticated by: PEÑA BRONSON Date: 2022-04-02 07:47[facility] Medical CenterUS SINGLE QUAD RT UPPERon 87-53-5103PZ SINGLE QUAD RT UPPER EXAMINATION: US SINGLE [...] Electronically authenticated by: ENID LONGORIA Date: 2022-03-23 08:[address] [place], [place] [address]sent for Procedure/Surgeryon 88-25-8724Iltycgj for Procedure/[id number]#1.00CD:[address] [place], [place] [address]RAD - CT Reporton 31-89-3843OKT - CT Report [id number]#1.00CD:[address] [place], [place] [address]creenson 48-03-1015Ietrarp [id number]#1.00CD:[address] [place], [place] [id number]#1.00CD:[address] [place], [place] [address]Ambulatory Visit Summaryon 54-24-2759Itfyoysluc Visit Summary SERG VELASQUEZ :1955 Visit Date:03/03/2022 Ambulatory Visit Instructions Your Diagnosis Asymptomatic microscopic hematuria Your Care Team Attending Physician - Milagro [...] By Mouth Every 4 hours Contact prescribing physicianif questions or concerns Unchanged atorvastatin (atorvastatin 40 [...] of the bladder, urethra, kidney, or prostate. Otherpossible causes include: ? Kidney stones. ? Cancer [...] blood in your urine, even if it ispainless or the blood stops without treatment. Blood in the urine, when it happens and then stops and then happens again, can be a symptom of a very serious condition, including cancer. There is no pain in the initial stages of many urinary cancers. Follow these instructions at home: Medicines ? Take hqlp-oci-jvvahea and prescription medicines only as told by your health care provider. ? If you were prescribed an antibiotic medicine, take it as told by your health care provider. Do notstop taking the antibiotic even if you start [...] You develop severe vomi (more content not included)...[facility] HospitalLab Reportson 04-57-2730Ogl Reports [id number]#1.00CD:127NormalAvita Health System Ontario HospitalPatient Educationon 16-96-8196Ruawvpz EducationUrology Hematuria, Adult Hematuria is blood in the urine. Blood may be visible in the urine, or it may be identified with a test. This condition can be caused by infections of the bladder, urethra, kidney, or prostate. Otherpossible causes include: ? Kidney stones. ? Cancer [...] blood in your urine, even if it ispainless or the blood stops without treatment. Blood in the urine, when it happens and then stops and then happens again, can be a symptom of a very serious condition, including cancer. There is no pain in the initial stages of many urinary cancers. Follow these instructions at home: Medicines ? Take trga-obh-eufavsa and prescription medicines only as told by [...] the blood stops without treatment. ? Take vuvb-iui-hgvjkgq and prescription medicines only as told by your health care provider. ? Drink enough fluid to keep your urine clear or pale yellow. This information is not intended to replace advice given to you by your health care provider. Make sure you discuss any questions you have with your health care provider. Document Released: 08/30/2006 Document Revised: 01/24/2020 Document Reviewed: 10/02/2017 [employer] Patient Education ? 2019 [employer] Urology Office/Clinic Noteon 02-32-2636Ovdbbkg Office/Clinic NoteChief Complaint Pt is here for cystoscopy HPI [...] denies hematuria, denies discharge, denies urinary frequency, deniesurinary hesitancy, denies nocturia, denies incontinence, denies genital [...] hematuria (R31.21: Asymptomatic microscopic hematuria) CTU at [facility] on 03-02-2022 negative for filling defects or potential etiology for microhematuria Urine cytology negative Cystoscopy today negative No other concerning urologic issues. Cont group tester screening with PCP, has been wnl Follow up prn Follow-up With When Contact Information Nick CHAVES, Milagro Meyer, URL, URO Only if needed [address] [place] [phone] Additional Instructions: Patient Education Hematuria, Adult I, [...] Recorded SARS-CoV-2 mRNA (tozinameran 5y-11y) vac 11/20/[address] [facility] [address] Joseph Medical CenterComment on above:Result Comment: Electronically Signed By: Milagro Romero MD\.br\Date and Time Signed: 03/03/22 10:22EDT\.br\Electronically Co- Signed By: Virgen Mcclelland\.br\Date and Time Co-Signed: 03/03/22 10:04EDT CREATININEon 88-57-6145Ycxglwwsrw [Mass/Vol]1.23 mg/dLNormal0.70-1.30The [facility] HospitalComment on above:Performed By: #### CREA ####[facility] [address] [address]Dr. Yilan ChangEGFR-AF BRITISH>60Normal>=60The [facility] HospitalComment on above:Performed By: #### CREA ####[facility] [address] [address]Dr. Yilan ChangEGFR-NON AF PFQXQJML52 mL/min/1.10b3Yhxafogdvq low>=60The [facility] HospitalComment on above:Performed By: #### CREA ####[facility] [address] [place], [place] [address]Dr. Yijames ChangCT ABD/PELV WO W CONon 27-20-4245NW ABD/PELV WO W CONCT ABD/PELV WO W CON EXAM DATE: 03/02/2022 5:27 AM ROB COMPARISON: JENNIFER 02/10/2022 INDICATION: Microscopic hematuria TECHNIQUE: Helically acquired [...] Electronically authenticated by: KRISTOFER ALLEN Date: 2022-03-02 14:33[facility] Medical CenterUrine Cytology ([facility])on 61-28-2321Hsufw CytologyDiagnosis InfoInvalid Interpretation [facility] HospitalComment on above: Result Comment: A:Urine,Urine:Voided Interpretation - MicroScopic Description - Adequacy - Gross Description Site ID:A color Yellow fixative Alcohol Specimen designated Urine received in alcohol preservative and labeled with the patient?s name, consists of 110ml clear yellow fluid. One non-tip out worker cytology slide prepared. Electronically signed by : on: 03/02/2022 13:28:25Performed By: #### [id number] ####[facility] [address], [place]Dswagyb 74-05-7519Ljtbn [id number]#1.00CD:[address] [place], [place] [address]Physician Referralon 70-26-5798Bfazkjngp Referral [id number]#1.00CD:[address] [place], [place] [address]creenson 05-03-4233Kmmuvlm [id number]#1.00CD:[address] [place], [place] [address]Urology Office/Clinic Noteon 54-33-9134Pdoqthf Office/Clinic NoteChief Complaint Referred for microscopic hematuria HPI Staff Serg is here today as a new patient referred on Jan 27 2022 for asymptomatic microscopic hematuria,Pt saw PCP for a medicare annual check [...] ASA and Eliquis presents for new pt evaluationof AMH Hx L IHR with mesh 1. [...] among others. The patient, after being informed ofprocedural details and after questions have been answered, wishes to proceed. Full informed consenthas been obtained. Will order Local anesthesia. 2. [...] with PCP Follow-up With When Contact Information Nick CHAVES, Milagro Meyer, URL, URO Additional Instructions: Schedule cysto, review [...] No qualifying data Procedure/S (more content not included)...[facility] Comment on above:Result Comment: Electronically Signed By: Milagro Romero MD\.br\Date and Time Signed: 02/25/22 23:26EDT\.br\Electronically Co-Signed By: Ruby Cervantes\.br\Date and Time Co-Signed: 02/25/22 08:56 EDTAmbulatory Visit Summaryon 25-66-7951Oihndnkjgh Visit Summary SERG VELASQUEZ :1955 Visit Date:02/25/2022 [...] Milagro Romero MD Where: [facility] HospitalPatient Educationon 10-52-7819Brwpfvu EducationUrology Hematuria, Adult Hematuria is blood in the urine. Blood may be visible in the urine, or it may be identified with a test. This condition can be caused by infections of the bladder, urethra, kidney, or prostate. Otherpossible causes include: ? Kidney stones. ? Cancer [...] blood in your urine, even if it ispainless or the blood stops without treatment. Blood in the urine, when it happens and then stops and then happens again, can be a symptom of a very serious condition, including cancer. There is no pain in the initial stages of many urinary cancers. Follow these instructions at home: Medicines ? Take zvyb-mlg-asnbmqj and prescription medicines only as told by [...] the blood stops without treatment. ? Take cmzq-qnk-vlvqrta and prescription medicines only as told by [...] Reviewed: 10/02/2017 Elsevier Patient Education ? 2019 CallApp.[facility] Urine Cytology ([facility])on 18-22-1920TN Method of ExtractionVoidedSalem City HospitalComment on above:Performed By: #### [id number] ####[facility] [address] [place], [place] [id number] Number of Jars 1Invalid Interpretation [facility] HospitalComment on above: Performed By: #### [id number] ####[facility] [address] [place], [place] [id number] SpecimenClean CatchSalem City HospitalComment on above:Performed By: #### [id number] ####[address]UC Type of ServiceTechnical OnlySalem City HospitalComment on above:Performed By: #### [id number] ####[facility] [address] [place] [id number] KUB 1 VIEWon [id number] KUB 1 VIEWEXAMINATION: XR KUB 1 VIEW HISTORY: Microscopic hematuria [...] Electronically authenticated by: ENID LONGORIA Date: 2022-02-10 08:00[facility] AUTO DIFFon 07-51-5162XTBD #0.1 103/ulNormal0.0-0.1The Providence HospitalComment on above:Performed By: #### CBC #### [facility] [address] [address] [address] Fern CaballeroBasophils/100 WBC (Bld)1.0 %Normal0.2-2.0[facility] Comment on above:Performed By: #### CBC #### [facility] [address] [place] [address] Dr. Fern Morales #0.2 103/ulNormal0.0-0.7The [facility] HospitalComment on above: Performed By: #### CBC #### [facility] [address] [address] [address] Fern Bonillaosinophils/100 WBC (Bld)3.0 %Normal0.9-7.0[facility] Comment on above:Performed By: #### CBC #### [facility] [address] [place] [address] Dr. Fern Bonillarythrocyte distribution width (RBC) [Ratio]12.7 %Uvgvvg39.0-15.0 The [facility] HospitalComment on above:Performed By: #### CBC #### [facility] [address] [place] [address] Dr. Fern CaballeroHematocrit (Bld) [Volume fraction]45.2 %Anbeag41.0-54.0The [facility] HospitalComment on above:Performed By: #### CBC #### [facility] [address] [place] [address] Dr. Fern CaballeroHemoglobin (Bld) [Mass/Vol]15.0 g/xZDfzwby37.0-18.0The [facility] HospitalComment on above:Performed By: #### CBC #### [facility] [address] [place] [address] Dr. Fern Khan #0.03 10e3/ulNormal0.00-0.03The [facility] on above:Performed By: #### CBC #### [facility] [address] [place] [address] Dr. Fern Khan %0.4 %Normal0.0-0.5The [facility] HospitalCommclaren [place] on above: Performed By: #### CBC #### [facility] [address] [place] [address] Dr. Fern Chapa #2.4 103/ulNormal1.2-3.8The [facility] HospitalCommclaren [place] on above:Performed By: #### CBC #### [facility] [address] [place] [address] Dr. Fern Millerhocytes/100 WBC (Bld)30.7 %Zaeykl73.5-60.0The [facility] HospitalCommclaren northern [place] on above:Performed By: #### CBC #### [facility] [address] [place] [address] Dr. Fern HollingsworthUAL DIFF REQNONormalThe [facility] on above: Performed By: #### CBC #### [facility] [address] [place] [address] Dr. Fern Lemon (RBC) [Entitic mass]30.7 ioJmoxzv22.9-34.0[facility] on above:Performed By: #### CBC #### [facility] [address] [place] [address] Dr. Fern Lemon (RBC) [Mass/Vol]33.2 g/uVDuhuwp72.9-35.2[facility] on above:Performed By: #### CBC #### [facility] [address] [place] [address] Dr. Fern Lemon (RBC) [Entitic vol]92.4 gIXnvjdc25.0-94.0The [facility] HospitalComment on above:Performed By: #### CBC #### [facility] [address] [place] [address] Dr. Fern Marrero #0.9 103/ulCritically high0.3-0.8[facility] Comment on above:Performed By: #### CBC #### [facility] [address] [place] [address] Dr. Fern Guptaocytes/100 WBC (Bld)10.8 %Normal1.7-12.0[facility] Comment on above:Performed By: #### CBC #### [facility] [address] [place] [address] Dr. Fern Riddle #4.3 103/ulNormal1.4-6.5The [facility] HospitalComment on above:Performed By: #### CBC #### [facility] [address] [place] [address] Dr. Fern Wattsutrophils/100 WBC (Bld)54.1 %Izuieh29.0-75.0The [facility] HospitalComment on above:Performed By: #### CBC #### [facility] [address] [place] [address] Dr. Fern Hawkinslet mean volume (Bld) [Entitic vol]10.3 fLNormal9.5-13.5The [facility] HospitalComment on above:Performed By: #### CBC #### [facility] [address] [place] [address] Dr. Fern CaballeroPLT286 103/nxAwurqs317-347Dnv [facility] HospitalComment on above: Performed By: #### CBC #### [facility] [address] [place] [address] Dr. Fern CaballeroRBC4.89 106/ulNormal4.70-6.10The [facility] HospitalComment on above:Performed By: #### CBC #### [facility] [address] [place] [address] Dr. Fern CaballeroWBC7.9 103/ulNormal4.0-11.0The [facility] HospitalComment on above: Performed By: #### CBC #### [facility] [address] [address] [address] Fern CaballeroGLYCOHEMOGLOBIN A1Con 76-99-5513IDG RECOMMENDATIONSEE BELOWHolzer HospitalComment on above:Result Comment: ADA RECOMMENDED LIMIT 4.0 - 6.0 ADA THERAPEUTIC TARGET < 7.0 ACTION SUGGESTED > 7.0Performed By: #### A1C ####[facility] [address] [address]Dr. Fern CaballeroGlucose [Mass/Vol]171 mg/dLNoSouthern Ohio Medical CenterComment on above:Performed By: #### A1C ####[facility] [address] [address]Dr.Yilan CaballeroHbA1c (Bld) [Mass fraction]7.6 % Critically high4.5-6.2[facility] CenterComment on above:Performed By: #### A1C ####[facility] [address] [address]Dr. Fern CaballeroLIPID PROFILEon 29-42-3101XKSB-HDL RATIO NORMSEE Wilson Street HospitalComment on above:Result Comment: 3.3 - 4.4 LOW RISK 4.4 - 7.1 AVERAGE RISK 7.1 - 11.0 MODERATE RISK >11.0 HIGH RISKPerformed By: #### CMP, LIPID #### [facility] [address] [place] [address] Dr. Fern CaballeroCholesterol [Mass/Vol]122 mg/dLNormal<=200The [facility] Comment on above:Performed By: #### CMP, LIPID #### [facility] [address] [address] [address] Fern CaballeroCholesterol in HDL [Mass/Vol]36 mg/dLCritically gdj28-49Nwp [facility] HospitalComment on above:Performed By: #### CMP, LIPID #### [facility] [address] [address] [address] Fern Heathesterol in LDL [Mass/Vol]56.4 mg/dLDayton VA Medical CenterComment on above:Performed By: #### CMP, LIPID #### [facility] [address] [address] [address] Fern CaballeroCholesterol.total/Cholesterol in HDL [Mass ratio]3.4 {ratio} NormalThe [facility] HospitalComment on above:Performed By: #### CMP, LIPID #### [facility] [address] [address] [address] Fern Hernandez NORMAL> or = 60 mg/dl - LOW CARDIOVASCULAR RISK <40 mg/dl - HIGH CARDIOVASCULAR RISKDayton VA Medical CenterComment on above:Performed By: #### CMP, LIPID #### [facility] [address] [address] [address] Fern CaballeroLDL CALC NORMALSEE BELOWDayton VA Medical CenterComment on above:Result Comment: <100 mg/dl OPTIMAL 100 - 129 mg/dl NEAR OR ABOVE OPTIMAL 130 - 159 mg/dl BORDERLINE HIGH 160 - 189 mg/dl HIGH >190 mg/dl VERY HIGH Performed By: #### CMP, LIPID #### [facility] [address] [address] [address] Fern CaballeroTriglyceride [Mass/Vol]148 mg/dLNormal<=150The [facility] Comment on above:Performed By: #### CMP, LIPID #### [facility] [address] [address] [address] Fern CaballeroVLDL CALC29.6 mg/dLNormKettering Health TroyComment on above: Performed By: #### CMP, LIPID #### [facility] [address] [address] [address] Fern CaballeroMICROALBUMIN, RAND URon 69-83-3131kWTK4.2 mg/LNormal<=30.0The [facility] HospitalComment on above:Performed By: #### MALBR #### [facility] [address] [place] [address] Dr. Fern CaballeroPROF 14(COMP METB)on 15-43-9782Mogankm [Mass/Vol]4.1 g/dLNormal 3.4-5.0The [facility] HospitalComment on above:Performed By: #### CMP, LIPID #### [facility] [address] [address] [address] Fern CaballeroAlbumin/Globulin [Mass ratio]1.3 {ratio}NormalThe [facility] HospitalComment on above:Performed By: #### CMP, LIPID #### [facility] [address] [address] [address] Fern Beyer [Catalytic activity/Vol]81 U/MObnljn56-649Zlm [facility] HospitalComment on above:Performed By: #### CMP, LIPID #### [facility] [address] [address] [address] Fern Romero [Catalytic activity/Vol]43 U/ZUriinp69-65Ipe [facility] HospitalComment on above:Performed By: #### CMP, LIPID #### [facility] [address] [address] [address] Fern Perdomoon gap [Moles/Vol]10.5 mmol/LNormalThe [facility] Comment on above:Performed By: #### CMP, LIPID #### [facility] [address] [address] [address] Fern CaballeroAST [Catalytic activity/Vol]20 U/YQvekrb28-98Cia [facility] HospitalComment on above:Performed By: #### CMP, LIPID #### [facility] [address] [address] [address] Fern CaballeroBilirubin [Mass/Vol]0.7 mg/dLNormal0.2-1.0[facility] Comment on above:Performed By: #### CMP, LIPID #### [facility] [address] [address] [address] Fern CaballeroCalcium [Mass/Vol]9.5 mg/dLNormal8.5-10.1[facility] Comment on above:Performed By: #### CMP, LIPID #### [facility] [address] [address] [address] Fern CaballeroChloride [Moles/Vol]101 mmol/DVrcijv13-394Sgc [facility] Comment on above:Performed By: #### CMP, LIPID #### [facility] [address] [address] [address] Fern CaballeroCO2 [Moles/Vol]27.9 mmol/BYgazot44.0-32.0[facility] Comment on above:Performed By: #### CMP, LIPID #### [facility] [address] [address] [address] Fern CaballeroCreatinine [Mass/Vol]1.19 mg/dLNormal0.70-1.30The [facility] HospitalComment on above:Performed By: #### CMP, LIPID #### [facility] [address] [address] [address] Fern BonillaGFR-AF BRITISH>60Normal>=60The [facility] HospitalComment on above:Performed By: #### CMP, LIPID #### [facility] [address] [address] [address] Fern BnoillaGFR-NON AF BRITISH>60Normal>=60The [facility] HospitalComment on above:Performed By: #### CMP, LIPID #### [facility] [address] [address] [address] Fern CaballeroGlobulin (S) [Mass/Vol]3.2 g/dLNormalThe [facility] HospitalComment on above:Performed By: #### CMP, LIPID #### [facility] [address] [address] [address] Fern CaballeroGlucose [Mass/Vol]175 mg/dLCritically bsah26-019Hyv [facility] HospitalComment on above:Performed By: #### CMP, LIPID #### [facility] [address] [address] [address] Fern CaballeroPotassium [Moles/Vol]4.4 mmol/LNormal3.5-5.1[facility] Comment on above:Performed By: #### CMP, LIPID #### [facility] [address] [address] [address] Fern CaballeroProtein [Mass/Vol]7.3 g/dLNormal6.4-8.2[facility] Comment on above:Performed By: #### CMP, LIPID #### [facility] [address] [address] [address] Fern De La Torredium [Moles/Vol]135 mmol/LCritically pfd980-862Emw [facility] HospitalComment on above:Performed By: #### CMP, LIPID #### [facility] [address] [address] [address] Fern Joshi nitrogen [Mass/Vol]18.0 mg/dLNormal7.0-18.0The [facility] HospitalComment on above:Performed By: #### CMP, LIPID #### [facility] [address] [address] [address] Fern Joshi nitrogen/Creatinine [Mass ratio]15.1 mg/mgNormalThe [facility] HospitalComment on above:Performed By: #### CMP, LIPID #### [facility] [address] [address] [address] Fern Khan RANDOM W/MICROSCOPICon 99-01-3282WSHKMBBIZKVM SEENNormalNONE SEENCoshocton Regional Medical CenterComment on above:Performed By: #### UAMIC #### [facility] [address] [address] [address] Fern Mac Ql (U)NegativeNormalNEGATIVECoshocton Regional Medical Center Comment on above:Performed By: #### UAMIC #### [facility] [address] [address] [address] Fern CaballeroCASTNONE SEENNormalNONE SEENCoshocton Regional Medical CenterComment on above:Performed By: #### UAMIC #### [facility] [address] [address] [address] Fern Motta (U)CLEARNormalCLEARCoshocton Regional Medical CenterComment on above: Performed By: #### UAMIC #### [facility] [address] [address] [address] Fern Tracy (U)LT. YELLOWNormalYELLOWThe [facility] HospitalComment on above:Performed By: #### UAMIC #### [facility] [address] [address] [address] Fern CaballeroCrystals LM Nom (Urine sed)NONE SEENNormalNONE SEENCoshocton Regional Medical CenterComment on above:Performed By: #### UAMIC #### [facility] [address] [address] [address] Shirley ChangEpithelial cells LM Ql (Urine sed)RARENormalNONE SEEN /RAREThe [facility] HospitalComment on above:Performed By: #### UAMIC #### [facility] [address] [address] [address] Fern CaballeroGlucose Ql (U)NegativeNormalNEGATIVECoshocton Regional Medical CenterComment on above:Performed By: #### UAMIC #### [facility] [address] [place] [address] Dr. Fern CaballeroHemoglobin Ql (U)SMALLAbnormalNEGATIVEMercy Health St. [facility] on above:Performed By: #### UAMIC #### [facility] [address] [place] [address] Dr. Fern CaballeroKetones Ql (U)NegativeNormalNEGATIVECoshocton Regional Medical CenterComment on above:Performed By: #### UAMIC #### [facility] [address] [address] [address] Fern CaballeroLEUKOCYTESNegativeNormalNEGATIVECoshocton Regional Medical CenterComment on above:Performed By: #### UAMIC #### [facility] [address] [address] [address] Fern CaballeroMUCOUSNONE SEENNormalNONE SEENCoshocton Regional Medical CenterComment on above:Performed By: #### UAMIC #### [facility] [address] [address] [address] Fern CaballeroNitrite Ql (U)NegativeNormalNEGATIVECoshocton Regional Medical CenterComment on above:Performed By: #### UAMIC #### [facility] [address] [address] [address] Fern CaballeropH (U)5.5 [pH]Normal5-9The [facility] HospitalComment on above: Performed By: #### UAMIC #### [facility] [address] [address] [address] Fern CaballeroKgpdyIEM0-6Hjnjwmwk2-1Zkq [facility] on above:Performed By: #### UAMIC #### [facility] [address] [address] [address] Fern CaballeroSPEC GRAVITY>=1.089Seytdyjc3.005-<=1.025[facility] Comment on above:Performed By: #### UAMIC #### [facility] [address] [place] [address] Dr. Fern Khan PROTEINNegativeNormalNEGATIVE/ TRACEThe [facility] Comment on above:Performed By: #### UAMIC #### [facility] [address] [place] [address] Dr. Fern Santosbilino Qn (U)0.2 {Prudencio'U}/dLNormal0.2 - 1.0The [facility] HospitalComment on above:Performed By: #### UAMIC #### [facility] [address] [place] [address] Dr. Fern Mays SEENNormalNONE SEENOhio State Harding Hospital on above: Performed By: #### UAMIC #### [facility] [address] [place] [address] Dr. Fern CaballeroVITAMIN D 25 OHon 41-72-3131CKL D 25-OH34.0 ng/mLNormalOhio State Harding Hospital on above:Performed By: #### VITDOMINGO PSASC ####[facility] [address] [address]Dynes Perry RANGESSEE BELOWGalion Hospital on above:Result Comment: <20 ng/mL Vit D deficient 20 - <30 ng/mL Vit D insufficient 30 - 100 ng/mL Vit D sufficient >100 ng/mL Potential ToxicityPerformed By: #### VITAD PSASC ####[facility] [address] [place], [place] [address]Dr. Fern CaballeroCardiovascular Lab Reporton 75-19-2833Tnsolgkdaagsfa Lab Report [facility] Patient Name: [facility] Felix Lara MR #: [id number] Department of Physician: Sanam So M.D. Division of Service Date: 01/17/2021 Cardiology Birthdate: 1955 Adult Cardiovascular Room #: [facility] [address] [facility]. [place] [address] Cardiovascular Laboratory Report PROCEDURE: Synchronized cardioversion for [...] P/Candido Blood M.D. Date Trans: 01/18/2021 03:02 A/mmo DN_JN:[id number] cc: Daniela Mendoza N.P. [facility], [address] [place] [address] Elayne Infante, [employer]ITCHER [address] [place] [address] [address] [place] [address]YddekzSchJoint Township District [facility] Vital Signs Date TimeVital SignValuePerforming RlkxnksjuVxvefmsj09-39-8747 10:22-0400Body mass index (BMI) [Ratio]25.51 kg/m2Daniela Reji [employer] Work Phone: [facility] CenterPbnfdtzgzp44-13-6378 10:22-0400Body temperature 98.49 [degF]Daniela Reji [employer] Work Phone: [facility] CenterMrfcabpypm05-28-6536 10:22-0400Body caqwdc86.11 kgDaniela Reji [employer]IST Work Phone: [facility] CenterAeoqonjnuc33-60-4559 10:22-0400Diastolic blood jgtojkpc30 mm[Hg]Daniela Reji [employer]IST Work Phone: [facility] CenterQeleynxrid74-71-3976 10:22-0400Heart rate57 /min Daniela Reji [employer] Work Phone: [facility] CenterSbvinoyqzw49-00-4429 10:22-0400Respiratory rate18 /minDaniela Reji [employer]IST Work Phone: [facility] CenterQhzutyvewh43-62-7451 10:22-2118YzM5% (BldA) [Mass fraction]97 %Daniela Reji [employer] SPECIALIST Work Phone: noCox MonettRhfqsxyvqr55-77-3179 10:22-0400Systolic blood pazfqmty203 mm[Hg]Daniela Reji [employer]IST Work Phone: [facility] CenterZqvghachka90-41-6050 08:32-0500Body cdwzro822.7 Surajfiorella Reji [employer]IST Work Phone: [facility] CenterCxjczkryic26-48-4557 08:32-0500Body mass index (BMI) [Ratio]25.73 kg/m2Daniela Mendoza [employer] Work Phone: [phone] [place], [place] [address]Gwvhfqkwde37-80-2550 08:32-0500Body temperature 98.49 [degF]Daniela Mendoza [employer]IST Work Phone: [address] [place] [address]Uizpnkwkkq74-82-8666 08:32-0500Body kocnyc19.75 kgDaniela Mendoza [employer]IST Work Phone: [phone] [place], [place] [address]Edgjduovej53-83-7752 08:32-0500Diastolic blood eovrwdii54 mm[Hg]Daniela Mendoza [employer]IST Work Phone: [phone])[facility] [place], [place] [address]Svpwbxflkq30-18-8094 08:32-0500Heart rate60 /min Daniela Mendoza [employer]IST Work Phone: [phone])[facility]-[address] [place], [place] [address]Urjqnwxdbw61-53-4729 08:32-0500Respiratory rate18 /minDaniela Mendoza [employer] SPECIALIST Work Phone: [phone] [place] [address]-12-2024 08:32-2428UpH1% (BldA) [Mass fraction]100 %Daniela Mendoza [employer]IST Work Phone: [address] [place] [address]Taiaokgrvd91-05-6768 08:32-0500Systolic blood djncaeuq394 mm[Hg]Daniela Mendoza [employer]IST Work Phone: [facility] CenterImtkkuuzod38-94-0512 09:12-0400Blood Pressure LocationKathy Lue [facility] 06-21-2022 09:12-0400Diastolic blood sewaewdr07 mm[Hg] Milagro Lue [facility] 06-21-2022 09:12-0400Heart rate75 /minKathy Lue [facility] 06-21-2022 09:12-0400Systolic blood cyfbdswg726 mm[Hg] Milagro Lue [facility] 06-15-2022 08:26-0400Blood Pressure LocationKathy Lue [facility] 06-15-2022 08:26-0400Diastolic blood mm[Hg] Milagro Lue [facility] [employer] 06-15-2022 08:26-0400Heart rate65 /minKathy Lue [facility] [employer] 06-15-2022 08:26-0400Systolic blood ihqvhgfe337 mm[Hg] Milagro Lue [facility] [employer] Encounters Encounter DateEncounter TypeCare ProviderFacilityStart: 03-20-2025 End: 13-94-4802dqrbmirvqaRVHMCherrington Hospitaltart: 03-06-2025 End: 53-92-2084Unzctgvoq Result EncounterLisa Aichholz [employer] Work Phone: noms External Department UnsolicitedStart: 03-06-2025 End: 72-23-7483Njacxhnsv Result EncounterLisa Aichholz [employer]IST Work Phone: noms External Department UnsolicitedStart: 01-30-2025 End: 17-49-7950Geaiyi flowsheetLisa Aichholz [employer]IST Work Phone: noms CWM FMStart: 01-30-2025 End: 30-79-6033Bjzsom flowsheetLisa Reji [employer]IST Work Phone: noms CWM FMStart: 01-30-2025 End: 06-66-9292Dhwojsc encounter procedureLisa Phyllishholz [employer]IST Work Phone: noms CWM FMComment on above:Encounter for subsequent annual wellness visit (AWV) in Medicare patient (Primary Dx); Benign essential hypertension (CMS/HCC); Chronic atrial fibrillation (HCC) (CMS/HCC); Type 2 diabetes mellitus without complication, without long-term current use of insulin; Mixed hyperlipidemia (CMS/HCC); Screening for prostate cancer; Vitamin D deficiency; Paroxysmal atrial fibrillation (CMS/HCC)Start: 01-30-2025 End: 80-35-9402jiqzxfwjhbZLXI AICHHOLZNot AvailableStart: 01-01-2025 End: 44-02-5589WnebsxBfqk Naderer MD Work Phone: noms CW FMComment on above:Mixed hyperlipidemia (CMS/HCC); Chronic atrial fibrillation (HCC) (CMS/HCC); Benign essential hypertension (CMS/HCC)Start: 10-03-2024 End: 42-52-6052SdogbpWgbo Aichholz [employer]IST Work Phone: noms CWM FMComment on above:Chronic atrial fibrillation (HCC) (CMS/HCC); Type 2 diabetes mellitus without complication, without long-term current use of insulin (CMS/HCC)Start: 08-29-2024 End: 83-88-9902zzlipvjbzjOKUL [facility] Hospitaltart: 08-14-2024 End: 43-27-7354Qxgzojslp encounterLisa Farshadholz [employer] SPECIALIST Work Phone: noms CWM FMStart: 08-02-2024 End: 75-14-8308Ovzegoxio Result EncounterLisa Aichholz [employer]IST Work Phone: noms External Department UnsolicitedStart: 08-02-2024 End: 61-65-8710Poescsuav Result EncounterLisa Aichholz [employer]IST Work Phone: noms External Department UnsolicitedStart: 07-25-2024 End: 80-85-9525Luzmzn flowsheetDaniela Yenholz [employer] SPECIALIST Work Phone: noms CWM FMStart: 07-25-2024 End: 26-34-4922Krjboi flowsheetDaniela Yenholz [employer] SPECIALIST Work Phone: noms CWM FMStart: 07-25-2024 End: 23-72-1383Xpdash outpatient visit 25 minutesLisa Fergusonkareem [employer] SPECIALIST Work Phone: noms CWM FMComment on above:Type 2 diabetes mellitus without complication, without long-term current use of insulin (CMS/HCC) (P rimary Dx); Other thrombophilia (CMS/HCC); Peripheral vascular disease, unspecified (CMS/HCC); Obstructive sleep apnea syndrome; Benign essential hypertension (CMS/HCC); Chronic atrial fibrillation (HCC) (CMS/HCC); Anticoagulated; Needs flu shot; Gastroesophageal reflux disease without esophagitisStart: 07-25-2024 End: 19-54-6660xixochwqmqBLQO PHYLLISHBRITTANYZNot AvailableStart: 07-05-2024 End: 01-33-9899NbfnhoIrqi Aichholz [employer] SPECIALIST Work Phone: noms CWM FMComment on above:Chronic atrial fibrillation (HCC) (CMS/HCC); Type 2 diabetes mellitus without complication, without long-term current use of insulin (CMS/HCC); Mixed hyperlipidemia (CMS/HCC); Benign essential hypertension (CMS/HCC)Start: 06-12-2024 End: 75-48-1391PfwpphGhhw Phyllishholz CREDENTIALS SPECIALIST Work Phone: noms CWM FMComment on above:Type 2 diabetes mellitus without complication, without long-term current use of insulin (CMS/HCC)Start: 38-47-4624Mxivljl encounter procedureDaniela Reji CREDENTIALS SPECIALIST Work Phone: noms HealthcareStart: 07-15-2022 End: 57-13-3132sqcsluwokyWLI DANIELA AICHHOLZFacility:S5Fkguk: 04-02-2022 End: 09-97-6154coeqpyliaxHT ELIZABETH CROWFacility:S5Ukwdb: 03-23-2022 End: 95-59-3056sovyhaksfrDMR DANIELA AICHHOLZFacility:U8Qiowo: 03-03-2022 End: 13-02-1322Ixkcxnp encounter procedureMilagro Romero [facility] Start: 03-02-2022 End: 96-21-3104gbophxazzpKLQXH M MILLAMargoth .Facility:U7Xnzsp: 02-25-2022 End: 44-69-7899Pygqgze encounter procedureMilagro Padillamargoth [facility] start: 02-10-2022 End: 26-28-7098bszmujtfbrKRH DANIELA AICHHOLZFacility:X0Maxzm: 01-21-2022 End: 57-65-1955mgdpubxgwkXQN DANIELA AICHHOLZFacility:U6Lokbq: 01-17-2021 End: 82-16-0732dcjogawlhxMOUNPM GUPTAFacility:[facility] Procedures DateProcedureProcedure DetailPerforming ClinicianStart: 34-32-5818NEU CBC WITH AUTO DIFFLisa Aichholz CREDENTIALS SPECIALIST Work Phone: Start: 16-96-2721Wfldtcmbyw glycosylated o5sGmqj Aichholz CREDENTIALS SPECIALIST Work Phone: Start: 12-37-1052UAKJAMZQA BLOOD PRESSURELisa Aichholz CREDENTIALS SPECIALIST Work Phone: Start: 80-07-0373Hlqyrflxzq glycosylated n0gCjkg Aichholz CREDENTIALS SPECIALIST Work Phone: Start: 88-41-0241QLH screeningDR ELIZABETH CROW Comment on above:Performed By: #### VITAD, PSASC ####[facility] [address] [place], [place]Dr. Fern ChangStart: 22-89-0829UbfboitkjhbWeor Aichholz NP Work Phone: ColonoscopyMilagro Romero Hernia of abdominal cavity (disorder)Milagro Romero Plan of Treatment DateCare ActivityDetailAuthorStart: 02-05-2026 End: 74-76-0121Fwvqtds encounter xurshuurw94/26/2026 10:00 AM EDT Office Visit [facility] [address] [place] [id number] Daniela Mendoza, LUCILA [address] [place] [phone] [facility] FMStart: 05-20-2026Medicare Annual Wellness (AWV) Medicare Annual Wellness (AWV)NOM HealthcareStart: 08-02-2025 End: 10-10-2068Rnrnwlg encounter ayuxvmjfw27/20/2025 9:00 AM EST Office Visit [facility] [address] [place] [address] Daniela Mendoza, 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 [address] [place] [phone] [facility] FMStart: 31-68-4474Bfcxtadop vaccinationInfluenza Vaccine (#1)[facility]S HealthcareStart: 24-52-4278Ytmtfcfzlo A1c measurementDiabetes: Hemoglobin T7FYPDW HealthcareStart: 52-43-4734Duttiybqz for malignant neoplasm of colonNOMS HealthcareStart: 73-03-9130Hlmbp screening for proteinDiabetes: Urine Protein ScreeningNOMS HealthcareStart: 01-30-2025 End: 73-96-214099840770-aonrdanwtcstwe D3 [Mass/volume] in Serum or PlasmaVitamin D 25 hydroxy Lab Routine Vitamin D deficiency Expected: 01/30/2025 (Approximate), Expires: 01/30/2026[facility] HealthcareComment on above:Expected: 01/30/2025 (Approximate), Expires: 01/30/2026Start: 01-30-2025 End: 75-42-4280OMM W Auto Differential panel - BloodCBC and differential Lab Routine Chronic atrial fibrillation (HCC) (CMS/HCC) Expected: 01/30/2025 (A pproximate), Expires: 01/30/2026NOND HealthcareComment on above:Expected: 01/30/2025 (Approximate), Expires: 01/30/2026Start: 01-30-2025 End: 33-28-0082Ujwjgimgaoypw metabolic 2000 panel - Serum or PlasmaComprehensive metabolic panel Lab Routine Benign essential hypertension (CMS/HCC) Type 2 diabetes mellitus without complication, without long-term current use of insulin Mixed hyperlipidemia (CMS/HCC) Vitamin D deficiency Expected: 01/30/2025 (Approximate), Expires: 01/30/2026[facility] HealthcareComment on above:Expected: 01/30/2025 (Approximate), Expires: 01/30/2026Start: 01-30-2025 End: 66-03-1073Cakzf 1996 panel - Serum or PlasmaLipid panel Lab Routine Mixed hyperlipidemia (CMS/HCC) Expected: 01/30/2025 (Approximate), Expires:01/30/2026 N[facility] HealthcareComment on above:Expected: 01/30/2025 (Approximate), Expires: 01/30/2026Start: 01-30-2025 End: 87-43-8690Xbjpfccioxil/Creatinine panel in random UrineMicroalbumin / creatinine, urine ratio Lab Routine Benign essential hypertension (CMS/HCC) Type 2 diabetes mellitus without complication, without long-term current use of insulin Expected: 01/30/2025(Approximate), Expires: 01/30/2026[facility] Comment on above:Expected: 01/30/2025 (Approximate), Expires: 01/30/2026Start: 01-30-2025 End: 93-57-2925Iwgdwouz specific Ag [Mass/volume] in Serum or PlasmaPSA Lab Routine Screening for prostate cancer Expected: 01/30/2025 (Approximate), Expires: 01/30/2026[facility] Healthcare Work Phone: Comment on above:Expected: 01/30/2025 (Approximate), Expires: 01/30/2026Start: 01-30-2025 End: 46-91-6083Kktxkrddhe complete panel - UrineUrinalysis with reflex microscopic (clean catch) Lab Routine Benign essential hypertension (CMS/HCC) Type 2 diabetes mellitus without complication, without long-term current use of insulin Mixed hyperlipidemia (CMS/HCC) Expected: 01/30/2025 (Approximate), Expires: 01/30/2026[facility] HealthcareComment on above:Expected: 01/30/2025 (Approximate), Expires: 01/30/2026Start: 01-30-2025 End: 53-96-0587Sqdbskr encounter procedureNOMS [facility] SYSTEMComment on above:Benign essential hypertension (CMS/HCC) (Primary Dx); Chronic atrial fibrillation (HCC) (CMS/HCC); Type 2 diabetes mellitus without complication, without long-term current use of insulin; Encounter for subsequent annual wellness visit (AWV) in Medicare patient; Mixed hyperlipidemia (CMS/HCC); Screening for prostate cancer; Vitamin D deficiency; Colon cancer screeningStart: 05-14-2025Medicare Annual Wellness (AWV)Medicare Annual Wellness (AWV)[facility] HealthcareStart: 38-45-4684Oqiqxygedw A1c measurement Diabetes: Hemoglobin R0CGLWC HealthcareStart: 07-25-2024 End: 96-41-5586Lupoysazfl A1c/Hemoglobin.total in BloodHemoglobin A1c Lab Routine Type 2 diabetes mellitus without complication, without long-term current use of insulin (CMS/HCC) Expected: 07/25/2024 (Approximate), Expires: 07/25/2025 [facility] Healthcare Work Phone: Comment on above:Expected: 07/25/2024 (Approximate), Expires: 07/25/2025Start: 07-25-2024 End: 60-86-1382Cjyyyvl encounter mvsdyjhqw79/12/2024 8:40 AM EST Office Visit [facility] [address] [place] [address] Daniela Mendoza NP [address] [place] [address] [facility] FMStart: 58-40-2786Duaagnjxr vaccinationInfluenza Vaccine (#1)[facility] HealthcareStart: 65-69-5621Qlqpelce screeningDiabetes: Retinopathy ScreeningGARFIELD MEMORIAL [facility]OSPITAL HealthcareStart: 64-07-5788Bktxklayf for malignant neoplasm of colonGARFIELD [facility]IAL [facility] Healthcare Immunizations Immunization DateImmunizationNotesCare CmuahsboVepocfig73-91-4923Wkqtulql trivalent influenza vaccine, adjuvanted, preservative freeLisa Aichholz CREDENTIALS SPECIALIST Work Phone: [facility] CenterBggyxckgam23-74-2149uprpjfoyc virus vaccine, unspecified formulationLisa Aichholz CREDENTIALS SPECIALIST Work Phone: [facility] CenterGxywileepw80-81-1495Iswwraqrk, High-dose Seasonal, Quadrivalent, Preservative FreeLisa Aichholz CREDENTIALS SPECIALIST Work Phone: [facility] CenterUmgvrxhjla50-14-0222lvcdzvzqj virus vaccine, unspecified formulationLisa Aichholz CREDENTIALS SPECIALIST Work Phone: [facility] CenterTycazmhlqv12-50-5058vjwydx vaccine recombinant Daniela Aichholz CREDENTIALS SPECIALIST Work Phone: [facility] CenterXzwnzjnjch78-44-6250Vkborfnjclcs Conjugate PCV 20 Daniela Aichholz CREDENTIALS SPECIALIST Work Phone: [facility] CenterUvfekhpcxj68-09-5205bxgwsm vaccine recombinant Daniela Aichholz CREDENTIALS SPECIALIST Work Phone: [facility] CenterBmypxqmqen19-88-9764Orxejje ZQGF-VzU-6Wdtu Aichholz CREDENTIALS SPECIALIST Work Phone: [facility] CenterLvzwarudmb79-54-9074UGWK-MoN-4 mRNA (tozinameran 5y-11y) vaccineKathy Lue [facility] 03282697-44-7582Krvlyol ENYS-HbB-1Tvmp Aichholz CREDENTIALS SPECIALIST Work Phone: [facility] CenterSjjvntmpzt26-45-3996XDCV-QjW-0 mRNA (tozinameran 5y-11y) vaccineKathy Lue [facility] Yousif 10310320-93-6063myhvfyums, seasonal, injectable, preservative freeLisa Aichholz CREDENTIALS SPECIALIST Work Phone: [facility] CenterGxfxngecpq05-68-3597wrgzvvopd, seasonal, injectableLisa Aichholz CREDENTIALS SPECIALIST Work Phone: [facility] CenterXrvgmuxoit31-80-8935pyuivicoq, seasonal, injectable, preservative freeLisa Aichholz CREDENTIALS SPECIALIST Work Phone: [facility] CenterGbncfstvjo31-74-1925xyngkfwhoitr polysaccharide vaccine, 23 valentLisa Aichholz CREDENTIALS SPECIALIST Work Phone: [facility] CenterKcmxgevapr77-54-6919carodhyop, seasonal, injectable, preservative freeLisa Aichholz CREDENTIALS SPECIALIST Work Phone: [facility] CenterAomnadltpf94-61-3388fydhvknc influenza, intradermal, preservative freeLisa Aichholz CREDENTIALS SPECIALIST Work Phone: [facility] CenterQmycessfqi15-66-8932jhfysjhqv virus vaccine, whole virusLisa Aichholz CREDENTIALS SPECIALIST Work Phone: [facility] CenterNnhlwealkr37-13-4312owokyst and diphtheria toxoids, adsorbed, preservative free, for adult use (5 Lf of tetanus toxoid and 2 Lf of diphtheria toxoid)Daniela Aichholz CREDENTIALS SPECIALIST Work Phone: [facility] CenterPmgsrhuayv86-89-3795vftzowh toxoid, reduced diphtheria toxoid, and acellular pertussis vaccine, adsorbedLisa Aichholz CREDENTIALS SPECIALIST Work Phone: [facility] Payers DatePayer CategoryPayerPolicy [id number] [id number] Health InsuranceAETNA [id number] [id number] 1960Private Health [id number] [id number] 2..[id number] 2..1.250921.3.57[id number] 2..1.383275.3.57[id number] 2..1.581019.3.57[id number] 2..1.738074.3.57[id number] 2..1.163519.3.57[id number] 2..1.765347.3.57[id number] 2.0.1.818251.3.57[id number] 2.0.1.257296.3.579.2.1259 Social History DateTypeDetailFacilityStart: 02-25-2022 End: 45-81-2501Olackcb smoking statusEx-smoker (finding)[facility] start: 01-25-2024 End: 35-46-7318Qiq Assigned At BirthMaleExec[facility] of [facility] End: 27-21-0065Gdklfvy of tobacco useCurrent smokerNOMS Healthcare End: 68-76-7707Rizmmjc of tobacco useCigarette SmokerNOMS HealthcareStart: 01-25-2024 End: 17-34-6255Oezbuun use and exposureSmokeless tobacco non-userNOMS Healthcare Start: 01-25-2024 End: 24-68-6962Fhzwyqiww beverage intakeLifetime non-drinker (finding)NOM HealthcareStart: 01-25-2024 End: 23-09-4543Dgngglw of Social functionNOMS HealthcareStart: 56-14-1490Pnh assigned at birthNot on fileNOMS HealthcareHow often do you need to have someone help you when you read instructions, pamphlets, or other written material from your doctor or pharmacy [SILS]NeverNOMS HealthcareWithin the last year, have you been afraid of your partner or ex-partner?NoNOMS HealthcareStart: 42-90-2537Woq often do you get together with friends or relatives?Patient declinedNOMS HealthcareAre you now , , , , never or living with a partner?MarriedNOMS HealthcareNEGATED: Highlighted rowStart: NINF History of tobacco usePassive smokerNOMS Healthcare Functional Status UfjkQrtshndszaUvdrtoZwsgpoci30-06-3904Dsqkzcq Health Questionnaire 2 item (PHQ- 2) [Reported][facility] Cmpofrnsgi55-16-4009Xbrhfpr Health Questionnaire 2 item (PHQ- 2) [Reported][facility] CenterFrcyruywxm15-26-2751Frulm score [AUDIT-C]0 01/24/2025 2:52 PM EDT Khalif, GenericNOMS Vwhmxyqlgm61-18-0195Oxd often do you have a drink containing alcohol?Never 01/24/2025 2:52 PM EDT Mychart, Generic NeverNOCox MonettHcjfavqsds86-28-9778Lzrhedggry statusPatient does not drink 01/24/2025 2:52 PM EDT Mychart, Generic Patient does not drinkNOCox MonettNlzmasteyb57-48-5909Pbv often do you have 6 or more drinks on 1 occasion?Never 01/24/2025 2:52 PM EDT Mychart, Generic NeverWashington University Medical CenterWrplubcboi88-18-2929Edoqxzxjkq StatusN/AExec[facility] 263156-99-6018Wchnjodbcq StatusN/AExec[facility] Clinical Notes 02-25-2022 to 03-20-2025 Note Date & WkqzDuagCjtsikbr91-49-3663 NoteUT Electrophysiology Consult Note [place] [facility] Reason for visit: afib 03/20/2025 Patient is here today for a 6 month follow up. Patient states he is feeling fine. Patient denies chest pain, SOB, palpitations, leg swelling, fatigue or dizziness. 30-day event monitor that was placed showed sinus rhythm with no evidence of any SVT or A-fib or tachycardia except for occasional PVCs and PACs Review of Systems Constitutional: Negative. HPI: Serg Velasquez is a 70 y.o. year old with past medical history [...] CARDIOVERSION 07/22/2016 CHOLECYSTECTOMY HERNIA REPAIR SH: Social Drivers of Health Tobacco Use: Medium Risk (03/20/2025) Patient History Smoking Tobacco Use: Former Smokeless Tobacco Use: Never Passive Exposure: Not on file Alcohol Use: Not At Risk (01/24/2025) Received from [facility] AUDIT-C Frequency of Alcohol Consumption: Never Average Number of Drinks: Patient does not drink Frequency of Binge Drinking: Never Financial Resource Strain: Patient Declined (01/24/2025) Received from [facility] Overall Financial Resource Strain (CARDIA) Difficulty of Paying Living Expenses: Patient declined Food Insecurity: Patient Declined (01/24/2025) Received from [facility] Hunger Vital Sign Worried About Running Out of Food in the Last Year: Patient declined Ran Out of Food in the Last Year: Patient declined Transportation Needs: No Transportation Needs (01/24/2025) Received from [facility] PRAPARE - Transportation Lack of Transportation (Medical): No Lack of Transportation (Non-Medical): No Physical Activity: Not on file Stress: Not on file Social Connections: Unknown (01/24/2025) Received from [facility] Social Connection and Isolation Panel [NHANES] Frequency of Communication with Friends and Family: Once a week Frequency of Social Gatherings with Friends and Family: Patient declined Attends [employer] Services: More than 4 times per year Active Member of Clubs or Organizations: No Attends Club or Organization Meetings: Never Marital Status: Intimate Partner Violence: Not At Risk (01/24/2025) Received from [facility] Humiliation, Afraid, Rape, and Kick questionnaire Fear of Current or Ex-Partner: No Emotionally Abused: No Physically Abused: No Sexually Abused: No Depression: Not at risk (01/30/2025) Received from [facility] PHQ-2 Patient Health Questionnaire-2 Score: 0 Housing Stability: Unknown (01/24/2025) Received from [facility] Housing Stability Vital Sign Unable to Pay for Housing in the Last Year: No Number of Times Moved in the Last Year: Not on file Homeless in the Last Year: No Utilities: Not on file Health Literacy: Adequate Health Literacy (01/24/2025) Received from [facility] B1300 Health Literacy Frequency of need for help with medical instructions: Never Allergies: No Known Allergies Weight: 75.3kg Visit Vitals BP 106/66 (BP Location: Right arm, Patient Position: Sitting) Pulse 74 Ht 1.727 m (5' 8 ) Wt 75.3 kg (166 lb) SpO2 98% BMI 25.24 kg/m??? Smoking Status Former BSA 1.9 m??? Meds: Current Outpatient Medications on File Prior to Visit Medication Sig Dispense Refill aspirin 81 mg capsule Take by mouth. atorvastatin (Lipitor) 40 mg tablet Take 40 mg by mouth at bedtime. Eliquis 5 mg tablet TAKE 1 TABLET BY MOUTH EVERY MORNING AND TAKE 1 TABLET BY MOUTH AT BEDTIME 180 tablet 3 losartan (Cozaar) 50 mg tablet Take 50 [...] ear Nose: no lesions on external nose O (more content not included)...[facility]05-20-2025 History of Present illness Narrative* Daniela Mendoza NP - 01/30/2025 11:32 AM EDTAssociated Problem(s): Paroxysmal atrial fibrillation (CMS/HCC) On eliquis, cardiology is talking about taking him off eliquis and placing loop recorder Cont b keysha * Daniela Mendoza NP - 01/30/2025 10:00 AM EDT Images from the original note were not included. Serg Velasquez is a 70 y.o. 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 Current diabetic treatment includes oral agent (dual therapy). He is following a generallyhealthy diet. His overall blood glucose range is 130-140 mg/dl. An FAZAL inhibitor/angiotensin II receptor keysha is not being taken. Eye exam is [...] blockers. The current treatment provides significant improvement. Thereare no compliance problems. Hypertensive end-organ damage includes CAD/MN. There is no history of heart failure [...] feet frequently monitoring for open wounds , andalso recommend yearly eye exam. Pt should attempt [...] and placing loop recorder Cont b keysha * Daniela Mendoza NP - 01/30/2025 6:20 AM EDTAssociated Problem(s): Vitamin D deficiency Check labs * Daniela Mendoza NP - 01/30/2025 6:20 AM EDTAssociated Problem(s): Mixed hyperlipidemia (CMS/HCC) On statin therapy Check labs yearly and prn dose changes * Daniela Mendoza NP - 01/30/2025 6:19 AM EDTAssociated Problem(s): Encounter for subsequent annual wellness visit (AWV) in Medicare patient Reviewed Ht/Wt/BMI Recommend eye exam yearly Recommend dental exams twice a year Balance work/leisure activities Exercises is recommended most days of the week (appropriate as chronic conditions allow) Follow up yearly and prn * Daniela Mendoza NP - 01/30/2025 6:18 AM EDTAssociated Problem(s): DM w/o complication type II Check blood sugars daily, notify if <70 or >200. Take medications (pills or insulin) as directed. Monitor for s/s of hypoglycemia (sweaty, dizziness, nausea, vomiting, or shakiness). Watch for increase in thirst, urination, or appetite. Inspect feet frequently monitoring for open wounds , andalso recommend yearly eye exam. Pt should attempt to remain as physically active as chronic conditions allow, as well as trying to follow a diet low in carbohydrates, and simple sugars. Current meds: statin, losartan, metformin, pioglitazone A1c: 7.8% 01/30/25 Would like to see less than 7.5%, consider jardiance, however cost may be a factor, will think about it * Daniela Mendoza NP - 01/30/2025 6:17 AM EDTAssociated Problem(s): Chronic atrial fibrillation (HCC) (CMS/HCC) (Resolved 01/30/2025) Continue with Eliquis, as well as lopressor Follows with cardiology * Daniela Mendoza NP - 01/30/2025 6:17 AM EDTAssociated Problem(s): Benign essential hypertension (CMS/HCC) Please check blood pressure daily and record DASH diet Limit caffeine Take medication as directed Contact office if chest pain, pressure, dizziness, shortness of breath, swelling legs Recommend slow position changes documented in this [facility]05-20-2025 Instructions* Patient Instructions* Daniela Mendoza NP - 01/30/2025 10:00 AM EDT Get labs fasting documented in this [facility]12-17-2024 NoteUT Electrophysiology Consult Note [place] [facility] Reason for visit: afib HPI: Serg Velasquez is a 69 y.o. year old with past medical history of HTN, HLD, paroxsymal atrial fibrillation on elliquis, s/p cardioversion in 2016 and most recent in 01/2021. Has maintained [...] Tobacco Use: Medium Risk (07/25/2024) Received from [facility] Patient History Smoking Tobacco Use: Former Smokeless Tobacco Use: Never Passive Exposure: Never Alcohol Use: Not on file Financial Resource Strain: Not on file Food Insecurity: Not on file Transportation Needs: Not on file Physical Activity: Not on file Stress: Not on file Social Connections: Not on file Intimate Partner Violence: Unknown (11/04/2023) [place] Safety & Environment Fear of Current or Ex-Partner: Not on file Emotionally Abused: Not on file Physically Abused: Not on file Sexually Abused: Not on file Physically or Sexually Abused: Not on file Depression: Not at risk (01/25/2024) Received from [facility] PHQ-2 Patient Health Questionnaire-2 Score: 0 Housing [...] Valve: Mild-moderate tricuspid regurgitation (more content not included)...[facility]12-02-2024 Miscellaneous Notes* Telephone Encounter - Daniela Mendoza NP - 08/14/2024 8:37 AM EST Please contact patient regarding if he checked with his insurance about either adding Farxiga or possibly Jardiance to his medication for treatment of his diabetes? [place] documented in this encounterWashington University Medical CenterIfujsxxotx43-93-9635 Telephone encounter Note* Telephone Encounter - Daniela Mendoza NP - 08/14/2024 8:37 AM EST Please contact patient regarding if he checked with his insurance about either adding Farxiga or possibly Jardiance to his medication for treatment of his diabetes? [place] [facility] CenterEhrgbkouff48-36-9938 History of Present illness Narrative* Daniela Mendoza NP - 07/25/2024 9:31 AM ESTAssociated Problem(s): Obstructive sleep apnea syndrome Does not wear a machine * Daniela Mendoza NP - 07/25/2024 8:40 AM EST Images from the original note were not [...] mellitus, dyslipidemia and hypertension. Current diabetic treatment includesoral agent (dual therapy). He is compliant with treatment all of the time. Exercise: no organized exercise, is active around the house. His overall blood glucose range is 140-180 mg/dl. An FAZAL inhibitor/angiotensin II receptor keysha is being taken. He does not see a casting assistant.Eye exam is current. Hypertension This is a chronic problem. The current episode started more than 1 year ago. The problem is unchanged. The problem is controlled. Pertinent negatives include no blurred vision, chest pain, headaches,orthopnea, palpitations, peripheral edema or shortness of breath. There are no associated agents tohypertension. Risk factors for coronary artery disease include diabetes mellitus, dyslipidemia and male gender. Past treatments include beta blockers and angiotensin blockers. The current treatment provides significant improvement. There are no compliance problems. Hypertensive end-organ damage includes CAD/MN and PVD. SUBJECTIVE: MEDICATIONS: Current Outpatient Medications [...] feet frequently monitoring for open wounds , andalso recommend yearly eye exam. Pt should attempt [...] Relevant Orders Flu vaccine, trivalent, adjuvanted, PF ([id number]) (Fluad trivalent single dose syringe) (Completed) * Daniela Mendoza NP - 07/25/2024 6:25 AM ESTAssociated Problem(s): Peripheral vascular disease, unspecified (CMS/HCC) Continue with blood pressure and diabetes control Also is on eliquis as well Legs feel fatigued Will order RAFA's * Daniela Mendoza NP - 07/25/2024 6:24 AM ESTAssociated Problem(s): Anticoagulated Continue with eliquis for treatment of afib * Daniela Mendoza NP - 07/25/2024 6:23 AM ESTAssociated Problem(s): DM w/o complication type II (CMS/HCC) Check blood sugars daily, notify if <70 or >200. Take medications (pills or insulin) as directed. Monitor for s/s of hypoglycemia (sweaty, dizziness, nausea, vomiting, or shakiness). Watch for increase in thirst, urination, or appetite. Inspect feet frequently monitoring for open wounds , andalso recommend yearly eye exam. Pt should attempt to remain as physically active as chronic conditions allow, as well as trying to follow a diet low in carbohydrates, and simple sugars. A1c is 8.1%, needs to have tighter blood sugar control, check sugars Will check with insurance on dobbs of SGLT-2 * Daniela Mendoza NP - 07/25/2024 6:23 AM ESTAssociated Problem(s): GERD (gastroesophageal reflux disease) Recommendations: freq small meals, nothing to eat or drink at least 2 hours prior to bed, limit caffeine, alcohol, as well as spicy foods Meds to limit or avoid if possible: NSAIDS Elevate HOB if possible Takes meds as needed * Daniela Mendoza NP - 07/25/2024 6:23 AM ESTAssociated Problem(s): Chronic atrial fibrillation (HCC) (CMS/HCC) Continue with Eliquis, as well as lopressor Follows with cardiology * Daniela Mendoza NP - 07/25/2024 6:23 AM ESTAssociated Problem(s): Benign essential hypertension (CMS/HCC) Please check blood pressure daily and record DASH diet Limit caffeine Take medication as directed Contact office if chest pain, pressure, dizziness, shortness of breath, swelling legs Recommend slow position changes documented in this [facility]11-12-2024 Instructions* Patient Instructions* Daniela Mendoza NP - 07/25/2024 8:40 AM EST Check in insurance if Farxiga 5mg daily or Jardiance 10mg daily: see how much does this cost for 30day or 90 day Will check vascular test to see about legs [id number] Discharge instructions Patient Education 03/03/2022 09:53:00 Hematuria, Adult Hematuria, Adult Hematuria is blood in the urine. Blood may be visible in the urine, or it may be identified with a test. This condition can be caused by infections of the bladder, urethra, kidney, or prostate. Otherpossible causes include: Kidney stones. Cancer of the [...] blood in your urine, even if it ispainless or the blood stops without treatment. Blood in the urine, when it happens and then stops and then happens again, can be a symptom of a very serious condition, including cancer. There is no pain in the initial stages of many urinary cancers. Follow these instructions at home: Medicines Take yggp-aqa-erhicvy and prescription medicines only as told by your health care provider. If you were prescribed an antibiotic medicine, take it as told by your health care provider. Do notstop taking the antibiotic even if you start [...] about any blood in your urine, even ifit is painless or the blood stops without treatment. Take ubsf-zvu-abmsosn and prescription medicines only as told by your health care provider. Drink enough fluid to keep your urine clear or pale yellow. This information is not intended to replace advice given to you by your health care provider. Make sure you discuss any questions you have with your health care provider. Document Released: 08/30/2006 Document Revised: 01/24/2020 Document Reviewed: 10/02/2017 [employer] Patient Education 2020 [employer]. Follow Up Care 02/25/2022 09:04:37 With:Nick CHAVES, Milagro Meyer URL, [facility] Address: [address], [place] [address]- [phone] When: only if needed [facility] 06-15-2022 Hospital Discharge instructions Patient Education 02/25/2022 08:47:16 Hematuria, Adult Hematuria, Adult Hematuria is blood in the urine. Blood may be visible in the urine, or it may be identified with a test. This condition can be caused by infections of the bladder, urethra, kidney, or prostate. Otherpossible causes include: Kidney stones. Cancer of the [...] blood in your urine, even if it ispainless or the blood stops without treatment. Blood in the urine, when it happens and then stops and then happens again, can be a symptom of a very serious condition, including cancer. There is no pain in the initial stages of many urinary cancers. Follow these instructions at home: Medicines Take tgup-pdl-jfzljzs and prescription medicines only as told by your health care provider. If you were prescribed an antibiotic medicine, take it as told by your health care provider. Do notstop taking the antibiotic even if you start [...] about any blood in your urine, even ifit is painless or the blood stops without treatment. Take ivpu-nho-rjjncla and prescription medicines only as told by your health care provider. Drink enough fluid to keep your urine clear or pale yellow. This information is not intended to replace advice given to you by your health care provider. Make sure you discuss any questions you have with your health care provider. Document Released: 08/30/2006 Document Revised: 01/24/2020 Document Reviewed: 10/02/2017 [employer] Patient Education 2020 [employer]. Follow Up Care 01/28/2022 12:08:00 With:Milagro Romero MD, JASON, [facility] Address: When: Unknown [facility] evalmrptkw + Plan note Future Appointments Appointment Date:03/03/2022 09:30:00 AM Scheduled Provider:Milagro Romero MD Location:[facility] Appointment Type:URO Procedure 15 min Diagnostic Tests Pending * Urine Cytology ([facility]) 02/25/22 [facility] evaluation note* Diagnosis Encounter for subsequent annual wellness [...] Essential hypertension, benign documented in this encounter [facility] HealthcareEvaluation note* Diagnosis Encounter for subsequent [...] esophagitis Esophageal reflux documented in this encounter [facility] HealthcareEvaluation note* Diagnosis Type 2 diabetes mellitus without complication, without long-term current use of insulin (CMS/HCC) documented in this encounter [facility] HealthcareEvaluation note* Diagnosis Encounter for subsequent [...] of insulin (CMS/HCC) documented in this encounter [facility] HealthcareEvaluation note* Diagnosis Encounter for subsequent [...] Essential hypertension, benign documented in this encounter [facility] HealthcareEvaluation note* Diagnosis Encounter for subsequent [...] available for this section [facility] progress note No data available for this section [facility] Summary Purpose Family History No Family [...] and content) DATE CREATED AUTHOR 02/08/2021 [facility] DATE CREATED AUTHOR AUTHOR'S ORGANIZ ATION 03/04/2022 [facility] DATE CREATED AUTHOR AUTHOR'S ORGANIZ ATION 07/20/2022 [facility] DATE CREATED AUTHOR AUTHOR'S ORGANIZ ATION 01/31/2025 [facility] DATE CREATED AUTHOR AUTHOR'S ORGANIZ ATION 03/24/2025 [facility] Care Team (unrecognized sect ion and content) Team MemberRelationshipSpecialtyStart DateEnd Date Daniela Mendoza NP [address] [place] [address] [facility] Pacbwgdm37/6/23Team MemberRelationshipSpecialtyStart DateEnd Date Zeeshan Patel MD [address] [place] [address] PCP - [facility]07/25/24 Daniela Mendoza NP [address] [place] [address] [facility]07/19/23Team MemberRelationshipSpecialtyStart DateEnd Date Zeeshan Patel MD [address] [place] [phone] PCP - [facility]07/25/24 Daniela Mendoza NP [address] [place] [address] [facility]07/19/23Te MemberRelationshipSpecialtyStart DateEnd Date Zeeshan Patel MD [address] [place] [address] PCP - [facility]07/25/24 Daniela Mendoza NP [address] [place] [address] [facility]07/19/23Te MemberRelationshipSpecialtyStart DateEnd Date Daniela Mendoza NP [address] [place] [address] [facility]07/19/23Team MemberRelationshipSpecialtyStart DateEnd Date Zeeshan Patel MD [address] [place] [address] PCP - [facility]07/25/24 Daniela Mendoza NP [address] [place] [address] [facility]07/19/23Te MemberRelationshipSpecialtyStart DateEnd Date Zeeshan Patel MD [address] [place] [address] PCP - [facility]07/25/24 Daniela Mendoza NP [address] [place] [address] [facility]07/19/23Te MemberRelationshipSpecialtyStart DateEnd Date Zeeshan Patel MD [address] [place] [address] PCP - [facility]07/25/24 Daniela Mendoza NP [address] [place] [address] [facility]07/19/23Te MemberRelationshipSpecialtyStart DateEnd Date Zeeshan Patel MD [address] [place] [address] PCP - [facility]07/25/24 Daniela Mendoza NP [address] [place] [address] [facility]07/19/23Team MemberRelationshipSpecialtyStart DateEnd Date Zeeshan Patel MD [address] [place] [phone] PCP - [facility]07/25/24 Daniela Mendoza NP [address] [place] [address] [facility] Pract[facility]er[facility]07/19/23Team MemberRelationshipSpecialtyStart DateEnd Date Zeeshan Patel MD PCP - [facility]07/25/24 Daniela Mendoza NP [facility]erAd[facility]07/19/23 Reason for Visit (unrecogniz ed section and content) ReasonOnset DateCommentsMed Bvzpxw384ReasonOnset DateCommentsMed Refill 10/03/2024ReasonOnset DateCommentsMed Pqcxjb1301/01/2025ReasonCommentsMedicare Annual Wellness Visit Initial FOR RECORDS PERTAINING [...] BE BASED ON THE PRIMARY CLINICAL RECORDS. [facility]RegistryLove [facility]. provides no warranty or guarantee of the accuracy or completeness of information in this document.
--- OUTSIDE RECORDS SUMMARY | 2025-08-20 06:51 | XMS_ITS | Clinical Summary ---
Author Organization [facility] Address [address] [place] [address] Care Team Providers Care Engineer Station Mainline Name Role Phone Daniela Mendoza MD Primary Care Provider [phone] Allergies No known active allergies Medications MedicationSigDispense QuantityRefillsLast FilledStart DateEnd DateStatus aspirin 81 mg capsule Take by mouth.02/25/2022ctive atorvastatin (Lipitor) 40 mg tablet Take 40 mg by mouth at bedtime.02/25/2022ctive losartan (Cozaar) 50 mg tablet Take 50 mg by mouth in the morning and at bedtime.02/25/2022ctive metFORMIN (Glucophage) 1,000 mg tablet Take 1,000 mg by mouth with breakfast and with evening meal.02/25/2022ctive pioglitazone (Actos) 45 mg tablet Take 45 mg by mouth in the morning.Active metoprolol tartrate (Lopressor) 50 mg tablet Take 50 mg by mouth in the morning and at bedtime.Active Eliquis 5 mg tablet Indications:PAF (paroxysmal atrial fibrillation) (CMS/HCC)TAKE 1 TABLET BY MOUTH EVERY MORNING AND TAKE 1 TABLET BY MOUTH AT BEDTIME 180 tablet 5Active Active Problems ProblemNoted DateDiagnosed DateNeeds flu shot07/25/2024Other thrombophilia 07/25/2024eripheral vascular disease, dpziqzbsdok43/12/2024nticoagulated 01/25/2024symptomatic microscopic ferglxpov19/14/2024Encounter for subsequent annual wellness visit (AWV) in Medicare gwssaph3401/25/2024Screening for prostate wkezkp0901/25/2024 Overview (08/29/2024): 02/25/24 0.16 Llvphawhvckti21/06/2024Vitamin D letusnyjrn73/06/2024DM w/o complication type II 01/06/2024GERD (gastroesophageal reflux disease)04/09/2008Obstructive sleep apnea veagnuev40/28/2008Primary hypertension Assessment & Plan (09/29/2023 10:01 AM EST): Hypertension is well controlled Continue losartan, metoprolol Mixed hyperlipidemia Assessment & Plan (09/29/2023 10:02 AM EST): Continue lipitor 40 mg Script for annual labs provided Atrial fibrillation Assessment & Plan (09/29/2023 11:09 AM EST): SOY2AQ7-SJNa= 3- HTN, DM, Age Continue eliquis anticoagulation, denied bleeding tendencies Continue lopressor 50 mg bid- currently EKG shows in rhythm- Sinus bradycardia Family History Medical HistoryRelationNameCommentsDiabetesFatherCoronary artery diseaseMother HyperlipidemiaMotherHypertensionMotherRelationNameStatusCommentsFatherDeceased MotherDeceased Social History Tobacco UseTypesPacks/DayYears UsedDateSmoking Tobacco: FormerCigarettes Smokeless Tobacco: Never Tobacco Cessation:Counseling Given: Not Answered Alcohol UseStandard Drinks/WeekCommentsNot Currently0 (1 standard drink = 0.6 oz pure alcohol)UT Safety & EnvironmentAnswerDate RecordedFear of Current or Ex-PartnerNot on file11/04/2023Emotionally AbusedNot on file11/04/2023hysically AbusedNot on file11/04/2023Sexually AbusedNot on file11/04/2023hysically or Sexually AbusedNot on file11/04/2023Sex and Gender InformationValueDate Recorded Sex Assigned at BirthNot on fileLegal PwkTmtn7603/11/2022 9:17 PM EDTGender IdentityNot on fileSexual OrientationNot on file Last Filed Vital Signs Vital SignReadingTime TakenCommentsBlood Nubyssuz111/6607 1:04 PM EDT Emfmv6047 1:04 PM EDTTemperature--Respiratory Jhws989709/29/2023 9:35 AM ESTOxygen Axkwrzmhjd81%03/20/2025 1:04 PM EDTInhaled Oxygen Concentration-- Zbepck95.3 kg (166 lb)03/20/2025 1:04 PM AZFZrvhly177.7 cm (5' 8 )03/20/2025 1:04 PM EDTBody Mass Index25.24003/20/2025 1:04 PM EDT Plan of Treatment Health MaintenanceDue DateLast DoneCommentsCT Psmypoasaqsd1957Diabetes: Hemoglobin A1C1957FIT-DNA1957FIT1957FOBT1957Medicare Annual Wellness (AWV)1955 3989Ldhlgbozzbuov1957Diabetes: Retinopathy Llywvzzag10/29/1967Depression Htiytoqcp35/29/1969Diabetes: Urine Protein Tthzhdzkh73/29/1976Adult Gveqjos60/01//09/2005, 09/13/2005Fall Risk Urgtodjfx95/29/5747Njchhbmkcum59Colorectal Cancer Screening 5COVID-19 Vaccine ( season), 07/28/2021, 07/28/2021, Additional history existsInfluenza Vaccine (#1)511/08/2024, 07/21/2023, 07/11/2015, Additional history existsPneumococcal Vaccine: 50+ Years Spgsbzzdc02/09/2023, 06/05/2014Zoster UrbrliueIlvviclrq52/11/2023, 10/22/2022HIB VaccinesAged OutNo longer eligible based on patient's age to complete this topic HPV VaccinesAged OutNo longer eligible based on patient's age to complete this topicIPV VaccinesAged OutNo longer eligible based on patient's age to complete this topicMeningococcal B VaccineAged OutNo longer eligible based on patient's age to complete this topicMeningococcal VaccineAged OutNo longer eligible based on patient's age to complete this topicRotavirus VaccinesAged OutNo longer eligible based on patient's age to complete this topic Insurance * Guarantor: Serg Velasquez TAccokarthikeyan TypeRelation to PatientDate of BirthPhone Billing AddressPersonal/CusxntMsrx1955 [facility] [address] [place] [address] Care Teams Team MemberRelationshipSpecialtyStart DateEnd Date Daniela Mendoza MD [address] [place] [address] PCP - General09/15/22
--- OUTSIDE RECORDS SUMMARY | 2025-08-20 06:51 | XMS_ITS | Clinical Summary ---
Author Organization [facility] Address [address] [place] [address] Care Team Providers Care Licensed Loan Officer Name Role Phone Dnaiela Mendoza NP Unavailable [phone] Zeeshan Patel MD Primary Care Provider [phone] Allergies No known active allergies Medications MedicationSigDispense QuantityRefillsLast FilledStart DateEnd DateStatus apixaban (Eliquis) 5 MG tablet Take 5 mg by mouth in the morning and 5 mg in the evening.4Active losartan (Cozaar) 100 MG tablet Indications:Benign essential hypertensionTake 1 tablet (100 mg) by mouth Daily 90 tablet 4Active pioglitazone (Actos) 45 MG tablet Indications:Type 2 diabetes mellitus without complication, without long-term current use of insulin (HCC)Take 1 tablet (45 mg) by mouth Daily 90 tablet 4Active metFORMIN (Glucophage) 1000 MG tablet Indications:Type 2 diabetes mellitus without complication, without long-term current use of insulin (HCC)Take 1 tablet (1,000 mg) by mouth in the morning and 1 tablet (1,000 mg) in the evening. Take with meals. 180 tablet 5Active atorvastatin (Lipitor) 40 MG tablet Indications:Mixed hyperlipidemiaTake 1 tablet (40 mg) by mouth at bedtime 90 tablet 5Active metoprolol tartrate (Lopressor) 50 MG tablet Indications:Chronic atrial fibrillation (HCC),Benign essential hypertensionTake 1 tablet (50 mg) by mouth in the morning and 1 tablet (50 mg) before bedtime. 180 tablet 5Active aspirin 81 MG EC tablet Take 81 mg by mouth DailyActive Active Problems ProblemNoted DateDiagnosed DateColon cancer xhyprsoyx04/20/2025Paroxysmal atrial ubogzjbtefto43/20/2025 Assessment & Plan (01/30/2025 11:32 AM EDT): On eliquis, cardiology is talking about taking him off eliquis and placing loop recorder Cont b keysha Other thrombophilia ([facility]-HCC)07/25/2024eripheral vascular disease, unspecified 07/25/2024 Assessment & Plan (07/25/2024 9:31 AM EST): Continue with blood pressure and diabetes control Also is on eliquis as well Legs feel fatigued Will order RAFA's Needs flu shot07/25/2024Screening for prostate xdebun2901/25/2024 Overview (03/06/2025): 02/25/24 0.16 03/06/25: 0.15 Ahvjfprzawwrxs70/14/2024 Assessment & Plan (07/25/2024 6:24 AM EST): Continue with eliquis for treatment of afib Asymptomatic microscopic ryguibaje07/14/2024Encounter for subsequent annual wellness visit (AWV) in Medicare oravcny2701/25/2024 Assessment & Plan (01/30/2025 6:19 AM EDT): [...] Follow up yearly and prn Vitamin D koagdhnmio07/06/2024 Assessment & Plan (01/30/2025 6:20 AM EDT): Check labs Mroiqsfeezqea32/06/2024enign essential dsziozndhghs48/25/2024 Overview (01/06/2024): Last Assessment & Plan: Hypertension [...] metoprolol Check labs DM w/o complication type II01/06/2024 Assessment & Plan (01/30/2025 11:33 AM EDT): [...] carbohydrates, and simple sugars. Check labs Mixed itizzziscmdlmy52/25/2024 Overview (01/06/2024): Last Assessment & Plan: Continue lipitor 40 mg Script for annual labs provided Assessment & Plan (01/30/2025 6:20 AM EDT): On statin therapy Check labs yearly and prn dose changes Obstructive sleep apnea aczcqczr13/28/2008 Assessment & Plan (07/25/2024 9:31 AM EST): Does not wear a machine GERD (gastroesophageal reflux disease)04/09/2008 Assessment & Plan (07/25/2024 9:32 AM EST): Recommendations: freq small meals, nothing to eat or drink at least 2 hours prior to bed, limit caffeine, alcohol, as well as spicy foods Meds to limit or avoid if possible: NSAIDS Elevate HOB if possible Takes meds as needed Resolved Problems ProblemNoted DateDiagnosed DateResolved DateChronic atrial fibrillation Overview (01/06/2024): Last Assessment & Plan: RNO5TN6-WXPx= 3- HTN, DM, Age Continue eliquis anticoagulation, [...] and eliquis Check labs Continue with cardiology Immunizations ImmunizationAdministration DatesNext DueInfluenza Whole07/14/2011Influenza, High-dose Seasonal, Quadrivalent, Preservative Free07/21/2023Influenza, seasonal, nbdexizknr63/06/2015Influenza, seasonal, injectable, preservative free 07/11/2015,06/05/2014,06/27/2013Influenza, seasonal, intradermal, preservative free09/09/2012Influenza, trivalent, ymcjvxlwhi79/12/2024Janssen SARS-CoV-2 07/28/2021,1Pfizer SARS-CoV-2 Vaccination 5-11 y.o.07/28/2021, 1Pneumococcal Conjugate PCV 3Pneumococcal Polysaccharide UMUD4534Td (adult), 5 Lf tetanus toxoid, preservative free, adsorbed 09/13/2005Tdap09/13/2005Zoster, Oftyudmxuap35/11/2023,10/22/2022 Social History Tobacco UseTypesPacks/DayYears UsedDateSmoking Tobacco: FormerCigarettesQuit: 1989Passive Smoke Exposure: NeverSmokeless Tobacco: Never Tobacco Cessation:Counseling Given: Not Answered Alcohol UseStandard Drinks/WeekCommentsNever0 (1 standard drink = 0.6 oz pure alcohol)B1300 Health LiteracyAnswerDate RecordedHow often do you need to have someone help you when you read instructions, pamphlets, or other written material from your doctor or pharmacy?Never01/24/2025Humiliation, Afraid, Rape, and Kick questionnaireAnswerDate RecordedWithin the last year, have you been afraid of your partner or ex-partner?No01/24/2025Within the last year, have you been humiliated or emotionally abused in other ways by your partner or ex-partner?No01/24/2025Within the last year, have you been kicked, hit, slapped, or otherwise physically hurt by your partner or ex-partner?No01/24/2025Within the last year, have you been raped or forced to have any kind of sexual activity by your partner or ex-partner?No01/24/2025Social Connection and Isolation Panel AnswerDate RecordedIn a typical week, how many times do you talk on the phone with family, friends, or neighbors?Once a week01/24/2025How often do you get together with friends or relatives?Patient cgpqbbqa90/14/2025How often do you attend episcopal or faith services?More than 4 times per year01/24/2025Do you belong to any clubs or organizations such as episcopal groups, unions, fraternal or athletic groups, or school groups?No01/24/2025How often do you attend meetings of the clubs or organizations you belong to?Never01/24/2025re you , , , , never , or living with a partner? 01/24/2025UDIT-CAnswerDate RecordedQ1: How often do you have a drink containing alcohol?Never01/24/2025Q2: How many drinks containing alcohol do you have on a typical day when you are drinking?Patient does not drink01/24/2025Q3: How often do you have six or more drinks on one occasion?Never01/24/2025Overall Financial Resource Strain (CARDIA)AnswerDate RecordedHow hard is it for you to pay for the very basics like food, housing, medical care, and heating?Patient declined 01/24/2025PHQ-2AnswerDate RecordedPatient Health Questionnaire-2 Score0 01/30/2025Hunger Vital SignAnswerDate RecordedWithin the past 12 months, you worried that your food would run out before you got the money to buymore.Patient /14/2025Within the past 12 months, the food you bought just didn't last and you didn't have money to get more.Patient bihfadjs30/14/2025PRAPARE - TransportationAnswerDate RecordedIn the past 12 months, has lack of transportation kept you from medical appointments or from getting medications?No 01/24/2025In the past 12 months, has lack of transportation kept you from meetings, work, or from getting things needed for daily living?No01/24/2025 Housing Stability Vital SignAnswerDate RecordedIn the last 12 months, was there a time when you were not able to pay the mortgage or rent on time?No01/24/2025 Number of Times Moved in the Last YearNot on file01/24/2025t any time in the past 12 months, were you homeless or living in a mcc (including now)?No 01/24/2025Sex and Gender InformationValueDate RecordedSex Assigned at BirthNot on fileLegal VqzKtsc2911/25/2022 6:55 PM EDTGender IdentityNot on fileSexual OrientationNot on file Last Filed Vital Signs Vital SignReadingTime TakenCommentsBlood Nyqrjooq918/78001/30/2025 10:22 AM EDT Ynjtd426201/30/2025 10:22 AM MYJZgxcdbomedg40.9 ??C (98.5 ??F)01/30/2025 10:22 AM EDTRespiratory Xqua109301/30/2025 10:22 AM EDTOxygen Pebrybsimn25%01/30/2025 10:22 AM EDTInhaled Oxygen Concentration--Dhtsux86.1 kg (167 lb 12.8 oz)01/30/2025 10:22 AM GYVXdlqva298.7 cm (5' 8 )07/25/2024 8:32 AM ESTBody Mass Index25.51 07/25/2024 8:32 AM EST Plan of Treatment Not on file Insurance * Guarantor: Serg Velasquez TAc TypeRelation to PatientDate of BirthPhone Billing AddressPersonal/AmfzfvSlbh1955 [address] [address] Care Teams Team MemberRelationshipSpecialtyStart DateEnd Zeeshan Patel MD PCP - GeneralFamily Olsyxiob51/12/24 Daniela Mendoza NP Nurse PractitionerFamily Ovuzusyq85/6/23
--- OUTSIDE RECORDS SUMMARY | 2025-08-20 06:51 | XMS_ITS | Clinical Summary ---
Author Organization [employer] [facility] tem Address [id number] [address] [place] [address] Care Team Providers Care Fuel Retrofitting Technician Name Role Phone Daniela Mendoza APRN-INDUSTRIAL DESIGN INTERN Primary Care Provider Allergies No known active allergies Medications MedicationSigDispense QuantityRefillsLast FilledStart DateEnd DateStatus ELIQUIS 5 mg tablet Take 1 tablet by mouth 2 (two) times a day.03/23/2022ctive aspirin 81 mg Take 1 tablet by mouth in the morning.Active atorvastatin (LIPITOR) 40 mg tablet Take 1 tablet by mouth in the morning.01/19/2022ctive metFORMIN (GLUCOPHAGE) 1000 mg tablet Take 1 tablet by mouth in the morning and 1 tablet before bedtime.01/14/2022 Active metoprolol tartrate (LOPRESSOR) 50 mg tablet Take 1 tablet by mouth in the morning and 1 tablet before bedtime.01/19/2022 Active pioglitazone (ACTOS) 30 mg tablet Take 1 tablet by mouth in the morning.02/11/2022ctive losartan (COZAAR) 100 mg tablet Take 100 mg by mouth in the morning.Active Active Problems No known active problems Family History Medical HistoryRelationNameCommentsDiabetesFatherPneumoniaMotherRelationName StatusCommentsFatherDeceasedMotherDeceased Social History Tobacco UseTypesPacks/DayYears UsedDateSmoking Tobacco: [id number] - mokeless Tobacco: FormerChewAlcohol UseStandard Drinks/WeekCommentsNot Currently0 (1 standard drink = 0.6 oz pure alcohol)ChildcareAnswerDate Recorded SfbjntxprWhsrjjf69/12/2019EmploymentAnswerDate RecordedEmploymentUnknown 02/22/2019Purpose - LifeAnswerDate RecordedPurpose and direction in lifeUnknown 10/24/2020ex and Gender InformationValueDate RecordedSex Assigned at BirthNot on fileLegal WxmYxeq6204/18/2015 11:24 AM EDTGender IdentityNot on fileSexual OrientationNot on file Last Filed Vital Signs Vital SignReadingTime TakenCommentsBlood Rbqwncnd129/8009 9:19 AM EDT Fyimr7680/30/2022 1:59 PM ORFKzcyyrmvxgt33.3 ??C (97.3 ??F)05/22/2022 9:19 AM EDTRespiratory Weck652005/12/2022 1:59 PM EDTOxygen Vgogvbabaj53%05/12/2022 1:59 PM EDTInhaled Oxygen Concentration--Nwftft94.6 kg (166 lb 9.6 oz)05/22/2022 9:19 AM FKNZrvnob755.7 cm (5' 8 )05/22/2022 9:19 AM EDTBody Mass Index25.3309 9:19 AM EDT Plan of Treatment Health MaintenanceDue DateLast DoneCommentsDepression Ufloynnkr70/29/1969Tobacco Cbevhwfll35/29/1969Adult BMI Xyazgakgh72/29/1975DTaP,Tdap and Td Vaccines (1 - Tdap)01/10/1976Zoster (Shingles) Vaccine (1 of 2)2007bdominal Aortic Aneurysm (AAA) Xhekpn7401/09/2022Fall Risk Uatlreoig94/29/2022Colonoscopy /09/2014Influenza Zrwslvi0605/14/2025RSV ( or age 60+ yrs) (1 - 1-dose 75+ series)01/10/2032 Medical Devices Not on file Insurance Advance Directives TypeDate RecordedPatient RepresentativeExplanationDurable Power of Impregnator Electrolytic Capacitors 05/19/2022 5:11 AM Care Teams Team MemberRelationshipSpecialtyStart DateEnd Date Daniela Mendoza, LIME [employer] WORKER HELPER-INDUSTRIAL DESIGN INTERN PCP - GeneralNurse Practitioner03/23/22
[2025-08-20 08:04] LABS: Anion Gap 14.0; Blood Urea Nitrogen 20.0 mg/dL (7.0-18.0); Calcium 9.7 mg/dL (8.5-10.1); Carbon Dioxide 28.8 mmol/L (21.0-32.0); Chloride 100 mmol/L (98-107); Estimated GFR (African America 58 (>=60 mL/min/1.73m^2); Estimated GFR (Non-African Ame 48 (>=60 mL/min/1.73m^2); Glucose 255 mg/dL (74-106); Potassium 4.8 mmol/L (3.5-5.1); Sodium 138 mmol/L (136-145)
== END 2025-08-20 06:47 | disposition home or self-care (01) ==
LOC: LAB 06:48
PROVIDERS: PCP Nurse Practitioner; Visit Provider Nurse Practitioner
DX: E11.9 Type 2 diabetes mellitus without complications (principal); I10 Essential (primary) hypertension
CPT/HCPCS: 36415; 80048